=== PATIENT | female | born 1990 | race Two or more races ===

== ENCOUNTER 2016-12-05 11:29 | Emergency (ER) | payer SELFPAY ==
--- NOTE | 2016-12-05 11:50 | ER Document Report ---
ED Medical Screen (RME) - General Stated Complaint: VOMITTING,DIARRHEA Notes: started new medications and states her symptoms started immediately after she took them onset: monday c/o vomiting and diarrhea PCP: in [place] I have greeted and performed a rapid initial assessment of this patient. A comprehensive ED assessment and evaluation of the patient, analysis of test results and completion of the medical decision making process will be conducted by additional ED providers. TRAVEL OUTSIDE OF THE [place] IN LAST 30 DAYS: No - Related Data Allergies/Adverse Reactions: No Known Allergies Allergy (Verified 12/05/16 11:47) Past Medical History - Past Medical History Cardiac Medical History: Reports: Hx Hypertension - Hypertensive only with preeclampsia during her . Denies: Hx Congestive Heart Failure, Hx DVT, Hx Heart Attack, Hx Hypercholesterolemia, Hx Pulmonary Embolism Pulmonary Medical History: Denies: Hx Asthma, Hx COPD Neurological Medical History: Denies: Hx Seizures Endocrine Medical History: Reports: Hx Hypothyroidism. Denies: Hx Diabetes Mellitus Type 1, Hx Diabetes Mellitus Type 2, Hx Hyperthyroidism GI Medical History: Denies: Hx Cirrhosis, Hx Gastroesophageal Reflux Disease, Hx Hepatitis Musculoskeltal Medical History: Denies Hx Arthritis Psychiatric Medical History: Reports: Hx Depression Infectious Medical History: Reports: Hx HIV. Denies: Hx Hepatitis - Immunizations Immunizations up to date: Yes Hx Diphtheria, Pertussis, Tetanus Vaccination: Yes Physical Exam - Vital signs Vitals: Temp Pulse Resp BP Pulse Ox 98.0 F 121 H 20 101/68 98 12/05/16 11:46 12/05/16 11:46 12/05/16 11:46 12/05/16 11:46 12/05/16 11:46 Course - Vital Signs Vital signs: Temp Pulse Resp BP Pulse Ox 98.0 F 121 H 20 101/68 98 12/05/16 11:46 12/05/16 11:46 12/05/16 11:46 12/05/16 11:46 12/05/16 11:46
[2016-12-05] MEDS ORDERED: ONDANSETRON HCL 8 MG TABLET PO ONE (11:51)
[2016-12-05 12:14] LABS: ABSOLUTE LYMPHOCYTES (AUTO) 0.5 10^3/uL (0.5-4.7); ABSOLUTE MONOCYTES (AUTO) 0.3 10^3/uL (0.1-1.4); ABSOLUTE NEUT (AUTO) 3.2 10^3/uL (1.7-8.2); BASOPHILS % (AUTO) 0.5 % (0-2); EOSINOPHILS % (AUTO) 1.1 % (0-6); HEMATOCRIT 30.7 % (36.0-47.0); HGB HCT DIFFERENCE -0.7; LYMPHOCYTES % (AUTO) 11.4 % (13-45); MEAN CORPUSCULAR HGB CONC 32.4 g/dL (32.0-36.0); MEAN CORPUSCULAR VOLUME 74 fl (80-97); MONOCYTES % (AUTO) 8.4 % (3-13); RED BLOOD COUNT 4.15 10^6/uL (3.72-5.28); RED CELL DISTRIBUTION WIDTH 15.9 % (11.5-14.0); SEGMENTED NEUTROPHILS % (AUTO) 78.6 % (42-78)
[2016-12-05] MEDS ORDERED: NORMAL SALINE 1000 ML 1,000 ML IV ONE (12:27)
[2016-12-05 12:34] LABS: ALANINE AMINOTRANSFERASE 24 U/L (9-52); ALBUMIN 3.7 g/dL (3.5-5.0); ALKALINE PHOSPHATASE 63 U/L (38-126); ANION GAP 15 (5-19); ASPARTATE AMINO TRANSFERASE 28 U/L (14-36); BILIRUBIN,TOTAL 0.7 mg/dL (0.2-1.3); BLOOD UREA NITROGEN 26 mg/dL (7-20); CALCIUM 9.2 mg/dL (8.4-10.2); CARBON DIOXIDE 24 mmol/L (22-30); CHLORIDE 103 mmol/L (98-107); CREATININE RESULT 0.66 mg/dL (0.52-1.25); GLUCOSE 91 mg/dL (75-110); LIPASE 76.2 U/L (23-300); POTASSIUM 3.6 mmol/L (3.6-5.0); SODIUM 142.3 mmol/L (137-145); TOTAL PROTEIN 6.7 g/dL (6.3-8.2)
[2016-12-05] MEDS ORDERED: MORPHINE SULFATE 10 MG/ML INJ IV ONE (13:15)
--- NOTE | 2016-12-05 15:16 | ER Document Report ---
ED General - General Chief Complaint: Vomiting/Diarrhea Stated Complaint: VOMITTING,DIARRHEA Mode of Arrival: Ambulatory Information source: Patient Notes: 26-year-old female history of HIV who was just started on her antiviral medications began having profuse vomiting and diarrhea 6 hours after. Patient denies any fevers or chills, notes decreased oral intake TRAVEL OUTSIDE OF THE [place] IN LAST 30 DAYS: No - HPI Onset: Other - Three-day duration Onset/Duration: Persistent Quality of pain: No pain Severity: Mild Pain Level: Denies Associated symptoms: Diarrhea, Nausea, Vomiting Exacerbated by: Denies Relieved by: Denies Similar symptoms previously: No Recently seen / treated by doctor: No - Related Data Allergies/Adverse Reactions: No Known Allergies Allergy (Verified 12/05/16 11:47) Past Medical History - Social History Smoking Status: Current Every Day Smoker Cigarette use (# per day): No Chew tobacco use (# tins/day): No Smoking Education Provided: No Frequency of alcohol use: None Drug Abuse: None Family History: Reviewed & Not Pertinent Patient has suicidal ideation: No Patient has homicidal ideation: No - Past Medical History Cardiac Medical History: Reports: Hx Hypertension - Hypertensive only with preeclampsia during her . Denies: Hx Congestive Heart Failure, Hx DVT, Hx Heart Attack, Hx Hypercholesterolemia, Hx Pulmonary Embolism Pulmonary Medical History: Denies: Hx Asthma, Hx COPD Neurological Medical History: Denies: Hx Seizures Endocrine Medical History: Reports: Hx Hypothyroidism. Denies: Hx Diabetes Mellitus Type 1, Hx Diabetes Mellitus Type 2, Hx Hyperthyroidism Renal/ Medical History: Denies: Hx Peritoneal Dialysis GI Medical History: Denies: Hx Cirrhosis, Hx Gastroesophageal Reflux Disease, Hx Hepatitis Musculoskeltal Medical History: Denies Hx Arthritis Psychiatric Medical History: Reports: Hx Depression Infectious Medical History: Reports: Hx HIV. Denies: Hx Hepatitis - Immunizations Immunizations up to date: Yes Hx Diphtheria, Pertussis, Tetanus Vaccination: Yes Review of Systems - Review of Systems Notes: REVIEW OF SYSTEMS: CONSTITUTIONAL : Denies fever, chills, or sweats. Denies recent illness. EENT: Denies eye, ear, throat, or mouth pain or symptoms. Denies nasal or sinus congestion or discharge. Denies throat, tongue, or mouth swelling or difficulty swallowing. CARDIOVASCULAR: Denies chest pain. Denies palpitations or racing or irregular heart beat. Denies ankle edema. RESPIRATORY: Denies cough, cold, or chest congestion. Denies shortness of breath, difficulty breathing, or wheezing. GASTROINTESTINAL: admits to nausea vomiting diarrhea GENITOURINARY: Denies difficulty urinating, painful urination, burning, frequency, blood in urine, or discharge. FEMALE GENITOURINARY: Denies vaginal bleeding, heavy or abnormal periods, irregular periods. Denies vaginal discharge or odor. MUSCULOSKELETAL: Denies back or neck pain or stiffness. Denies joint pain or swelling. SKIN: Denies rash, lesions or sores. HEMATOLOGIC : Denies easy bruising or bleeding. LYMPHATIC: Denies swollen, enlarged glands. NEUROLOGICAL: Denies confusion or altered mental status. Denies passing out or loss of consciousness. Denies dizziness or lightheadedness. Denies headache. Denies weakness or paralysis or loss of use of either side. Denies problems with gait or speech. Denies sensory loss, numbness, or tingling. Denies seizures. PSYCHIATRIC: Denies anxiety or stress. Denies depression, suicidal ideation, or homicidal ideation. ALL OTHER SYSTEMS REVIEWED AND NEGATIVE. Dictation was performed using [employer] voice recognition software PHYSICAL EXAMINATION: GENERAL: thin Well-appearing, and in no acute distress. HEAD: Atraumatic, normocephalic. EYES: Pupils equal round and reactive to light, extraocular movements intact, conjunctiva are normal. ENT: Nares patent, oropharynx clear without exudates. Moist mucous membranes. NECK: Normal range of motion, supple without lymphadenopathy LUNGS: Breath sounds clear to auscultation bilaterally and equal. No wheezes rales or rhonchi. HEART: Regular rate and rhythm without murmurs ABDOMEN: Soft, nontender, nondistended abdomen. No guarding, no rebound. No masses appreciated. Female : deferred Musculoskeletal: Normal range of motion, no pitting or edema. No cyanosis. NEUROLOGICAL: Cranial nerves grossly intact. Normal speech, normal gait. Normal sensory, motor exams PSYCH: Normal mood, normal affect. SKIN: Warm, Dry, normal turgor, no rashes or lesions noted. Physical Exam - Vital signs Vitals: Temp Pulse Resp BP Pulse Ox 98.0 F 121 H 20 101/68 98 12/05/16 11:46 12/05/16 11:46 12/05/16 11:46 12/05/16 11:46 12/05/16 11:46 Course - Re-evaluation Re-evalutation: 12/05/16 15:29 pts presentation is consistent with medication side effects, pt cannot stop these medications , i will treat her wiuth antinausea meds. otherwise patient also requests treatment for her outbreak of herpes, patient is already on valacyclovir. I will give her lidocaine jelly After performing a Medical Screening Examination, I estimate there is LOW risk for ACUTE APPENDICITIS, BOWEL OBSTRUCTION, ACUTE CHOLECYSTITIS, PERFORATED DIVERTICULITIS, INCARCERATED HERNIA, PANCREATITIS, PELVIC INFLAMMATORY DISEASE, PERFORATED ULCER, ECTOPIC , or TUBO-OVARIAN ABSCESS, thus I consider the discharge disposition reasonable. Also, there is no evidence or peritonitis , sepsis, or toxicity. The patient and I have discussed the diagnosis and risks , and we agree with discharging home with close follow-up with the understanding that symptoms and presentations can change. We also discussed returning to the Emergency Department immediately if new or worsening symptoms occur. We have discussed the symptoms which are most concerning (e.g., bloody stool, fever, changing or worsening pain, vomiting) that necessitate immediate return. 12/05/16 15:40 - Vital Signs Vital signs: Temp Pulse Resp BP Pulse Ox 98.0 F 121 H 20 101/68 98 12/05/16 11:46 12/05/16 11:46 12/05/16 11:46 12/05/16 11:46 12/05/16 11:46 - Laboratory Result Diagrams: 12/05/16 12:01 12/05/16 12:01 Laboratory results interpreted by me: 12/05/16 12/05/16 12:01 12:01 Hgb 10.0 L Hct 30.7 L MCV 74 L MCH 24.0 L RDW 15.9 H Plt Count 145 L Seg Neutrophils % 78.6 H Lymphocytes % 11.4 L BUN 26 H Discharge - Discharge Clinical Impression: HIV (human immunodeficiency virus infection) Nausea & vomiting Qualifiers: Vomiting type: unspecified Vomiting Intractability: non-intractable Qualified Code(s): R11.2 - Nausea with vomiting, unspecified Condition: Stable Disposition: HOME, SELF-CARE Instructions: Antinausea Medication ([facility]) Additional Instructions: Follow up with your physician tomorrow for further care or return to the ED IMMEDIATELY if symptoms worsen or new concerns occur Prescriptions: Lidocaine HCl [Xylocaine 5% Ointment 35.44 gm] 1 applic TP DAILY #1 tube Metoclopramide HCl [Reglan] 10 mg PO Q6 #30 tablet Ondansetron HCl [Zofran 4 mg Tablet] 1 - 2 tab PO Q4H PRN #20 tablet PRN Reason: Promethazine HCl [Phenergan 25 mg Tablet] 25 - 50 mg PO ASDIR PRN #30 tablet PRN Reason:
[2016-12-05 15:38] VITALS: BP 101/63
== END 2016-12-05 15:38 | disposition home or self-care (01) ==
LOC: ER 11:29
DX: R11.2 Nausea with vomiting, unspecified (principal); R19.7 Diarrhea, unspecified; B00.9 Herpesviral infection, unspecified; Z21 Asymptomatic human immunodeficiency virus [HIV] infection status; F17.200 Nicotine dependence, unspecified, uncomplicated
CPT/HCPCS: 99284; 96361; 96374; 36415; 83690; 85025; 80053; J2270; S0119; J7030

== ENCOUNTER 2018-02-03 11:23 | Emergency (ER) | payer SELFPAY ==
[2018-02-03] MEDS ORDERED: ONDANSETRON HCL INJ/PF 4 MG/2 ML SDV IV ONE ×2 (11:57→13:57)
[2018-02-03] MEDS ORDERED: NORMAL SALINE 1000 ML 1,000 ML IV ONE ×2 (11:57→12:48)
--- NOTE | 2018-02-03 12:02 | ER Document Report ---
ED Medical Screen (RME) - General Chief Complaint: Nausea/Vomiting Stated Complaint: VOMITING Time Seen by Provider: 02/03/18 11:49 Mode of Arrival: Ambulatory Information source: Patient Notes: 27 y.o female who is HIV positive presents to the ED with concern for her white blood cell count because she has not been able to keep her medications down since January 30. She states that she has never had a nausea/vomiting episode like this before but has had her CD count lower than 200 once before. Pt states a cough and sour taste in her mouth. She states that she tried to eat on 02/01/18 but was unable to keep her food down. She denies any fever, genitourinary issues or CP. She notes some tightness in her abd but denies any other abd pain. Pt denies any changes in medications. I have greeted and performed a rapid initial assessment of the patient. A comprehensive ED assessment and evaluation of the patient, analysis of test results, and completion of the medical decision making process will be conducted by additional ED providers. TRAVEL OUTSIDE OF THE [place] IN LAST 30 DAYS: No - Related Data Allergies/Adverse Reactions: No Known Allergies Allergy (Verified 12/05/16 11:47) Past Medical History - General Information source: Patient - Social History Chew tobacco use (# tins/day): No Frequency of alcohol use: Occasional Drug Abuse: None - Past Medical History Cardiac Medical History: Reports: Hx Hypertension - Hypertensive only with preeclampsia during her . Endocrine Medical History: Reports: Hx Hypothyroidism Renal/ Medical History: Denies: Hx Peritoneal Dialysis Psychiatric Medical History: Reports: Hx Depression Infectious Medical History: Reports: Hx HIV - Immunizations Immunizations up to date: Yes Hx Diphtheria, Pertussis, Tetanus Vaccination: Yes Review of Systems - Review of Systems Constitutional: See HPI. denies: Fever EENT: No symptoms reported Cardiovascular: See HPI. denies: Chest pain Respiratory: See HPI, Cough Gastrointestinal: See HPI, Nausea, Vomiting, Other - Sour taste in mouth Genitourinary: See HPI Female Genitourinary: See HPI Musculoskeletal: No symptoms reported Skin: No symptoms reported Hematologic/Lymphatic: See HPI Neurological/Psychological: No symptoms reported -: Yes All other systems reviewed and negative Physical Exam - Vital signs Vitals: Temp Pulse Resp BP Pulse Ox 97.7 F 145 H 20 124/73 95 02/03/18 11:28 02/03/18 11:28 02/03/18 11:28 02/03/18 11:28 02/03/18 11:28 - Notes Notes: Physical Exam: General: Alert, appears well. HEENT: Normocephalic. Atraumatic. PERRLA. Extraocular movements intact. Oropharynx clear. Dry mucus membrane. Neck: Supple. Respiratory: No respiratory distress. Abdominal: Normal Inspection. No distension. Extremities: Moves all four extremities. Neurological: Normal cognition. AAOx4. Normal speech. Psychological: Normal affect. Normal Mood. Skin: Warm. Dry. Normal color. Course - Vital Signs Vital signs: Temp Pulse Resp BP Pulse Ox 97.7 F 145 H 20 124/73 95 02/03/18 11:28 02/03/18 11:28 02/03/18 11:28 02/03/18 11:28 02/03/18 11:28 Doctor's Discharge - Discharge Referrals: KANG MARMOLEJO FNP [Primary Care Provider] - Follow up as needed Scribe Documentation - Scribe Written by Teree:: Amna Mejía, 02/03/18 [id number] acting as scribe for :: Haile
[2018-02-03 12:55] LABS: HEMATOCRIT 42.3 % (36.0-47.0); HEMOGLOBIN 13.9 g/dL (12.0-15.5); MEAN CORPUSCULAR HEMOGLOBIN 26.1 pg (27.0-33.4); MEAN CORPUSCULAR HGB CONC 32.9 g/dL (32.0-36.0); MEAN CORPUSCULAR VOLUME 79 fl (80-97); PLATELET COUNT 125 10^3/uL (150-450); RED BLOOD COUNT 5.33 10^6/uL (3.72-5.28); RED CELL DISTRIBUTION WIDTH 14.4 % (11.5-14.0); WHITE BLOOD COUNT 3.4 10^3/uL (4.0-10.5)
[2018-02-03 12:58] LABS: APPEARANCE,URINE CLOUDY; BILIRUBIN,URINE NEGATIVE (NEGATIVE); CALCIUM OXALATE CRYSTALS,URINE RARE /HPF; COLOR,URINE AMBER; GLUCOSE, URINE NEGATIVE (NEGATIVE); KETONES,URINE NEGATIVE (NEGATIVE); LEUKOCYTE ESTERASE,URINE NEGATIVE (NEGATIVE); NITRITE,URINE NEGATIVE (NEGATIVE); PROTEIN,URINE 100 mg/dL (NEGATIVE); TRIPLE PHOSPHATE CRYSTAL,URINE MODERATE /HPF; URINE SPECIFIC GRAVITY 1.029
--- NOTE | 2018-02-03 13:11 | ER Document Report ---
ED GI/ - General Chief Complaint: Nausea/Vomiting Stated Complaint: VOMITING Time Seen by Provider: 02/03/18 11:49 Mode of Arrival: Ambulatory Information source: Patient Notes: 27-year-old HIV-positive female that smokes cigarettes is complaining of intermittent nausea and vomiting since Monday. She felt better Monday but has reoccurred Monday night and through today. Her normal thin weight is 106 and she is down to 85 pounds. No fever or chills. No thrush. No dysuria. Upper abdominal pain she attributes to vomiting. No diarrhea. No cough. No history of surgeries. Patient states that she has been having palpitations this week. Had low CD4 count and high viral load when she had pneumonia 2016 but now she has been on her HIV medications since then. TRAVEL OUTSIDE OF THE [place] IN LAST 30 DAYS: No - Related Data Allergies/Adverse Reactions: No Known Allergies Allergy (Verified 12/05/16 11:47) Past Medical History - General Information source: Patient - Social History Smoking Status: Current Every Day Smoker Chew tobacco use (# tins/day): No Frequency of alcohol use: Occasional - Last Drug Abuse: None Family History: Reviewed & Not Pertinent Patient has suicidal ideation: No Patient has homicidal ideation: No - Past Medical History Cardiac Medical History: Reports: Hx Hypertension - Hypertensive only with preeclampsia during her . Endocrine Medical History: Reports: Hx Hypothyroidism Renal/ Medical History: Denies: Hx Peritoneal Dialysis Psychiatric Medical History: Reports: Hx Depression Infectious Medical History: Reports: Hx HIV Surgical Hx: Negative - Immunizations Immunizations up to date: Yes Hx Diphtheria, Pertussis, Tetanus Vaccination: Yes Review of Systems - Review of Systems Constitutional: No symptoms reported EENT: No symptoms reported Cardiovascular: See HPI Respiratory: No symptoms reported Gastrointestinal: See HPI Genitourinary: No symptoms reported Female Genitourinary: No symptoms reported Musculoskeletal: No symptoms reported Skin: No symptoms reported Hematologic/Lymphatic: No symptoms reported Neurological/Psychological: No symptoms reported Physical Exam - Vital signs Vitals: Temp Pulse Resp BP Pulse Ox 97.7 F 145 H 20 124/73 95 02/03/18 11:28 02/03/18 11:28 02/03/18 11:28 02/03/18 11:28 02/03/18 11:28 Interpretation: Tachycardic - General General appearance: Appears well, Alert - HEENT Head: Normocephalic, Atraumatic Eyes: Normal Pupils: PERRL - Respiratory Respiratory status: No respiratory distress Chest status: Nontender Breath sounds: Normal Chest palpation: Normal - Cardiovascular Rhythm: Regular, Tachycardia Heart sounds: Normal auscultation Murmur: No - Abdominal Inspection: Normal Distension: No distension Bowel sounds: Normal Tenderness: Tender - Epigastric and right upper quadrant. No: Brar's sign Organomegaly: No organomegaly - Back Back: Normal, Nontender. No: CVA tenderness - Extremities General upper extremity: Normal inspection, Nontender, Normal color, Normal ROM , Normal temperature General lower extremity: Normal inspection, Nontender, Normal color, Normal ROM , Normal temperature, Normal weight bearing. No: Shakira's sign - Neurological Neuro grossly intact: Yes Cognition: Normal Orientation: AAOx4 Anderson Coma Scale Eye Opening: Spontaneous Fadumo Coma Scale Verbal: Oriented Anderson Coma Scale Motor: Obeys Commands Fadumo Coma Scale Total: 15 Speech: Normal Motor strength normal: LUE, RUE, LLE, RLE Sensory: Normal - Psychological Associated symptoms: Normal affect, Normal mood - Skin Skin Temperature: Warm Skin Moisture: Dry Skin Color: Normal Skin irregularity: negative: Rash Course - Re-evaluation Re-evalutation: 02/03/18 14:18 Liver enzymes are mildly elevated I will have the patient stop drinking alcohol and stop Tylenol and have those repeated in 2 weeks. Her pulse is now 100 and 1 :10 and 1/2 L of fluid. She is no longer nauseated. No vomiting. White blood cell count is 3.4. Hemoglobin 13.9. Lipase is 185. She is not . Specific gravity of the urine is 1.029 without infection. 02/03/18 14:32 Patient is eating crackers and drinking kelly priscilla. I discussed with Dr. hernandez and he states that since her lymphocytes are 1700 and that that would correlate with a good CD4 count. 02/03/18 14:35 EKG is sinus tachycardia with no ectopy. TSH added. 02/03/18 14:36 02/03/18 14:59 Patient is up going to the bathroom she feels a lot better her heart rate was 103 when I was in the room. She feels like she go home. No abd. pain She is drank fluids and ate multiple crackers without vomiting she does not have any nausea. Copies of all lab work of been given to the patient. She will call me back for the TSH. 02/03/18 15:00 - Vital Signs Vital signs: Temp Pulse Resp BP Pulse Ox 97.7 F 145 H 21 H 114/79 100 02/03/18 11:28 02/03/18 11:28 02/03/18 14:07 02/03/18 14:07 02/03/18 14:07 - Laboratory Result Diagrams: 02/03/18 12:20 02/03/18 12:20 Laboratory results interpreted by me: 02/03/18 02/03/18 02/03/18 12:02 12:20 12:20 WBC 3.4 L RBC 5.33 H MCV 79 L MCH 26.1 L RDW 14.4 H Plt Count 125 L Seg Neuts % (Manual) 39 L Band Neutrophils % 1 L Lymphocytes % (Manual) 49 H Abs Neuts (Manual) 1.4 L Sodium 145.5 H BUN 32 H Calcium 10.9 H Direct Bilirubin 0.6 H AST 46 H ALT 115 H Total Protein 8.4 H Urine Protein 100 H Urine Urobilinogen 4.0 H Discharge - Discharge Clinical Impression: Dehydration, Weight loss, Liver enzyme elevation Nausea and vomiting Qualifiers: Vomiting type: unspecified Vomiting Intractability: non-intractable Qualified Code(s): R11.2 - Nausea with vomiting, unspecified Condition: Good Disposition: HOME, SELF-CARE Instructions: Antinausea Medication ([facility]), Dehydration ([facility]), Intravenous (IV) Fluids ([facility]), Vomiting ([facility]) Additional Instructions: plenty of fluids advance diet as tolerated to er if worse No alcohol or Tylenol Repeat liver enzymes in 2 weeks Call your infectious disease doctor and find out with your most recent CD4 and viral load is call me in 2 hours for the TSH result continue to hydrate and eat food Prescriptions: Ondansetron HCl [Zofran 4 mg Tablet] 1 - 2 tab PO Q4H PRN #30 tablet PRN Reason: Forms: Return to Work Referrals: JALEEL,JOSE KAPADIA [Primary Care Provider] - Follow up as needed
[2018-02-03 13:13] LABS: ALANINE AMINOTRANSFERASE 115 U/L (9-52); ALBUMIN 4.8 g/dL (3.5-5.0); ALKALINE PHOSPHATASE 56 U/L (38-126); ANION GAP 16 (5-19); ASPARTATE AMINO TRANSFERASE 46 U/L (14-36); BILIRUBIN,DIRECT 0.6 mg/dL (0.0-0.4); BLOOD UREA NITROGEN 32 mg/dL (7-20); CALCIUM 10.9 mg/dL (8.4-10.2); CARBON DIOXIDE 24 mmol/L (22-30); CHLORIDE 106 mmol/L (98-107); GLUCOSE 94 mg/dL (75-110); POTASSIUM 4.3 mmol/L (3.6-5.0); SODIUM 145.5 mmol/L (137-145); TOTAL PROTEIN 8.4 g/dL (6.3-8.2)
[2018-02-03 13:17] LABS: ABSOLUTE LYMPHOCYTES# (MANUAL) 1.7 10^3/uL (0.5-4.7); ABSOLUTE MONOCYTES # (MANUAL) 0.3 10^3/uL (0.1-1.4); ABSOLUTE NEUTROPHILS# (MANUAL) 1.4 10^3/uL (1.7-8.2); BAND NEUTROPHILS % (MANUAL) 1 % (3-5); BASOPHILS % (MANUAL) 0 % (0-2); EOSINOPHILS % (MANUAL) 0 % (0-6); LYMPHOCYTES % (MANUAL) 49 % (13-45); MONOCYTES % (MANUAL) 9 % (3-13); SEGMENTED NEUTROPHILS % (MAN) 39 % (42-78); TOTAL CELLS COUNTED 100
[2018-02-03 13:18] LABS: HYPOCHROMASIA 1+; OVALOCYTES SLIGHT; PLATELET COMMENT ADEQUATE; POIKILOCYTOSIS SLIGHT
--- NOTE | 2018-02-03 13:54 | RADIOLOGY REPORT (SQ) ---
EXAM DESCRIPTION: U/S ABDOMEN LIMITED W/O DOP COMPLETED DATE/TIME: 02/03/2018 1:37 pm REASON FOR STUDY: epigastric ruq tender COMPARISON: None. TECHNIQUE: Dynamic and static grayscale images acquired of the abdomen and recorded on PACS. Additio bon selected color Doppler and spectral images recorded. LIMITATIONS: None. FINDINGS: PANCREAS: No masses. Visualized pancreatic duct normal caliber. LIVER: No masses. Echotexture normal. LIVER VASCULATURE: Normal directional flow of the main portal vein and hepatic veins. GALLBLADDER: No stones. Normal wall thickness. No pericholecystic fluid. ULTRASOUND-DETECTED SANCHEZ'S SIGN: Negative. INTRAHEPATIC DUCTS AND COMMON DUCT: CBD and intrahepatic ducts normal caliber. No filling defects. INFERIOR VENA CAVA: Normal flow. AORTA: No aneurysm. RIGHT KIDNEY: Normal size. Normal echogenicity. No solid or suspicious masses. No hydronephrosis. No calcifications. PERITONEAL AND RIGHT PLEURAL SPACE: No ascites or effusions. OTHER: No other significant findings. IMPRESSION: NORMAL RIGHT UPPER QUADRANT ULTRASOUND. TECHNICAL DOCUMENTATION: JOB ID: [id number] [employer]- All Rights Reserved Reading location - IP/workstation name: [email or web address]
[2018-02-03 15:35] VITALS: BP 112/76
--- NOTE | 2018-02-03 16:23 | EKG REPORT ---
SEVERITY:- OTHERWISE NORMAL ECG - SINUS TACHYCARDIA : Confirmed by: Brendan Aranda MD 03-Feb-2018 16:22:25
== END 2018-02-03 15:34 | disposition home or self-care (01) ==
LOC: ER 11:23
DX: E86.0 Dehydration (principal); R63.4 Abnormal weight loss; R94.5 Abnormal results of liver function studies; R74.8 Abnormal levels of other serum enzymes; R11.2 Nausea with vomiting, unspecified; F17.210 Nicotine dependence, cigarettes, uncomplicated; I10 Essential (primary) hypertension; E03.9 Hypothyroidism, unspecified; Z21 Asymptomatic human immunodeficiency virus [HIV] infection status
CPT/HCPCS: 93005; 96376; 99284; 96361; 96374; 36415; 84439; 83690; 83735; 84443; 84703; 85025; 80053; 81001; 76705; 93010; J2405; J7030

== ENCOUNTER 2018-02-09 15:42 | Emergency (ER) | payer SELFPAY ==
[2018-02-09] MEDS ORDERED: METOCLOPRAMIDE HCL INJ/PF 10 MG/2 ML SDV IV ONE (16:28)
--- NOTE | 2018-02-09 16:29 | ER Document Report ---
ED Medical Screen (RME) - General Chief Complaint: General Weakness Stated Complaint: WEAKNESS Time Seen by Provider: 02/09/18 16:22 Mode of Arrival: Ambulatory Information source: Patient Notes: 27-year-old female presents with complaints of nausea vomiting and weight loss over the past month patient noted to be tachycardic upon arrival patient has history of HIV I have greeted and performed a rapid initial assessment of this patient. A comprehensive ED assessment and evaluation of the patient, analysis of test results and completion of the medical decision making process will be conducted by additional ED providers. PHYSICAL EXAMINATION: GENERAL: Cachectic appearing HEAD: Atraumatic, normocephalic. EYES: Pupils equal round extraocular movements intact, conjunctiva are normal. ENT: Nares patent NECK: Normal range of motion LUNGS: No respiratory distress Heart: tachycardia Musculoskeletal: Normal range of motion NEUROLOGICAL: Normal speech, normal gait. PSYCH: Normal mood, normal affect. SKIN: Warm, Dry, normal turgor, no rashes or lesions noted. TRAVEL OUTSIDE OF THE [place] IN LAST 30 DAYS: No - Related Data Allergies/Adverse Reactions: No Known Allergies Allergy (Verified 12/05/16 11:47) Past Medical History - Past Medical History Cardiac Medical History: Reports: Hx Hypertension - Hypertensive only with preeclampsia during her . Denies: Hx Congestive Heart Failure, Hx DVT, Hx Heart Attack, Hx Hypercholesterolemia, Hx Pulmonary Embolism Pulmonary Medical History: Denies: Hx Asthma, Hx COPD Neurological Medical History: Denies: Hx Seizures Endocrine Medical History: Reports: Hx Hypothyroidism. Denies: Hx Diabetes Mellitus Type 1, Hx Diabetes Mellitus Type 2, Hx Hyperthyroidism Renal/ Medical History: Denies: Hx Peritoneal Dialysis GI Medical History: Denies: Hx Cirrhosis, Hx Gastroesophageal Reflux Disease, Hx Hepatitis Musculoskeltal Medical History: Denies Hx Arthritis Psychiatric Medical History: Reports: Hx Depression Infectious Medical History: Reports: Hx HIV. Denies: Hx Hepatitis - Immunizations Immunizations up to date: Yes Hx Diphtheria, Pertussis, Tetanus Vaccination: Yes Physical Exam - Vital signs Vitals: Temp Pulse Resp BP Pulse Ox 97.9 F 162 H 18 108/67 97 02/09/18 15:46 02/09/18 15:46 02/09/18 15:46 02/09/18 15:46 02/09/18 15:46 Course - Vital Signs Vital signs: Temp Pulse Resp BP Pulse Ox 97.9 F 162 H 18 108/67 97 02/09/18 15:46 02/09/18 15:46 02/09/18 15:46 02/09/18 15:46 02/09/18 15:46
--- NOTE | 2018-02-09 17:09 | ER Document Report ---
ED Extremity Problem, Lower - General Chief Complaint: General Weakness Stated Complaint: WEAKNESS Time Seen by Provider: 02/09/18 16:22 Mode of Arrival: Ambulatory Information source: Patient Notes: 27 yo female returned to ER, lost weight, nausea no better, can't keep HIV meds down, when she tries to eat she vomits it back up. Last worked on Monday and was sent home. Will have episodes of feeling better, but then recurs. Lost 5 lbs since last monday. Feels some pressure on her stomach- from the outside. Used to thyroid medication years ago. No fever. TRAVEL OUTSIDE OF THE [place] IN LAST 30 DAYS: No - Related Data Allergies/Adverse Reactions: No Known Allergies Allergy (Verified 12/05/16 11:47) Past Medical History - General Information source: Patient - Social History Smoking Status: Current Every Day Smoker Family History: Reviewed & Not Pertinent Patient has suicidal ideation: No Patient has homicidal ideation: No - Past Medical History Cardiac Medical History: Reports: Hx Hypertension - Hypertensive only with preeclampsia during her . Denies: Hx Congestive Heart Failure, Hx DVT, Hx Heart Attack, Hx Hypercholesterolemia, Hx Pulmonary Embolism Pulmonary Medical History: Denies: Hx Asthma, Hx COPD Neurological Medical History: Denies: Hx Seizures Endocrine Medical History: Reports: Hx Hypothyroidism. Denies: Hx Diabetes Mellitus Type 1, Hx Diabetes Mellitus Type 2, Hx Hyperthyroidism Renal/ Medical History: Denies: Hx Peritoneal Dialysis GI Medical History: Denies: Hx Cirrhosis, Hx Gastroesophageal Reflux Disease, Hx Hepatitis Musculoskeltal Medical History: Denies Hx Arthritis Psychiatric Medical History: Reports: Hx Depression Infectious Medical History: Reports: Hx HIV. Denies: Hx Hepatitis - Immunizations Immunizations up to date: Yes Hx Diphtheria, Pertussis, Tetanus Vaccination: Yes Physical Exam - Vital signs Vitals: Temp Pulse Resp BP Pulse Ox 97.9 F 162 H 18 108/67 97 02/09/18 15:46 02/09/18 15:46 02/09/18 15:46 02/09/18 15:46 02/09/18 15:46 Course - Vital Signs Vital signs: Temp Pulse Resp BP Pulse Ox 97.9 F 162 H 18 108/67 97 02/09/18 15:46 02/09/18 15:46 02/09/18 15:46 02/09/18 15:46 02/09/18 15:46 Discharge - Discharge Referrals: KANG MARMOLEJO FNP [Primary Care Provider] - Follow up as needed
--- NOTE | 2018-02-09 17:39 | RADIOLOGY REPORT (SQ) ---
EXAM DESCRIPTION: CHEST PA/LAT COMPLETED DATE/TIME: 02/09/2018 5:30 pm REASON FOR STUDY: vomiting, tachycardia, HIV pt COMPARISON: 10/12/2016 EXAM PARAMETERS: NUMBER OF VIEWS: two views TECHNIQUE: Digital Frontal and Lateral radiographic views of the chest acquired. RADIATION DOSE: NA LIMITATIONS: none FINDINGS: LUNGS AND PLEURA: No opacities, masses or pneumothorax. No pleural effusion. MEDIASTINUM AND HILAR STRUCTURES: No masses or contour abnormalities. HEART AND VASCULAR STRUCTURES: Heart normal size. No evidence for failure. BONES: No acute findings. HARDWARE: None in the chest. OTHER: No other significant finding. IMPRESSION: NO SIGNIFICANT RADIOGRAPHIC FINDING IN THE CHEST. TECHNICAL DOCUMENTATION: JOB ID: [id number] [employer]- All Rights Reserved Reading location - IP/workstation name: [email or web address]
--- NOTE | 2018-02-09 17:54 | ER Document Report ---
ED Dizziness/Weakness - General Chief Complaint: General Weakness Stated Complaint: WEAKNESS Time Seen by Provider: 02/09/18 16:22 Mode of Arrival: Ambulatory Notes: 27 yo female returned to ER, lost weight, nausea no better, can't keep HIV meds down, when she tries to eat she vomits it back up. Last worked on Monday and was sent home. Will have episodes of feeling better, but then recurs. Lost 5 lbs since last monday. Feels some pressure on her stomach- from the outside. Used to take thyroid medication years ago. No fever. Her sister made her come today. Seen 02-03 for similar symptoms with elevated liver enzymes, TSH 0.01 and free T4 6.4 which is elevated. Gets dizzy when stands for long times. ABD US negative on 02-03. No black or blood in stools. TRAVEL OUTSIDE OF THE [place] IN LAST 30 DAYS: No - Related Data Allergies/Adverse Reactions: No Known Allergies Allergy (Verified 12/05/16 11:47) Past Medical History - General Information source: Patient - Social History Smoking Status: Current Every Day Smoker Frequency of alcohol use: None Drug Abuse: None Occupation: [employer] Lives with: Family - sister Family History: Reviewed & Not Pertinent Patient has suicidal ideation: No Patient has homicidal ideation: No - Past Medical History Cardiac Medical History: Reports: Hx Hypertension - Hypertensive only with preeclampsia during her . Neurological Medical History: Denies: Hx Seizures Endocrine Medical History: Reports: Hx Hypothyroidism Renal/ Medical History: Denies: Hx Peritoneal Dialysis Psychiatric Medical History: Reports: Hx Depression Infectious Medical History: Reports: Hx HIV. Denies: Hx Hepatitis Surgical Hx: Negative - Immunizations Immunizations up to date: Yes Hx Diphtheria, Pertussis, Tetanus Vaccination: Yes Review of Systems - Review of Systems Constitutional: See HPI EENT: No symptoms reported Cardiovascular: See HPI Respiratory: No symptoms reported Gastrointestinal: See HPI Genitourinary: No symptoms reported Female Genitourinary: No symptoms reported Musculoskeletal: No symptoms reported Skin: No symptoms reported Hematologic/Lymphatic: No symptoms reported Neurological/Psychological: No symptoms reported Physical Exam - Vital signs Vitals: Temp Pulse Resp BP Pulse Ox 97.9 F 162 H 18 108/67 97 02/09/18 15:46 02/09/18 15:46 02/09/18 15:46 02/09/18 15:46 02/09/18 15:46 Interpretation: Tachycardic - General General appearance: Appears well, Alert - HEENT Head: Normocephalic, Atraumatic Eyes: Normal Pupils: PERRL - Respiratory Respiratory status: No respiratory distress Chest status: Nontender Breath sounds: Normal Chest palpation: Normal - Cardiovascular Rhythm: Regular Heart sounds: Normal auscultation Murmur: No - Abdominal Inspection: Normal Distension: No distension Bowel sounds: Normal Tenderness: Tender - epigastric to umbilicus Organomegaly: No organomegaly - Back Back: Normal, Nontender. No: CVA tenderness - Extremities General upper extremity: Normal inspection, Nontender, Normal color, Normal ROM , Normal temperature General lower extremity: Normal inspection, Nontender, Normal color, Normal ROM , Normal temperature, Normal weight bearing. No: Shakira's sign - Neurological Neuro grossly intact: Yes Cognition: Normal Orientation: AAOx4 Peterman Coma Scale Eye Opening: Spontaneous Fadumo Coma Scale Verbal: Oriented Peterman Coma Scale Motor: Obeys Commands Peterman Coma Scale Total: 15 Speech: Normal Motor strength normal: LUE, RUE, LLE, RLE Sensory: Normal - Psychological Associated symptoms: Normal affect, Normal mood - Skin Skin Temperature: Warm Skin Moisture: Dry Skin Color: Normal Skin irregularity: negative: Rash Course - Re-evaluation Re-evalutation: 02/09/18 19:09 dr. Thomas called for hospitalist admission at [facility], she does not want accept the pt as we do not have GI , endocrinology or HIV infectious disease back up doctors. Called [facility] for hospitalist admission. They will call me back. liver enzymes 728 ast, alt 870. free t4 and free t3 elevate. asked nurse do to cath urine. 02/09/18 20:13 [facility] called while doing a procedure in another room. they are being repaiged. - Vital Signs Vital signs: Temp Pulse Resp BP Pulse Ox 97.9 F 162 H 29 H 127/92 H 99 02/09/18 15:46 02/09/18 15:46 02/09/18 19:01 02/09/18 19:00 02/09/18 19:01 - Laboratory Result Diagrams: 02/09/18 17:36 02/09/18 17:36 Laboratory results interpreted by me: 02/09/18 02/09/18 02/09/18 17:36 17:36 17:36 RBC 5.44 H MCH 26.1 L RDW 14.1 H Plt Count 128 L Seg Neuts % (Manual) 40 L Monocytes % (Manual) 22 H Abs Neuts (Manual) 1.6 L BUN 27 H Calcium 11.0 H Direct Bilirubin 0.5 H AST 728 H ALT 870 H Free T4 6.93 H Free T3 pg/mL > 22.80 H Urine Protein Urine Ketones Urine Bilirubin Urine Urobilinogen 02/09/18 19:31 RBC MCH RDW Plt Count Seg Neuts % (Manual) Monocytes % (Manual) Abs Neuts (Manual) BUN Calcium Direct Bilirubin AST ALT Free T4 Free T3 pg/mL Urine Protein 100 H Urine Ketones TRACE H Urine Bilirubin SMALL H Urine Urobilinogen 4.0 H Discharge - Discharge Clinical Impression: Liver enzyme elevation, Dehydration, HIV (human immunodeficiency virus infection), Tachycardia, Abdominal pain Nausea and vomiting Qualifiers: Vomiting type: unspecified Vomiting Intractability: non-intractable Qualified Code(s): R11.2 - Nausea with vomiting, unspecified Condition: Fair Disposition: [facility] Referrals: MARMOLEJO,JOSE KAPADIA [Primary Care Provider] - Follow up as needed
[2018-02-09 18:10] LABS: HEMATOCRIT 43.2 % (36.0-47.0); HEMOGLOBIN 14.2 g/dL (12.0-15.5); MEAN CORPUSCULAR HEMOGLOBIN 26.1 pg (27.0-33.4); MEAN CORPUSCULAR HGB CONC 32.9 g/dL (32.0-36.0); MEAN CORPUSCULAR VOLUME 80 fl (80-97); PLATELET COUNT 128 10^3/uL (150-450); RED BLOOD COUNT 5.44 10^6/uL (3.72-5.28); RED CELL DISTRIBUTION WIDTH 14.1 % (11.5-14.0); WHITE BLOOD COUNT 4.1 10^3/uL (4.0-10.5)
[2018-02-09] MEDS: NORMAL SALINE 1000 ML 1,000 ML IV PRN ×2 (18:13→19:39)
[2018-02-09 18:21] LABS: ALANINE AMINOTRANSFERASE 870 U/L (9-52); ALBUMIN 4.5 g/dL (3.5-5.0); ALKALINE PHOSPHATASE 59 U/L (38-126); ANION GAP 12 (5-19); ASPARTATE AMINO TRANSFERASE 728 U/L (14-36); BILIRUBIN,DIRECT 0.5 mg/dL (0.0-0.4); BILIRUBIN,TOTAL 1.2 mg/dL (0.2-1.3); BLOOD UREA NITROGEN 27 mg/dL (7-20); CARBON DIOXIDE 29 mmol/L (22-30); CHLORIDE 100 mmol/L (98-107); GLUCOSE 95 mg/dL (75-110); POTASSIUM 4.2 mmol/L (3.6-5.0); SODIUM 141.4 mmol/L (137-145); TOTAL PROTEIN 7.7 g/dL (6.3-8.2)
[2018-02-09 18:23] LABS: ABSOLUTE LYMPHOCYTES# (MANUAL) 1.5 10^3/uL (0.5-4.7); ABSOLUTE MONOCYTES # (MANUAL) 0.9 10^3/uL (0.1-1.4); ABSOLUTE NEUTROPHILS# (MANUAL) 1.6 10^3/uL (1.7-8.2); BASOPHILS % (MANUAL) 0 % (0-2); EOSINOPHILS % (MANUAL) 1 % (0-6); LYMPHOCYTES % (MANUAL) 33 % (13-45); MONOCYTES % (MANUAL) 22 % (3-13); SEGMENTED NEUTROPHILS % (MAN) 40 % (42-78); TOTAL CELLS COUNTED 100
[2018-02-09 18:24] LABS: ANISOCYTOSIS SLIGHT; HYPOCHROMASIA SLIGHT; PLATELET COMMENT DECREASED; TOXIC GRANULATION SLIGHT
[2018-02-09 18:35] LABS: FREE T4 (FREE THYROXINE) 6.93 ng/dL (0.78-2.19)
[2018-02-09 18:41] LABS: FREE T3 > 22.80 pg/mL (2.77-5.27)
[2018-02-09 19:53] LABS: APPEARANCE,URINE SLIGHTLY-CLOUDY; BILIRUBIN,URINE SMALL (NEGATIVE); COLOR,URINE AMBER; GLUCOSE, URINE NEGATIVE (NEGATIVE); KETONES,URINE TRACE mg/dL (NEGATIVE); LEUKOCYTE ESTERASE,URINE NEGATIVE (NEGATIVE); NITRITE,URINE NEGATIVE (NEGATIVE); PROTEIN,URINE 100 mg/dL (NEGATIVE)
[2018-02-09] MEDS ORDERED: NORMAL SALINE 1000 ML 1,000 ML IV ONE (20:13)
--- NOTE | 2018-02-09 22:14 | EKG REPORT ---
SEVERITY:- OTHERWISE NORMAL ECG - SINUS TACHYCARDIA : Confirmed by: Rachele Robertson 09-Feb-2018 22:13:17
[2018-02-10] MEDS ORDERED: ONDANSETRON HCL INJ/PF 4 MG/2 ML SDV IV ONE (05:45)
[2018-02-10] MEDS ORDERED: ONDANSETRON HCL 8 MG TABLET PO PRN (05:48)
[2018-02-10] MEDS ORDERED: NON-FORMULARY UNIT-DOSE MEDICATION PO SCH ×2 (10:00)
[2018-02-10 11:54] VITALS: BP 137/104
[2018-02-11 07:38] LABS: HEPATITIS A AB IGM Negative (Negative); HEPATITIS B CORE AB IGM Negative (Negative); HEPATITS B SURFACE ANTIGEN Negative (Negative)
[2018-02-11 08:49] LABS: HEPATITIS C VIRUS ANTIBODY <0.1 s/co ratio (0.0-0.9)
== END 2018-02-10 12:20 | disposition short-term general hospital (02) ==
LOC: ER 15:42
DX: R53.1 Weakness (principal); R11.0 Nausea; R74.8 Abnormal levels of other serum enzymes; R00.0 Tachycardia, unspecified; E86.0 Dehydration; R11.2 Nausea with vomiting, unspecified; R10.84 Generalized abdominal pain; F17.200 Nicotine dependence, unspecified, uncomplicated; Z21 Asymptomatic human immunodeficiency virus [HIV] infection status
CPT/HCPCS: 93005; 99285; 96361; 96374; 96375; 36415; 87086; 84439; 83690; 85025; 87088; 80053; 81001; 84481; 80074; 71046; 93010; J3490; J2765; J2405; J7030

== ENCOUNTER 2018-07-12 16:54 | Emergency (ER) | payer SELFPAY ==
[2018-07-12] MEDS ORDERED: NORMAL SALINE 1000 ML 1,000 ML IV ONE (18:27)
--- NOTE | 2018-07-12 18:51 | ER Document Report ---
ED Medical Screen (RME) - General Chief Complaint: Chest Pain Stated Complaint: DIFFICULTY BREATHING Time Seen by Provider: 07/12/18 18:22 TRAVEL OUTSIDE OF THE [place] IN LAST 30 DAYS: No - HPI Notes: 07/12/18 18:50 Patient is HIV positive unknown viral load or CD4 count infectious diseases and Railroad coming in for nausea vomiting diarrhea difficulty in swallowing difficulty breathing chest pain. Patient states recently diagnosed Graves' disease patient states no recent travel patient states tachycardia due to her Graves' disease. - Related Data Allergies/Adverse Reactions: No Known Allergies Allergy (Verified 07/12/18 16:57) Past Medical History - Social History Chew tobacco use (# tins/day): No Frequency of alcohol use: Rare Drug Abuse: None - Past Medical History Cardiac Medical History: Reports: Hx Hypertension - Hypertensive only with preeclampsia during her . Denies: Hx Congestive Heart Failure, Hx DVT, Hx Heart Attack, Hx Hypercholesterolemia, Hx Pulmonary Embolism Pulmonary Medical History: Denies: Hx Asthma, Hx COPD Neurological Medical History: Denies: Hx Seizures Endocrine Medical History: Reports: Hx Hypothyroidism. Denies: Hx Diabetes Mellitus Type 1, Hx Diabetes Mellitus Type 2, Hx Hyperthyroidism Renal/ Medical History: Denies: Hx Peritoneal Dialysis GI Medical History: Denies: Hx Cirrhosis, Hx Gastroesophageal Reflux Disease, Hx Hepatitis Musculoskeltal Medical History: Denies Hx Arthritis Psychiatric Medical History: Reports: Hx Depression Infectious Medical History: Reports: Hx HIV. Denies: Hx Hepatitis - Immunizations Immunizations up to date: Yes Hx Diphtheria, Pertussis, Tetanus Vaccination: Yes Review of Systems - Review of Systems Constitutional: See HPI Physical Exam - Vital signs Vitals: Temp Pulse Resp BP Pulse Ox 98.8 F 119 H 24 H 146/87 H 100 07/12/18 17:20 07/12/18 17:20 07/12/18 17:20 07/12/18 17:20 07/12/18 17:20 - General General appearance: Appears well In distress: None - HEENT Head: Normocephalic Eyes: Normal Conjunctiva: Normal Course - Vital Signs Vital signs: Temp Pulse Resp BP Pulse Ox 98.8 F 119 H 24 H 146/87 H 100 07/12/18 17:20 07/12/18 17:20 07/12/18 17:20 07/12/18 17:20 07/12/18 17:20 Doctor's Discharge - Discharge Referrals: KANG MARMOLEJO FNP [Primary Care Provider] - Follow up as needed
[2018-07-12 19:10] LABS: ABSOLUTE LYMPHOCYTES (AUTO) 1.1 10^3/uL (0.5-4.7); ABSOLUTE MONOCYTES (AUTO) 0.4 10^3/uL (0.1-1.4); ABSOLUTE NEUT (AUTO) 1.5 10^3/uL (1.7-8.2); BASOPHILS % (AUTO) 0.1 % (0-2); EOSINOPHILS % (AUTO) 0.6 % (0-6); HEMATOCRIT 37.7 % (36.0-47.0); HEMOGLOBIN 12.6 g/dL (12.0-15.5); LYMPHOCYTES % (AUTO) 35.5 % (13-45); MEAN CORPUSCULAR HEMOGLOBIN 23.7 pg (27.0-33.4); MEAN CORPUSCULAR HGB CONC 33.5 g/dL (32.0-36.0); MEAN CORPUSCULAR VOLUME 71 fl (80-97); MONOCYTES % (AUTO) 13.4 % (3-13); PLATELET COUNT 127 10^3/uL (150-450); RED BLOOD COUNT 5.33 10^6/uL (3.72-5.28); RED CELL DISTRIBUTION WIDTH 13.7 % (11.5-14.0); SEGMENTED NEUTROPHILS % (AUTO) 50.4 % (42-78); TOTAL CELLS COUNTED % (AUTO) 100 %
--- NOTE | 2018-07-12 19:17 | RADIOLOGY REPORT (SQ) ---
EXAM DESCRIPTION: CHEST 2 VIEWS COMPLETED DATE/TIME: 07/12/2018 7:04 pm REASON FOR STUDY: sob COMPARISON: 02/09/2018 EXAM PARAMETERS: NUMBER OF VIEWS: two views TECHNIQUE: Digital Frontal and Lateral radiographic views of the chest acquired. RADIATION DOSE: NA LIMITATIONS: none FINDINGS: LUNGS AND PLEURA: No opacities, masses or pneumothorax. No pleural effusion. MEDIASTINUM AND HILAR STRUCTURES: No masses or contour abnormalities. HEART AND VASCULAR STRUCTURES: Heart normal size. No evidence for failure. BONES: No acute findings. HARDWARE: None in the chest. OTHER: No other significant finding. IMPRESSION: NO ACUTE RADIOGRAPHIC FINDING IN THE CHEST. TECHNICAL DOCUMENTATION: JOB ID: [id number] [employer]- All Rights Reserved Reading location - IP/workstation name: [email or web address]
[2018-07-12 19:35] LABS: ALANINE AMINOTRANSFERASE 57 U/L (9-52); ALBUMIN 3.8 g/dL (3.5-5.0); ALKALINE PHOSPHATASE 129 U/L (38-126); ANION GAP 12 (5-19); ASPARTATE AMINO TRANSFERASE 56 U/L (14-36); BILIRUBIN,DIRECT 0.3 mg/dL (0.0-0.4); BILIRUBIN,TOTAL 0.6 mg/dL (0.2-1.3); BLOOD UREA NITROGEN 14 mg/dL (7-20); CALCIUM 9.7 mg/dL (8.4-10.2); CARBON DIOXIDE 26 mmol/L (22-30); CHLORIDE 105 mmol/L (98-107); GLUCOSE 121 mg/dL (75-110); POTASSIUM 3.7 mmol/L (3.6-5.0); SODIUM 142.8 mmol/L (137-145)
[2018-07-12 19:48] LABS: NT PRO BNP 1530 pg/mL (<125)
[2018-07-12 19:49] LABS: TROPONIN I < 0.012 ng/mL
--- NOTE | 2018-07-12 19:53 | ER Document Report ---
ED General - General Chief Complaint: Chest Pain Stated Complaint: DIFFICULTY BREATHING Time Seen by Provider: 07/12/18 18:22 Notes: Patient is a 27 year old female with a past medical history of HIV and hypothyroidism who presents with 1 week of pleuritic chest discomfort, shortness of breath, fatigue and general weakness. The patient reports that the symptoms started gradually approximately 1 week ago and have been ongoing since that time. She notes that any form of exertion seems to substantially worsen her symptoms of shortness of breath and fatigue. Rest minimally improves her symptoms. She denies any history of similar symptoms in the past. She denies any history of DVT or pulmonary embolus. She has not seen her general doctor regarding today's concerns. She denies any fever, cough, sputum production, syncope, vomiting, or altered mental status. TRAVEL OUTSIDE OF THE [place] IN LAST 30 DAYS: No - Related Data Allergies/Adverse Reactions: No Known Allergies Allergy (Verified 07/12/18 16:57) Past Medical History - General Information source: Patient - Social History Smoking Status: Current Every Day Smoker Chew tobacco use (# tins/day): No Frequency of alcohol use: Rare Drug Abuse: None Lives with: Friend Family History: Reviewed & Not Pertinent Patient has suicidal ideation: No Patient has homicidal ideation: No - Past Medical History Cardiac Medical History: Reports: Hx Hypertension - Hypertensive only with preeclampsia during her . Denies: Hx Congestive Heart Failure, Hx DVT, Hx Heart Attack, Hx Hypercholesterolemia, Hx Pulmonary Embolism Pulmonary Medical History: Denies: Hx Asthma, Hx COPD Neurological Medical History: Denies: Hx Seizures Endocrine Medical History: Reports: Hx Hypothyroidism. Denies: Hx Diabetes Mellitus Type 1, Hx Diabetes Mellitus Type 2, Hx Hyperthyroidism Renal/ Medical History: Denies: Hx Peritoneal Dialysis GI Medical History: Denies: Hx Cirrhosis, Hx Gastroesophageal Reflux Disease, Hx Hepatitis Musculoskeletal Medical History: Denies Hx Arthritis Psychiatric Medical History: Reports: Hx Depression Infectious Medical History: Reports: Hx HIV. Denies: Hx Hepatitis - Immunizations Immunizations up to date: Yes Hx Diphtheria, Pertussis, Tetanus Vaccination: Yes Review of Systems - Review of Systems Notes: Constitutional: Negative for fever. HENT: Negative for sore throat. Eyes: Negative for visual changes. Cardiovascular: Positive for chest pain. Respiratory: Positive for shortness of breath. Gastrointestinal: Negative for abdominal pain, vomiting or diarrhea. Genitourinary: Negative for dysuria. Musculoskeletal: Negative for back pain. Skin: Negative for rash. Neurological: Negative for headaches, weakness or numbness. 10 point ROS negative except as marked above and in HPI. Physical Exam - Vital signs Vitals: Temp Pulse Resp BP Pulse Ox 98.8 F 119 H 24 H 146/87 H 100 07/12/18 17:20 07/12/18 17:20 07/12/18 17:20 07/12/18 17:20 07/12/18 17:20 Interpretation: Tachycardic Notes: PHYSICAL EXAMINATION: GENERAL: Somewhat emaciated but in no acute distress HEAD: Atraumatic, normocephalic. EYES: Pupils equal round and reactive to light, extraocular movements intact, sclera anicteric, conjunctiva are normal. ENT: nares patent, oropharynx clear without exudates. Moderately dry mucous membranes. NECK: Normal range of motion, supple without lymphadenopathy LUNGS: Breath sounds clear to auscultation bilaterally and equal. No wheezes rales or rhonchi. HEART: Regular tachycardia without murmurs ABDOMEN: Soft, nontender, normoactive bowel sounds. No guarding, no rebound. No masses appreciated. EXTREMITIES: Normal range of motion, no pitting or edema. No cyanosis. NEUROLOGICAL: No focal neurological deficits. Moves all extremities spontaneously and on command. PSYCH: Normal mood, normal affect. SKIN: Warm, Dry, normal turgor, no rashes or lesions noted. Course - Re-evaluation Re-evalutation: 07/12/18 19:52 Presentation is most concerning for a possible acute pulmonary embolus given patient's description of pleuritic discomfort, shortness of breath, fatigue, tachycardia, and an underlying risk factor of HIV. Chest x-ray clear without evidence of a pneumothorax or an acute infiltrate. An alternative diagnostic consideration would be that the patient could have undertreated hypothyroidism which could be prompting her tachycardia and sensation of fatigue and shortness of breath although I do not believe that this would typically cause her to have chest discomfort. Her Wells score is 4.5. Will start with a d-dimer to further evaluate, provide IV fluids and reassess the patient. 07/12/18 21:39 CT of the chest was obtained as d-dimer was elevated. CTA is clear without any evidence of an acute pulmonary embolus or any evidence of pulmonary edema or infiltrates. At this point her BNP is noted to be elevated and I am concerned about the possibility of high-output failure in the setting of ongoing tachycardia from hyperthyroidism. I have sent free T4, free T3, TSH, plan to discuss with the patient's manufacturing plant technician. 07/12/18 23:23 Free T3 is still markedly high above our upper limit of normal and TSH is undetectable. I have contacted [facility] and requested a consult with endocrinology. 07/13/18 00:04 I have spoken to the manufacturing plant technician mechatronics technician. I reviewed the patient's vitals, history, exam, and laboratories. He has recommended dose of 30 mg of methimazole here in the emergency department, patient is to be seen in the office in the morning. The patient states that she has consistent difficulty getting transport to [place] but does have methimazole home but again does not know her dose. 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 I do not however believe the patient requires emergent hospitalization at this point as she is currently asymptomatic, heart rate has improved significantly after receiving propranolol. She is not hypertensive. No hypoxemia, tachypnea. No evidence of congestive failure. At this time will discharge with return precautions and follow-up recommendations. Verbal discharge instructions given a the bedside and opportunity for questions given. Medication warnings reviewed. Patient is in agreement with this plan and has verbalized understanding of return precautions and the need for primary care follow-up in the next 24-72 hours. 07/13/18 03:36 Unfortunately we do not have either methimazole or propylthiouracil here in the emergency department or in the entire hospital to administer this patient prior to discharge. I have therefore prescribed her a total of 30 mg and asked her to fill this at a local pharmacy and take it soon as she can. - Vital Signs Vital signs: Temp Pulse Resp BP Pulse Ox 98.9 F 107 H 16 144/95 H 100 07/13/18 00:55 07/13/18 00:55 07/13/18 00:55 07/13/18 00:55 07/13/18 00:55 - Laboratory Result Diagrams: 07/12/18 18:50 07/12/18 18:50 Laboratory results interpreted by me: 08/23/18 08/23/18 08/23/18 18:50 18:50 18:50 WBC 3.0 L RBC 5.33 H MCV 71 L MCH 23.7 L Plt Count 127 L Monocytes % 13.4 H Absolute Neutrophils 1.5 L D-Dimer Creatinine 0.36 L Glucose 121 H AST 56 H ALT 57 H Alkaline Phosphatase 129 H NT-Pro-B Natriuret Pep 1530 H TSH Free T4 Free T3 pg/mL 07/12/18 07/12/18 18:50 18:50 WBC RBC MCV MCH Plt Count Monocytes % Absolute Neutrophils D-Dimer 0.59 H Creatinine Glucose AST ALT Alkaline Phosphatase NT-Pro-B Natriuret Pep TSH < 0.01 L Free T4 5.88 H Free T3 pg/mL > 22.80 H - Diagnostic Test Radiology reviewed: Image reviewed, Reports reviewed Radiology results interpreted by me: 07/12/18 21:41 Chest x-ray: No acute infiltrate or pneumothorax Discharge - Discharge Clinical Impression: Hyperthyroidism, Tachycardia Condition: Stable Disposition: HOME, SELF-CARE Additional Instructions: Your thyroid studies are still very abnormal today. They have been included in your paperwork so that you can show them to your manufacturing plant technician. As we discussed today I did discussed your case with the manufacturing plant technician on-call at [facility], who states that you need to be seen in the office tomorrow. Your being started on a medicine called propranolol to lower your heart rate and help with your hypothyroidism. You need to continue taking the methimazole that she currently have at home exactly as prescribed. It is urgent that you get to the appointment tomorrow as your labs and symptoms to suggest that you may be developing some degree of cardiac failure. Please return to the emergency department immediately if you have worsening of your current symptoms, vomiting, fever greater than 100.4F, pass out, or have any other symptoms that are worrisome to you. Prescriptions: Methimazole [Northyx] 15 mg PO ONCE PRN #2 tablet PRN Reason: Propranolol HCl 20 mg PO BID #30 tablet Forms: Return to Work Referrals: KANG MARMOLEJO FNP [NO LOCAL MD] - Follow up as needed
--- NOTE | 2018-07-12 20:53 | RADIOLOGY REPORT (SQ) ---
EXAM DESCRIPTION: CTA CHEST COMPLETED DATE/TIME: 07/12/2018 8:41 pm REASON FOR STUDY: eval pe/ cp / sob COMPARISON: CT 10/11/2016 chest x-ray 07/12/2018 TECHNIQUE: CT scan of the chest performed using helical scanning technique with dynamic intravenous contrast injection. Images reviewed with lung, soft tissue and bone windows. Reconstructed coronal and sagittal MPR images reviewed. Additional 3 dimensional post-processing performed to develop Maximal Intensity Projection images (IN P). All images stored on PACS. All CT scanners at this facility use dose modulation, iterative reconstruction, and/or weight based d osing when appropriate to reduce radiation dose to as low as reasonably achievable (ALARA). [facility]: Dose Right [facility]: CareDose [facility]: Dose Right [facility]: Teradose 4D [facility]: Agorique CONTRAST TYPE AND DOSE: 50 mL Omnipaque 350- low osmolar. Contrast bolus adequate for pulmonary arteries and aorta. RENAL FUNCTION: BUN 14 creatinine 0.36 RADIATION DOSE: . LIMITATIONS: None. FINDINGS: LUNGS AND PLEURA: No masses, infiltrates, or pneumothorax. No pleural effusions or pleura l calcifications. AORTA AND GREAT VESSELS: No aneurysm. No dissection. HEART: No pericardial effusion. No significant coronary artery calcifications. PULMONARY ARTERIES: No emboli visualized in the main pulmonary arteries or the segmental branches. HILAR AND MEDIASTINAL STRUCTURES: No identified masses or abnormal nodes. HARDWARE: None in the chest. UPPER ABDOMEN: No significant findings. Limited exam. THYROID AND OTHER SOFT TISSUES: No masses. No adenopathy. BONES: No acute or significant finding. 3D MIPS: Confirm above findings. OTHER: No other significant finding. IMPRESSION: NORMAL CTA OF THE CHEST. NO PULMONARY EMBOLI. COMMENT: Quality ID # [id number]: Final reports with documentation of one or more dose reduction techniques (e.g., Automated exposure control, adjustment of the mA and/or kV according to patient size, use of iterative reconstruction technique) TECHNICAL DOCUMENTATION: JOB ID: [id number] [employer]- All Rights Reserved Reading location - IP/workstation name: [email or web address]
[2018-07-12] MEDS ORDERED: PROPRANOLOL HCL 20 MG TABLET PO ONE (22:34)
[2018-07-12 22:48] LABS: FREE T4 (FREE THYROXINE) 5.88 ng/dL (0.78-2.19)
[2018-07-12 22:57] LABS: FREE T3 > 22.80 pg/mL (2.77-5.27)
[2018-07-12 23:03] LABS: THYROID STIMULATING HORMONE < 0.01 uIU/mL (0.47-4.68)
[2018-07-12] MEDS ORDERED: METHIMAZOLE 5 MG TABLET PO ONE (23:38)
[2018-07-13] MEDS ORDERED: PROPYLTHIOURACIL 50 MG TABLET PO ONE (00:40)
[2018-07-13 00:56] VITALS: BP 144/95
--- NOTE | 2018-07-13 09:03 | EKG REPORT ---
SEVERITY:- OTHERWISE NORMAL ECG - SINUS TACHYCARDIA : Confirmed by: Rachele Robertson 13-Jul-2018 09:02:28
== END 2018-07-13 00:47 | disposition home or self-care (01) ==
LOC: ER 16:54
DX: E05.90 Thyrotoxicosis, unspecified without thyrotoxic crisis or storm (principal); R00.0 Tachycardia, unspecified; R79.1 Abnormal coagulation profile; R07.81 Pleurodynia; R06.02 Shortness of breath; R53.83 Other fatigue; R53.1 Weakness; F17.200 Nicotine dependence, unspecified, uncomplicated; Z21 Asymptomatic human immunodeficiency virus [HIV] infection status
CPT/HCPCS: 93005; 99285; 96360; 36415; 84439; 83690; 84443; 85025; 80053; 84484; 84481; 85379; 83880; 71046; 71275; 93010; J3490; J7030

== ENCOUNTER 2019-02-18 16:10 | Emergency (ER) | payer SELFPAY ==
[2019-02-18 16:38] VITALS: BP 145/87
[2019-02-18] MEDS ORDERED: HYDROCODONE/ACETAMINOPHEN 5-325 MG TABLET PO ONE (17:09)
[2019-02-18] MEDS ORDERED: LIDOCAINE 2% VISCOUS SOLN 20 ML UDCUP PO ONE (17:09)
--- NOTE | 2019-02-18 17:12 | ER Document Report ---
ED Oral Problem - General Chief Complaint: Toothache Stated Complaint: JAW PAIN Time Seen by Provider: 02/18/19 16:48 Primary Care Provider: RYLAND THAYER [Primary Care Provider] - Follow up as needed Mode of Arrival: Ambulatory Information source: Patient Notes: 28-year-old female presents to ED for complaint of left lower jaw pain with multiple cavities to the left lower jaw. She states the pain is been for about a week. She states she does not have insurance and has not been to a dentist in a while. She states she goes to the clinic in [place] for her HIV medications but they do not treat dental problems. She states she also has been diagnosed with Graves' disease and takes medications for that as well. Patient is alert oriented respirations regular and unlabored speaking in full sentences walks with a even steady gait. TRAVEL OUTSIDE OF THE [place] IN LAST 30 DAYS: No - HPI Patient complains to provider of: Swelling of jaw, Toothache. No: Swelling of face Onset: Last week Onset: Gradual Quality of pain: Sharp, Throbbing Severity: Moderate Pain Level: 4 Associated symptoms: Toothache Worsened by: Cold Relieved by: Nothing Similar symptoms previously: Yes Recently seen / treated by doctor/dentist: Yes - Related Data Allergies/Adverse Reactions: No Known Allergies Allergy (Verified 07/12/18 16:57) Past Medical History - General Information source: Patient - Social History Smoking Status: Current Every Day Smoker Cigarette use (# per day): Yes - Half pack a day Chew tobacco use (# tins/day): No - 4 minutes Smoking Education Provided: Yes Frequency of alcohol use: None Drug Abuse: None Lives with: Family Family History: Reviewed & Not Pertinent Patient has suicidal ideation: No Patient has homicidal ideation: No - Past Medical History Cardiac Medical History: Reports: Hx Hypertension - Hypertensive only with preeclampsia during her . Pulmonary Medical History: Reports: None EENT Medical History: Reports: None Neurological Medical History: Reports: None Endocrine Medical History: Reports: Hx Hypothyroidism Renal/ Medical History: Reports: Other - Eclampsia Malignancy Medical History: Reports: None GI Medical History: Reports: None Musculoskeletal Medical History: Reports None Skin Medical History: Reports None Psychiatric Medical History: Reports: Hx Depression Traumatic Medical History: Reports: None Infectious Medical History: Reports: Hx HIV Surgical Hx: Negative Past Surgical History: Reports: None - Immunizations Immunizations up to date: Yes Hx Diphtheria, Pertussis, Tetanus Vaccination: Yes Review of Systems - Review of Systems Constitutional: No symptoms reported EENT: Mouth pain, Dental problem Cardiovascular: No symptoms reported Respiratory: No symptoms reported Gastrointestinal: No symptoms reported Genitourinary: No symptoms reported Female Genitourinary: No symptoms reported Musculoskeletal: No symptoms reported Skin: No symptoms reported Hematologic/Lymphatic: No symptoms reported Neurological/Psychological: No symptoms reported -: Yes All other systems reviewed and negative Physical Exam - Vital signs Vitals: Temp Pulse Resp BP Pulse Ox 98.9 F 117 H 18 145/87 H 97 02/18/19 16:36 02/18/19 16:36 02/18/19 16:36 02/18/19 16:36 02/18/19 16:36 Interpretation: Normal - General General appearance: Appears well, Alert - HEENT Head: Normocephalic, Atraumatic Eyes: Normal Pupils: PERRL Ears: Normal External canal: Normal Tympanic membrane: Normal Sinus: Normal Nasal: Normal Mouth/Lips: Caries Teeth diagram: 1 - Mild redness and swelling to the gums multiple cavities no actual swelling noted to the face no redness to the face Pharynx: Normal Neck: Normal - Respiratory Respiratory status: No respiratory distress Chest status: Nontender Breath sounds: Normal Chest palpation: Normal - Cardiovascular Rhythm: Regular Heart sounds: Normal auscultation Murmur: No - Abdominal Inspection: Normal Distension: No distension Bowel sounds: Normal Tenderness: Nontender Organomegaly: No organomegaly - Back Back: Normal, Nontender - Extremities General upper extremity: Normal inspection, Nontender, Normal color, Normal ROM, Normal temperature General lower extremity: Normal inspection, Nontender, Normal color, Normal ROM, Normal temperature, Normal weight bearing. No: Shakira's sign - Neurological Neuro grossly intact: Yes Cognition: Normal Orientation: AAOx4 Tenmile Coma Scale Eye Opening: Spontaneous Tenmile Coma Scale Verbal: Oriented Tenmile Coma Scale Motor: Obeys Commands Tenmile Coma Scale Total: 15 Speech: Normal Motor strength normal: LUE, RUE, LLE, RLE Sensory: Normal - Psychological Associated symptoms: Normal affect, Normal mood - Skin Skin Temperature: Warm Skin Moisture: Dry Skin Color: Normal Course - Re-evaluation Re-evalutation: 02/18/19 17:15 Presentation is most consistent with likely an infected tooth. Airway is patent. Vitals within normal limits. Patient is able swallow without any difficulty. There is no significant facial swelling. No evidence of Ronn angina, apical abscess, or airway obstruction. Patient will be started on antibiotics. I've instructed to follow-up with dentistry as earliest ability for definitive management. At this time will discharge with return precautions and follow-up recommendations. Verbal discharge instructions given a the bedside and opportunity for questions given. Medication warnings reviewed. Patient is in agreement with this plan and has verbalized understanding of return precautions and the need for primary care follow-up in the next 24-72 hours. - Vital Signs Vital signs: Temp Pulse Resp BP Pulse Ox 98.9 F 117 H 18 145/87 H 97 02/18/19 16:36 02/18/19 16:36 02/18/19 16:36 02/18/19 16:36 02/18/19 16:36 Discharge - Discharge Clinical Impression: Pain due to dental caries Condition: Stable Disposition: HOME, SELF-CARE Additional Instructions: TOOTHACHE: Your pain is due to dental decay. The tooth must be repaired in order for you to feel better. You will, therefore, be referred to a dentist. We do not have dentists on the staff at [facility]. Severe swelling or drainage around a tooth usually means a dental abscess. This also requires evaluation and treatment by the dentist, but antibiotics may be prescribed while awaiting dental treatment. You should be rechecked immediately if you develop major swelling of the face, increasing pain, a lump in the jaw or gums, headache, difficulty swallowing, or fever. ORAL NARCOTIC MEDICATION: You have been given a [place] for pain control. This medication is a narcotic. It's best taken with food, as nausea can result if taken on an empty stomach. Don't operate machinery or drive within six hours of taking this medication. Do not combine this medicine with alcohol, or with any medication which can cause sedation (such as cold tablets or sleeping pills) unless you get permission from the physician. Narcotics tend to cause constipation. If possible, drink plenty of fluids and eat a diet high in fiber and fruits. Please be aware that prescription narcotics also have the potential for abuse. People become addicted to these medications because of the general sense of wellbeing that they induce. This feeling along with a significant reduction in tension, anxiety, and aggression provides a stimulating seductive quality to these drugs. Once your pain is under control, we encourage you to discard your unused narcotics. CLINDAMYCIN: You have been given a prescription for the antibiotic clindamycin. It is often prescribed for infections in the mouth, such as dental infections or abscesses, and for skin infections due to MRSA. It's important that you take all the medication, unless instructed otherwise by your physician. Failure to complete the entire course can result in relapse of your condition. Common side effects of antibiotics include nausea, intestinal cramping, or diarrhea. Women may develop vaginal yeast infections, and babies can get yeast (thrush) in the mouth following the use of antibiotics. Contact your physician if you develop significant side effects from this medication. Allergy to this antibiotic can result in hives, wheezing, faintness, or itching. If symptoms of allergy occur, stop the medication and call the doctor. FOLLOW-UP CARE: You have been referred for follow-up care to the dentists listed below. Call the dentists office for an appointment as you were instructed or within the next two days. If you experience worsening or a significant change in your symptoms, notify the physician immediately or return to the Emergency Department at any time for re-evaluation. [facility] [address] [place], [place] [facility] [address] [place] [address] [facility] [address] [facility] [address] [facility] Emergency Department [employer] [facility] [address] [facility]. [email or web address] [address] [place] [address] Monday- 8:00am to 5:00 pm Will see patients from other [facility]. Charges based on income and family size and accepts Medicare, Medicaid, and Insurances Will pull molars [facility], [facility]. [id number] Hours of Operation 8:00 am - 4:30 pm weekdays The following dental offices accept Medicaid: [facility] Dr. Abbott Dr. Gamble Dr. Chong Dr. Jones Mayco [place], [place], and Amarjit oral surgery Dr. Cardoza ([place]) Dr. Douglas ([place]) [facility] Drs. Tyson and Rashard ([place]) Dr. Cantu ([place]) [facility] Dr. Brown ([place]) Drs. Garcia and ([place]) Medicaid Care Line Prescriptions: Clindamycin HCl 300 mg PO Q6 #28 capsule Forms: Elevated Blood Pressure, Smoking Cessation Education Referrals: LOCALMD,NO [Primary Care Provider] - Follow up as needed
== END 2019-02-18 17:31 | disposition home or self-care (01) ==
LOC: ER 16:10
DX: K02.9 Dental caries, unspecified (principal); R68.84 Jaw pain; B20 Human immunodeficiency virus [HIV] disease; F17.210 Nicotine dependence, cigarettes, uncomplicated
CPT/HCPCS: 99406; 99282; J3490

== ENCOUNTER 2019-07-13 22:20 | Emergency (ER) | payer MEDICAID, OTHER ==
[2019-07-14] MEDS ORDERED: NORMAL SALINE 1000 ML 1,000 ML IV ONE (01:01)
--- NOTE | 2019-07-14 01:03 | ER Document Report ---
ED General - General Chief Complaint: Epigastric Pain Stated Complaint: ABDOMINAL PAIN Time Seen by Provider: 07/14/19 00:49 Notes: Patient is a 28-year-old female that comes emergency department for chief complaint of sharp pains from the top of her abdomen up towards her throat. She states that she feels like she cannot eat because of it. She reports nausea but she denies vomiting. She reports generalized abdominal pain. She denies dy suria, vaginal bleeding or discharge. She has some cough, she states she has felt like she has had fevers but none are recorded. 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 She states she has not had her CD4 counts checked in a while. She also went for. Without taking her HIV medications. She states she has not had anything to eat for the past 2 days because she felt like she could not. She smokes, she denies alcohol, she denies any recreational drugs. She denies medical history otherwise except for Graves' disease. TRAVEL OUTSIDE OF THE [place] IN LAST 30 DAYS: No - Related Data Allergies/Adverse Reactions: No Known Allergies Allergy (Verified 07/12/18 16:57) Past Medical History - General Information source: Patient - Social History Smoking Status: Never Smoker Drug Abuse: None Lives with: Alone Family History: Reviewed & Not Pertinent - Past Medical History Cardiac Medical History: Reports: Hx Hypertension - Hypertensive only with preeclampsia during her . Denies: Hx Congestive Heart Failure, Hx DVT, Hx Heart Attack, Hx Hypercholesterolemia, Hx Pulmonary Embolism Pulmonary Medical History: Denies: Hx Asthma, Hx COPD Neurological Medical History: Denies: Hx Seizures Endocrine Medical History: Reports: Hx Hypothyroidism. Denies: Hx Diabetes Mellitus Type 1, Hx Diabetes Mellitus Type 2, Hx Hyperthyroidism Renal/ Medical History: Denies: Hx Peritoneal Dialysis GI Medical History: Denies: Hx Cirrhosis, Hx Gastroesophageal Reflux Disease, Hx Hepatitis Musculoskeletal Medical History: Denies Hx Arthritis Psychiatric Medical History: Reports: Hx Depression Infectious Medical History: Reports: Hx HIV. Denies: Hx Hepatitis - Immunizations Immunizations up to date: Yes Hx Diphtheria, Pertussis, Tetanus Vaccination: Yes Review of Systems - Review of Systems Constitutional: No symptoms reported EENT: See HPI Cardiovascular: See HPI Respiratory: See HPI Gastrointestinal: See HPI Genitourinary: No symptoms reported Female Genitourinary: No symptoms reported Musculoskeletal: No symptoms reported Skin: No symptoms reported Hematologic/Lymphatic: No symptoms reported Neurological/Psychological: No symptoms reported Physical Exam - Vital signs Vitals: Temp Pulse Resp BP Pulse Ox 98.2 F 132 H 18 146/103 H 100 07/13/19 22:33 07/13/19 22:33 07/13/19 22:33 07/13/19 22:33 07/13/19 22:33 - Notes Notes: GENERAL: Frail but alert and otherwise well-appearing HEAD: Normocephalic, atraumatic. EYES: Pupils equal, round, and reactive to light. Extraocular movements intact. ENT: Oral mucosa dry, tongue midline. Oropharynx unremarkable. Airway patent. LUNGS: Clear to auscultation bilaterally, no wheezes, rales, or rhonchi. No resp iratory distress. HEART: Tachycardia, normal rhythm, no murmur ABDOMEN: Soft, non-tender. Non-distended. GENITOURINARY: Deferred EXTREMITIES: Moves all 4 extremities spontaneously. No edema, normal radial and dorsalis pedis pulses bilaterally. No cyanosis. BACK: no cervical, thoracic, lumbar midline tenderness. No saddle anesthesia, normal distal neurovascular exam. Moves all extremities in full range of motion. NEUROLOGICAL: Alert and oriented x3. Normal speech. Cranial nerves II through XII grossly intact. PSYCH: Normal affect, normal mood. SKIN: Warm, dry, normal turgor. No rashes or lesions noted. Course - Re-evaluation Re-evalutation: Patient is frail but she is not ill-appearing on my evaluation. Her abdomen is actually quite benign. She is telling me that when she swallows sometimes it feels like it will get stuck in it also feels uncomfortable. I am concerned because of odynophagia in a patient with HIV who has not been taking her medications as prescribed. There is mild leukopenia, nonspecific. Imaging unremarkable, lipase unremarkable, chest x-ray unremarkable. Urinalysis unremarkable. Patient was given a GI cocktail, this did not help her symptoms significantly. Symptoms did not resolve. Discussed with patient. Discussed patient with Dr. Sanchez. Patient will be treated for suspected esophagitis in the setting of HIV with missed treatments, she will be given initial loading dose of Diflucan and will be placed on this at home with close follow-up with her primary care. Patient instructed not to miss her follow-up and to make sure she takes her HIV medications. She is also instructed to return if she worsens in any way. Patient states understanding and agreement. Patient's heart rate is improved but she is still tachycardic at discharge, heart rate 116 at bedside. However patient states this is baseline, I did look back and patient is always tachycardic for the most part. Patient states she feels fine, no current complaints, requesting discharge. Stable at time of discharge. - Vital Signs Vital signs: Temp Pulse Resp BP Pulse Ox 99.9 F 132 H 23 H 160/108 H 96 07/14/19 06:01 07/13/19 22:33 07/14/19 05:01 07/14/19 05:00 07/14/19 05:01 - Laboratory Result Diagrams: 07/14/19 01:11 07/14/19 01:11 Laboratory results interpreted by me: 07/14/19 07/14/19 07/14/19 01:11 01:11 01:54 WBC 2.9 L Hgb 11.4 L Hct 34.1 L MCV 72 L MCH 24.1 L RDW 14.1 H Plt Count 79 L [place] % (Auto) 17.5 H Chloride 108 H Creatinine 0.42 L AST 43 H Alkaline Phosphatase 162 H Urine Protein 100 H Urine Blood SMALL H Urine Urobilinogen 2.0 H Discharge - Discharge Clinical Impression: Odynophagia, Upper abdominal pain HIV (human immunodeficiency virus infection) Qualifiers: HIV symptom status: unspecified Qualified Code(s): B20 - Human immunodeficiency virus [HIV] disease Condition: Stable Disposition: HOME, SELF-CARE Additional Instructions: Your work-up does not show any concerning findings at this time. Your symptoms are concerning for Sarai of the esophagus causing inflammation (esophagitis from Sarai) Take the fluconazole as prescribed, take the Phenergan if needed for nausea, follow-up closely with your primary care for additional evaluation including probable endoscopy referral. Return if you worsen including severe pain, inability to swallow, vomiting, fever, difficulty breathing, or any other concerning symptoms. Prescriptions: Fluconazole [Diflucan] 200 mg PO DAILY 7 Days #7 tablet Promethazine HCl [Phenergan 25 mg Tablet] 0.5 - 1 tab PO Q6H PRN #12 tablet PRN Reason:
[2019-07-14] MEDS ORDERED: ONDANSETRON HCL INJ/PF 4 MG/2 ML SDV IV ONE (01:04)
[2019-07-14] MEDS ORDERED: MORPHINE SULFATE 10 MG/ML INJ IV ONE (01:04)
[2019-07-14 01:41] LABS: ABSOLUTE LYMPHOCYTES (AUTO) 0.6 10^3/uL (0.5-4.7); ABSOLUTE MONOCYTES (AUTO) 0.5 10^3/uL (0.1-1.4); ABSOLUTE NEUT (AUTO) 1.8 10^3/uL (1.7-8.2); BASOPHILS % (AUTO) 0.5 % (0-2); EOSINOPHILS % (AUTO) 1.2 % (0-6); HEMATOCRIT 34.1 % (36.0-47.0); HEMOGLOBIN 11.4 g/dL (12.0-15.5); LYMPHOCYTES % (AUTO) 19.4 % (13-45); MEAN CORPUSCULAR HEMOGLOBIN 24.1 pg (27.0-33.4); MEAN CORPUSCULAR HGB CONC 33.5 g/dL (32.0-36.0); MEAN CORPUSCULAR VOLUME 72 fl (80-97); MONOCYTES % (AUTO) 17.5 % (3-13); RED BLOOD COUNT 4.74 10^6/uL (3.72-5.28); RED CELL DISTRIBUTION WIDTH 14.1 % (11.5-14.0); SEGMENTED NEUTROPHILS % (AUTO) 61.4 % (42-78); TOTAL CELLS COUNTED % (AUTO) 100 %; WHITE BLOOD COUNT 2.9 10^3/uL (4.0-10.5)
[2019-07-14 01:56] LABS: ALBUMIN 3.8 g/dL (3.5-5.0); ALKALINE PHOSPHATASE 162 U/L (38-126); ANION GAP 9 (5-19); ASPARTATE AMINO TRANSFERASE 43 U/L (14-36); BLOOD UREA NITROGEN 20 mg/dL (7-20); CALCIUM 9.4 mg/dL (8.4-10.2); CARBON DIOXIDE 24 mmol/L (22-30); CHLORIDE 108 mmol/L (98-107); GLUCOSE 83 mg/dL (75-110); POTASSIUM 3.6 mmol/L (3.6-5.0)
[2019-07-14 01:57] LABS: BILIRUBIN,DIRECT 0.4 mg/dL (0.0-0.4); BILIRUBIN,TOTAL 0.7 mg/dL (0.2-1.3); TOTAL PROTEIN 7.4 g/dL (6.3-8.2)
[2019-07-14 02:00] LABS: PLATELET COUNT 79 10^3/uL (150-450)
--- NOTE | 2019-07-14 02:02 | RADIOLOGY REPORT (SQ) ---
CLINICAL HISTORY: chest pain, cough, HIV COMPARISON: October 12, 2016. TECHNIQUE: XR CHEST 2 VIEWS 07/14/2019 12:59 AM CDT FINDINGS: Cardiac silhouette is normal in size. Lungs are clear without consolidation, atelectasis, mass or edema. There is no pleural effusion. There is no pneumothorax. There are no acute osseous findings. IMPRESSION: Clear lungs.
[2019-07-14] MEDS ORDERED: MAG HYDROX/AL HYDROX/SIMETH SUSP 30 ML UDCUP PO ONE (02:34)
[2019-07-14] MEDS ORDERED: METOCLOPRAMIDE HCL ORAL SOLN 10 MG/10 ML UDCUP PO ONE (02:34)
[2019-07-14] MEDS ORDERED: LIDOCAINE 2% VISCOUS SOLN 20 ML UDCUP PO ONE (02:34)
[2019-07-14] MEDS ORDERED: FLUCONAZOLE 100 MG TABLET PO ONE (03:27)
[2019-07-14] MEDS ORDERED: NORMAL SALINE 500 ML IV ONE (03:39)
[2019-07-14 04:44] LABS: APPEARANCE,URINE SLIGHTLY-CLOUDY; BILIRUBIN,URINE NEGATIVE (NEGATIVE); COLOR,URINE AMBER; GLUCOSE, URINE NEGATIVE (NEGATIVE); KETONES,URINE NEGATIVE (NEGATIVE); LEUKOCYTE ESTERASE,URINE NEGATIVE (NEGATIVE); NITRITE,URINE NEGATIVE (NEGATIVE); PROTEIN,URINE 100 mg/dL (NEGATIVE); URINE SPECIFIC GRAVITY 1.024
[2019-07-14] MEDS ORDERED: HYDROCODONE/ACETAMINOPHEN 5-325 MG (6 TAB/ER DISP) PO PRN (05:28)
[2019-07-14] MEDS ORDERED: ONDANSETRON ODT 4 MG TAB (6 TAB/ER DISP) PO PRN (05:28)
[2019-07-14 05:52] VITALS: BP 160/108
--- NOTE | 2019-07-14 09:32 | EKG REPORT ---
SEVERITY:- ABNORMAL ECG - SINUS TACHYCARDIA LEFT ATRIAL ABNORMALITY PROBABLE LEFT VENTRICULAR HYPERTROPHY : Confirmed by: Sherita Luther MD 14-Jul-2019 09:31:39
== END 2019-07-14 06:02 | disposition home or self-care (01) ==
LOC: ER 22:20
DX: R13.10 Dysphagia, unspecified (principal); R10.13 Epigastric pain; R11.0 Nausea; B20 Human immunodeficiency virus [HIV] disease
CPT/HCPCS: 93005; 36415; 83690; 84703; 85025; 80053; 81001; 71046; 93010; J3490; J2270; J2405; J7030; J7040; 96361; 96374; 96375; 99284

== ENCOUNTER 2019-07-18 18:25 | Emergency (ER) | payer MEDICAID ==
[2019-07-18] MEDS ORDERED: ONDANSETRON HCL INJ/PF 4 MG/2 ML SDV IV ONE (18:57)
[2019-07-18] MEDS ORDERED: NORMAL SALINE 1000 ML 1,000 ML IV ONE (18:57)
--- NOTE | 2019-07-18 18:59 | ER Document Report ---
ED Medical Screen (RME) - General Chief Complaint: Weakness Stated Complaint: WEAKNESS Time Seen by Provider: 07/18/19 18:51 Mode of Arrival: Ambulatory Information source: Patient Notes: Patient presents complaining of inability to eat. Patient states that she has not attempted to eat for the past week due to anticipated nausea and vomiting with eating. Patient states that she has not vomited any but feels like she would vomit if she ate. Patient states she was here last week for the same complaint. Patient complains of feeling weak. Patient states she has had the symptoms for the past 2 weeks. hx: HIV I have greeted and performed a rapid initial assessment of this patient. A comprehensive ED assessment and evaluation of the patient, analysis of test results and completion of the medical decision making process will be conducted by additional ED providers. TRAVEL OUTSIDE OF THE [place] IN LAST 30 DAYS: No - Related Data Allergies/Adverse Reactions: No Known Allergies Allergy (Verified 07/18/19 18:25) Past Medical History - Past Medical History Cardiac Medical History: Reports: Hx Hypertension - Hypertensive only with preeclampsia during her . Denies: Hx Congestive Heart Failure, Hx DVT, Hx Heart Attack, Hx Hypercholesterolemia, Hx Pulmonary Embolism Pulmonary Medical History: Denies: Hx Asthma, Hx COPD Neurological Medical History: Denies: Hx Seizures Endocrine Medical History: Reports: Hx Hypothyroidism. Denies: Hx Diabetes Mellitus Type 1, Hx Diabetes Mellitus Type 2, Hx Hyperthyroidism Renal/ Medical History: Denies: Hx Peritoneal Dialysis GI Medical History: Denies: Hx Cirrhosis, Hx Gastroesophageal Reflux Disease, Hx Hepatitis Musculoskeltal Medical History: Denies Hx Arthritis Psychiatric Medical History: Reports: Hx Depression Infectious Medical History: Reports: Hx HIV. Denies: Hx Hepatitis - Immunizations Immunizations up to date: Yes Hx Diphtheria, Pertussis, Tetanus Vaccination: Yes Physical Exam - Vital signs Vitals: Temp Pulse Resp BP Pulse Ox 99.1 F 131 H 18 136/98 H 97 07/18/19 18:30 07/18/19 18:30 07/18/19 18:30 07/18/19 18:30 07/18/19 18:30 - Cardiovascular Rhythm: Tachycardia Heart sounds: S1 appreciated, S2 appreciated - Abdominal Tenderness: Tender - Epigastric tenderness Course - Vital Signs Vital signs: Temp Pulse Resp BP Pulse Ox 99.1 F 131 H 18 136/98 H 97 07/18/19 18:30 07/18/19 18:30 07/18/19 18:30 07/18/19 18:30 07/18/19 18:30
--- NOTE | 2019-07-18 19:42 | ER Document Report ---
ED General - General Chief Complaint: Weakness Stated Complaint: WEAKNESS Time Seen by Provider: 07/18/19 18:51 Mode of Arrival: Ambulatory Notes: Patient is a 28-year-old female with history of HIV on antiretroviral therapy that presents to the emergency department for chief complaint of epigastric and esophageal pain. Patient states that for a few weeks she has been having constant pain, particularly with swallowing, to the point that she is afraid to eat or drink, due to the pain. She was seen in in the emergency department about a week ago, and was prescribed Diflucan, for concern of possible candidal esophagitis, per the notes, the patient states she has not been taking this medication, nor has she been able to take her antiretroviral treatments. She does smoke, denies alcohol use. Denies history of ulcer disease. She is not had any vomiting, denies having any nausea, she also denies having any dysuria, hematuria, fevers, chills, night sweats. She currently rates her pain as a 6 out of 10 describes as burning sensation, in the throat and esophagus. Past Medical History: HIV Past Surgical History: EGD Social History: Admits to smoking, denies alcohol or illicit drug use. Family History: Reviewed and noncontributory for presenting illness Allergies: Reviewed, see documented allergy list. REVIEW OF SYSTEMS: Other than noted above, the 12 point review of systems was reviewed with the angie taylor and were negative, all pertinent findings are included in the HPI. PHYSICAL EXAMINATION: Vital signs reviewed, nursing noted reviewed. GENERAL: Frail-appearing female, no acute distress, but does appear uncomfortable. HEAD: Atraumatic, normocephalic. EYES: Eyes appear normal, extraocular movements intact, sclera anicteric, conjunctiva are normal. ENT: nares patent, oropharynx clear without exudates. Moist mucous membranes. On the patient's tongue, she does have white plaque, consistent with oral thrush. NECK: Normal range of motion, supple without lymphadenopathy LUNGS: Breath sounds clear to auscultation bilaterally and equal. No wheezes rales or rhonchi. HEART: Heart rate tachycardic, regular rhythm, no audible murmur. ABDOMEN: Soft, mild epigastric tenderness to palpation, normoactive bowel sounds. No rebound, guarding, or rigidity. No masses appreciated. EXTREMITIES: Nontender, good range of motion, no pitting or edema. NEUROLOGICAL: No focal neurological deficits. Moves all extremities spontaneously Motor and sensory grossly intact on exam. PSYCH: Normal mood, normal affect. SKIN: Warm, Dry, normal turgor, no rashes or lesions noted on exposed skin TRAVEL OUTSIDE OF THE [place] IN LAST 30 DAYS: No - Related Data Allergies/Adverse Reactions: No Known Allergies Allergy (Verified 07/18/19 18:25) Past Medical History - General Information source: Patient - Social History Smoking Status: Current Every Day Smoker Family History: Reviewed & Not Pertinent Patient has suicidal ideation: No Patient has homicidal ideation: No - Past Medical History Cardiac Medical History: Reports: Hx Hypertension - Hypertensive only with preeclampsia during her . Denies: Hx Congestive Heart Failure, Hx DVT, Hx Heart Attack, Hx Hypercholesterolemia, Hx Pulmonary Embolism Pulmonary Medical History: Denies: Hx Asthma, Hx COPD Neurological Medical History: Denies: Hx Seizures Endocrine Medical History: Reports: Hx Hypothyroidism. Denies: Hx Diabetes Mellitus Type 1, Hx Diabetes Mellitus Type 2, Hx Hyperthyroidism Renal/ Medical History: Denies: Hx Peritoneal Dialysis GI Medical History: Denies: Hx Cirrhosis, Hx Gastroesophageal Reflux Disease, Hx Hepatitis Musculoskeletal Medical History: Denies Hx Arthritis Psychiatric Medical History: Reports: Hx Depression Infectious Medical History: Reports: Hx HIV. Denies: Hx Hepatitis - Immunizations Immunizations up to date: Yes Hx Diphtheria, Pertussis, Tetanus Vaccination: Yes Physical Exam - Vital signs Vitals: Temp Pulse Resp BP Pulse Ox 99.1 F 131 H 18 136/98 H 97 07/18/19 18:30 07/18/19 18:30 07/18/19 18:30 07/18/19 18:30 07/18/19 18:30 Course - Re-evaluation Re-evalutation: Patient seen and examined vital signs reviewed. Laboratory data and/or imaging were ordered as appropriate for the patient's presenting symptoms and complaint, with consideration of any critical or life threatening conditions that may be associated with their obtained history and exam as noted above. Patient was treated with GI cocktail, IV Diflucan, and 2 L of IV fluids, she is also given a dose of tramadol. Results were reviewed when available and demonstrated improved blood work from her previous visit, her thrombocytopenia is improved, she is not leukopenic. Normal renal function The patient was re-evaluated and was improved, heart rate, still having some discomfort, I discussed with her at length, that she needs to take antifungal therapy, and needs to follow-up with the primary care, as well as gastroenterology, she needs at least 2 weeks worth of treatment with oral Diflucan. Evaluation was most consistent with thrush, Sarai esophagitis, patient given prescriptions additionally for tramadol, Carafate, and omeprazole. Results were discussed with the patient at this point, after careful consideration I feel that that patient can be discharged from the emergency department, the patient was educated treatments and reasons to return to the emergency department based on their presumed diagnosis as noted above, they were advised to followup with a primary care physician in 2-3 days. Patient was agreeable to plan of care. *Note is created using voice recognition software and may contain spelling, syntax or grammatical errors. Laboratory 07/18/19 07/18/19 07/18/19 19:59 19:59 19:59 WBC 4.0 RBC 5.05 Hgb 12.4 Hct 36.5 MCV 72 L MCH 24.6 L MCHC 34.0 RDW 14.2 H Plt Count 86 L Lymph % (Auto) 19.3 [place] % (Auto) 11.9 Eos % (Auto) 0.5 Baso % (Auto) 0.6 Absolute Neuts (auto) 2.7 Absolute Lymphs (auto) 0.8 Absolute Monos (auto) 0.5 Absolute Eos (auto) 0.0 Absolute Basos (auto) 0.0 Seg Neutrophils % 67.7 Sodium 141.3 Potassium 4.3 Chloride 106 Carbon Dioxide 24 Anion Gap 11 BUN 21 H Creatinine 0.35 L Est GFR ( Amer) > 60 Est GFR (MDRD) Non-Af > 60 Glucose 80 Calcium 9.6 Magnesium 1.7 Total Bilirubin 0.8 Direct Bilirubin 0.5 H Neonat Total Bilirubin Not Reportable Neonat Direct Bilirubin Not Reportable Neonat Indirect Bili Not Reportable AST 76 H ALT 58 Alkaline Phosphatase 220 H Total Protein 7.9 Albumin 4.0 Lipase 138.9 Serum HCG, Qual NEGATIVE Urine Color Urine Appearance Urine pH Ur Specific [place] Urine Protein Urine Glucose (UA) Urine Ketones Urine Blood Urine Nitrite Urine Bilirubin Urine Urobilinogen Ur Leukocyte Esterase Urine WBC (Auto) Urine RBC (Auto) U Hyaline Cast (Auto) Urine Bacteria (Auto) Squamous Epi Cells Auto Urine Mucus (Auto) Urine Ascorbic Acid 07/18/19 22:47 WBC RBC Hgb Hct MCV MCH MCHC RDW Plt Count Lymph % (Auto) [place] % (Auto) Eos % (Auto) Baso % (Auto) Absolute Neuts (auto) Absolute Lymphs (auto) Absolute Monos (auto) Absolute Eos (auto) Absolute Basos (auto) Seg Neutrophils % Sodium Potassium Chloride Carbon Dioxide Anion Gap BUN Creatinine Est GFR ( Amer) Est GFR (MDRD) Non-Af Glucose Calcium Magnesium Total Bilirubin Direct Bilirubin Neonat Total Bilirubin Neonat Direct Bilirubin Neonat Indirect Bili AST ALT Alkaline Phosphatase Total Protein Albumin Lipase Serum HCG, Qual Urine Color YELLOW Urine Appearance SLIGHTLY-CLOUDY Urine pH 6.0 Ur Specific [place] 1.019 Urine Protein 100 H Urine Glucose (UA) NEGATIVE Urine Ketones TRACE H Urine Blood MODERATE H Urine Nitrite NEGATIVE Urine Bilirubin NEGATIVE Urine Urobilinogen 2.0 H Ur Leukocyte Esterase NEGATIVE Urine WBC (Auto) 5 Urine RBC (Auto) 14 U Hyaline Cast (Auto) 3 Urine Bacteria (Auto) TRACE Squamous Epi Cells Auto 7 Urine Mucus (Auto) MANY Urine Ascorbic Acid NEGATIVE - Vital Signs Vital signs: Temp Pulse Resp BP Pulse Ox 99.1 F 131 H 18 136/98 H 97 07/18/19 18:30 07/18/19 18:30 07/18/19 18:30 07/18/19 18:30 07/18/19 18:30 - Laboratory Result Diagrams: 07/18/19 19:59 07/18/19 19:59 Laboratory results interpreted by me: 07/18/19 07/18/19 07/18/19 19:59 19:59 22:47 MCV 72 L MCH 24.6 L RDW 14.2 H Plt Count 86 L BUN 21 H Creatinine 0.35 L Direct Bilirubin 0.5 H AST 76 H Alkaline Phosphatase 220 H Urine Protein 100 H Urine Ketones TRACE H Urine Blood MODERATE H Urine Urobilinogen 2.0 H - EKG Interpretation by Me Additional EKG results interpreted by me: EKG demonstrates sinus tachycardia with a ventricular rate of 117 bpm, normal axis, QTC 491 ms, no evidence of acute ischemia in this EKG, compared with prior EKG from 07/14/2019, without significant change. Discharge - Discharge Clinical Impression: Esophageal candidiasis, Upper abdominal pain HIV (human immunodeficiency virus infection) Qualifiers: HIV symptom status: unspecified Qualified Code(s): B20 - Human immunodeficiency virus [HIV] disease Condition: Stable Disposition: HOME, SELF-CARE Instructions: Oral Thrush ([facility]), Esophagitis ([facility]) Additional Instructions: Please take all medications as prescribed, continue to take the Diflucan, 200 mg daily, for at least 2 weeks, you have given an additional prescription, to have a total of 2 weeks worth of therapy, please take all other medications as prescribed, to help with your symptoms. Please attempt to keep yourself hydrated home, drink plenty of fluids, I rec ommend you take the Carafate, 30 minutes prior to eating or drinking anything, and be sure to resume your antiretroviral therapy, for your HIV, as this is very important to, help treat the swelling and pain in your throat as well, as treating the HIV, is imperative, to preventing recurrence of this infection in your esophagus. Prescriptions: Sucralfate [Carafate 1 gm Tablet] 1 gm PO ACHS #120 tablet Fluconazole [Diflucan] 200 mg PO DAILY #7 tablet Omeprazole 40 mg PO DAILY #30 capsule. Tramadol HCl [Ultram] 50 mg PO Q8H PRN #15 tablet PRN Reason: throat pain Referrals: AIYANA REAGAN MD [ACTIVE STAFF] - Follow up in 3-5 days (gastroenterology )
[2019-07-18] MEDS ORDERED: FLUCONAZOLE 200 MG/NS RTU 200 MG/100 ML RTUPB IV ONE (20:04)
[2019-07-18 20:17] LABS: ABSOLUTE LYMPHOCYTES (AUTO) 0.8 10^3/uL (0.5-4.7); ABSOLUTE MONOCYTES (AUTO) 0.5 10^3/uL (0.1-1.4); ABSOLUTE NEUT (AUTO) 2.7 10^3/uL (1.7-8.2); BASOPHILS % (AUTO) 0.6 % (0-2); EOSINOPHILS % (AUTO) 0.5 % (0-6); HEMATOCRIT 36.5 % (36.0-47.0); HEMOGLOBIN 12.4 g/dL (12.0-15.5); LYMPHOCYTES % (AUTO) 19.3 % (13-45); MEAN CORPUSCULAR HEMOGLOBIN 24.6 pg (27.0-33.4); MEAN CORPUSCULAR VOLUME 72 fl (80-97); MONOCYTES % (AUTO) 11.9 % (3-13); RED BLOOD COUNT 5.05 10^6/uL (3.72-5.28); RED CELL DISTRIBUTION WIDTH 14.2 % (11.5-14.0); SEGMENTED NEUTROPHILS % (AUTO) 67.7 % (42-78); TOTAL CELLS COUNTED % (AUTO) 100 %
[2019-07-18] MEDS ORDERED: PANTOPRAZOLE SODIUM 40 MG VIAL IV ONE (20:17)
[2019-07-18 20:27] LABS: ALKALINE PHOSPHATASE 220 U/L (38-126); ANION GAP 11 (5-19); ASPARTATE AMINO TRANSFERASE 76 U/L (14-36); BILIRUBIN,DIRECT 0.5 mg/dL (0.0-0.4); BILIRUBIN,TOTAL 0.8 mg/dL (0.2-1.3); BLOOD UREA NITROGEN 21 mg/dL (7-20); CALCIUM 9.6 mg/dL (8.4-10.2); CARBON DIOXIDE 24 mmol/L (22-30); CHLORIDE 106 mmol/L (98-107); GLUCOSE 80 mg/dL (75-110); POTASSIUM 4.3 mmol/L (3.6-5.0); TOTAL PROTEIN 7.9 g/dL (6.3-8.2)
[2019-07-18 20:43] LABS: PLATELET COUNT 86 10^3/uL (150-450)
[2019-07-18] MEDS ORDERED: RINGERS SOLUTION,LACTATED 1,000 ML IV ONE (21:16)
[2019-07-18] MEDS ORDERED: TRAMADOL HCL 50 MG TABLET PO ONE (22:12)
[2019-07-18] MEDS ORDERED: METOCLOPRAMIDE HCL ORAL SOLN 10 MG/10 ML UDCUP PO ONE (22:12)
[2019-07-18] MEDS ORDERED: MAG HYDROX/AL HYDROX/SIMETH SUSP 30 ML UDCUP PO ONE (22:12)
[2019-07-18] MEDS ORDERED: LIDOCAINE 2% VISCOUS SOLN 20 ML UDCUP PO ONE (22:12)
[2019-07-18 23:14] LABS: APPEARANCE,URINE SLIGHTLY-CLOUDY; BILIRUBIN,URINE NEGATIVE (NEGATIVE); COLOR,URINE YELLOW; GLUCOSE, URINE NEGATIVE (NEGATIVE); KETONES,URINE TRACE mg/dL (NEGATIVE); LEUKOCYTE ESTERASE,URINE NEGATIVE (NEGATIVE); NITRITE,URINE NEGATIVE (NEGATIVE); PROTEIN,URINE 100 mg/dL (NEGATIVE); URINE SPECIFIC GRAVITY 1.019
[2019-07-18 23:26] LABS: URINE AMPHETAMINES SCREEN NEGATIVE; URINE BARBITURATES SCREEN NEGATIVE; URINE BENZODIAZEPINES SCREEN NEGATIVE; URINE COCAINE SCREEN NEGATIVE; URINE MARIJUANA (THC) SCREEN NEGATIVE; URINE METHADONE SCREEN NEGATIVE; URINE PHENCYCLIDINE SCREEN NEGATIVE
--- NOTE | 2019-07-18 23:40 | EKG REPORT ---
SEVERITY:- ABNORMAL ECG - SINUS TACHYCARDIA RIGHT ATRIAL ABNORMALITY CONSIDER LEFT VENTRICULAR HYPERTROPHY BORDERLINE PROLONGED QT INTERVAL : Confirmed by: Brendan Aranda MD 18-Jul-2019 23:40:05
[2019-07-19 01:42] VITALS: BP 187/122
[2019-07-22 11:37] LABS: % CD 4 POS LYMPH 22.7 % (30.8-58.5); % CD 8 POS LYMPH 62.2 % (12.0-35.5); ABSOLUTE CD 4 HELPER 227 /uL (359-1519); ABSOLUTE CD 8 SUPPRESSOR 622 /uL (109-897); CD BASOPHILS 0 % (Not Estab.); CD EOSINOPHILS 0 % (Not Estab.); CD MONOCYTES 14 % (Not Estab.); CD NEUTROPHILS 53 % (Not Estab.); CD4/CD8 RATIO 0.36 (0.92-3.72); HEMOGLOBIN 10.1 g/dL (11.1-15.9); IMMATURE GRANULOCYTES 0 % (Not Estab.); MCHC 32.6 g/dL (31.5-35.7); MCV 74 fL (79-97); RDW 14.2 % (12.3-15.4)
[2019-07-22 12:25] LABS: PLATELETS 88 x10E3/uL (150-450); RBC 4.21 x10E6/uL (3.77-5.28)
== END 2019-07-19 01:42 | disposition home or self-care (01) ==
LOC: ER 18:25
DX: B20 Human immunodeficiency virus [HIV] disease (principal); B37.81 Candidal esophagitis; R53.1 Weakness; R10.13 Epigastric pain; F17.200 Nicotine dependence, unspecified, uncomplicated
CPT/HCPCS: 93005; 99284; 96361; 96375; 96365; 96366; 86360; 36415; 83690; 83735; 84703; 85025; 80053; 81001; 80307; 93010; J3490 ×3; S0164; J2405; J7030; J7120; J1450

== ENCOUNTER 2019-08-12 18:03 | Inpatient (IN) | payer MEDICARE, MEDICAID ==
--- NOTE | 2019-08-12 18:29 | ER Document Report ---
ED Medical Screen (RME) - General Chief Complaint: Epigastric Pain Stated Complaint: ABDOMINAL PAIN Time Seen by Provider: 08/12/19 18:15 Notes: 21-year-old female with HIV not currently on antiretroviral therapy, Graves' disease, and history of presumed candidal esophagitis presents to the emergency department with chief complaint of epigastric pain, poor appetite, anorexia. Patient has been unable to take any of her medications secondary to the pain and loss of appetite for the past 5 weeks. Patient continues to lose weight, is weak, complains of shortness of breath, denies chest pain. Patient is significantly tachycardic in the 160s. Exam: Frail and cachectic, tremulous, significant tachycardia, lungs are clear to auscultation in all bowling abdominal exam deferred in triage I have greeted and performed a rapid initial assessment of this patient. A comprehensive ED assessment and evaluation of the patient, analysis of test results and completion of medical decision making process will be conducted by an additional ED providers. TRAVEL OUTSIDE OF THE [place] IN LAST 30 DAYS: No - Related Data Allergies/Adverse Reactions: No Known Allergies Allergy (Verified 07/18/19 18:25) Past Medical History - Social History Frequency of alcohol use: None Drug Abuse: None - Past Medical History Cardiac Medical History: Reports: Hx Hypertension - Hypertensive only with preeclampsia during her . Denies: Hx Congestive Heart Failure, Hx DVT, Hx Heart Attack, Hx Hypercholesterolemia, Hx Pulmonary Embolism Pulmonary Medical History: Denies: Hx Asthma, Hx COPD Neurological Medical History: Denies: Hx Seizures Endocrine Medical History: Reports: Hx Hypothyroidism. Denies: Hx Diabetes Mellitus Type 1, Hx Diabetes Mellitus Type 2, Hx Hyperthyroidism Renal/ Medical History: Denies: Hx Peritoneal Dialysis GI Medical History: Denies: Hx Cirrhosis, Hx Gastroesophageal Reflux Disease, Hx Hepatitis Musculoskeltal Medical History: Denies Hx Arthritis Psychiatric Medical History: Reports: Hx Depression Infectious Medical History: Reports: Hx HIV. Denies: Hx Hepatitis - Immunizations Immunizations up to date: Yes Hx Diphtheria, Pertussis, Tetanus Vaccination: Yes Physical Exam - Vital signs Vitals: Temp Pulse Resp BP Pulse Ox 98.5 F 162 H 18 140/94 H 98 08/12/19 18:13 08/12/19 18:13 08/12/19 18:13 08/12/19 18:13 08/12/19 18:13 Course - Vital Signs Vital signs: Temp Pulse Resp BP Pulse Ox 98.5 F 162 H 18 140/94 H 98 08/12/19 18:13 08/12/19 18:13 08/12/19 18:13 08/12/19 18:13 08/12/19 18:13
[2019-08-12] MEDS ORDERED: NORMAL SALINE 1000 ML 1,000 ML IV ONE ×2 (19:19→21:33)
[2019-08-12] MEDS ORDERED: METOPROLOL TARTRATE PF/INJ 5 MG/5 ML SDV IV ONE (19:19)
[2019-08-12 19:31] LABS: ABSOLUTE LYMPHOCYTES (AUTO) 0.9 10^3/uL (0.5-4.7); ABSOLUTE MONOCYTES (AUTO) 0.5 10^3/uL (0.1-1.4); ABSOLUTE NEUT (AUTO) 2.7 10^3/uL (1.7-8.2); BASOPHILS % (AUTO) 0.2 % (0-2); EOSINOPHILS % (AUTO) 0.9 % (0-6); HEMATOCRIT 35.9 % (36.0-47.0); LYMPHOCYTES % (AUTO) 21.3 % (13-45); MEAN CORPUSCULAR HEMOGLOBIN 23.9 pg (27.0-33.4); MEAN CORPUSCULAR HGB CONC 33.5 g/dL (32.0-36.0); MEAN CORPUSCULAR VOLUME 71 fl (80-97); PLATELET COUNT 115 10^3/uL (150-450); RED BLOOD COUNT 5.03 10^6/uL (3.72-5.28); RED CELL DISTRIBUTION WIDTH 13.8 % (11.5-14.0); SEGMENTED NEUTROPHILS % (AUTO) 64.6 % (42-78); TOTAL CELLS COUNTED % (AUTO) 100 %; WHITE BLOOD COUNT 4.1 10^3/uL (4.0-10.5)
[2019-08-12 19:56] LABS: ALBUMIN 4.2 g/dL (3.5-5.0); ALKALINE PHOSPHATASE 163 U/L (38-126); ANION GAP 15 (5-19); ASPARTATE AMINO TRANSFERASE 59 U/L (14-36); BLOOD UREA NITROGEN 34 mg/dL (7-20); CALCIUM 9.6 mg/dL (8.4-10.2); CARBON DIOXIDE 25 mmol/L (22-30); CHLORIDE 101 mmol/L (98-107); GLUCOSE 88 mg/dL (75-110); POTASSIUM 3.8 mmol/L (3.6-5.0)
[2019-08-12 19:57] LABS: BILIRUBIN,DIRECT 0.5 mg/dL (0.0-0.4); BILIRUBIN,TOTAL 0.9 mg/dL (0.2-1.3); TOTAL PROTEIN 8.4 g/dL (6.3-8.2)
[2019-08-12] MEDS ORDERED: METHIMAZOLE 5 MG TABLET PO ONE (20:15)
[2019-08-12] MEDS ORDERED: ATENOLOL 50 MG TABLET PO ONE (21:33)
--- NOTE | 2019-08-12 21:42 | ER Document Report ---
ED General - General Chief Complaint: Epigastric Pain Stated Complaint: ABDOMINAL PAIN Time Seen by Provider: 08/12/19 18:15 Mode of Arrival: Ambulatory Information source: Patient TRAVEL OUTSIDE OF THE [place] IN LAST 30 DAYS: No - HPI Notes: This is a patient who was born with HIV. She also has a history of Graves' disease. She states she was recently diagnosed with yeast in her esophagus and started on antifungals and Carafate but with no relief. She states she still cannot eat or drink. She has not been able to take her medications. She also s tates that she lost her insurance 5 weeks ago and has not been able to follow-up with her doctors. She states she has extreme weakness and fatigue. She also has burning that is worse when she swallows. There is better she does not swallow. This burning is in the center of her chest and does not radiate. It is constant. It is moderate to severe. It does prevent her from eating and drinking. - Related Data Allergies/Adverse Reactions: No Known Allergies Allergy (Verified 07/18/19 18:25) Past Medical History - General Information source: Patient - Social History Smoking Status: Current Every Day Smoker Frequency of alcohol use: None Drug Abuse: None Family History: Reviewed & Not Pertinent Patient has suicidal ideation: No Patient has homicidal ideation: No - Past Medical History Cardiac Medical History: Reports: Hx Hypertension - Hypertensive only with preeclampsia during her . Denies: Hx Congestive Heart Failure, Hx DVT, Hx Heart Attack, Hx Hypercholesterolemia, Hx Pulmonary Embolism Pulmonary Medical History: Denies: Hx Asthma, Hx COPD Neurological Medical History: Denies: Hx Seizures Endocrine Medical History: Reports: Hx Hypothyroidism. Denies: Hx Diabetes Mellitus Type 1, Hx Diabetes Mellitus Type 2, Hx Hyperthyroidism Renal/ Medical History: Denies: Hx Peritoneal Dialysis GI Medical History: Denies: Hx Cirrhosis, Hx Gastroesophageal Reflux Disease, Hx Hepatitis Musculoskeletal Medical History: Denies Hx Arthritis Psychiatric Medical History: Reports: Hx Depression Infectious Medical History: Reports: Hx HIV. Denies: Hx Hepatitis - Immunizations Immunizations up to date: Yes Hx Diphtheria, Pertussis, Tetanus Vaccination: Yes Review of Systems - Review of Systems Constitutional: Malaise, Weakness Cardiovascular: Chest pain, Palpitations Respiratory: denies: Cough, Stridor Gastrointestinal: Nausea, Vomiting -: Yes All other systems reviewed and negative Physical Exam - Vital signs Vitals: Temp Pulse Resp BP Pulse Ox 98.5 F 162 H 18 140/94 H 98 08/12/19 18:13 08/12/19 18:13 08/12/19 18:13 08/12/19 18:13 08/12/19 18:13 Interpretation: Normal - General General appearance: Alert In distress: Mild Notes: Cachectic appearing - HEENT Head: Normocephalic, Atraumatic Eyes: Normal Pupils: PERRL Nasal: Normal Mouth/Lips: Normal Mucous membranes: Moist Pharynx: Normal Neck: Normal - Respiratory Respiratory status: No respiratory distress Chest status: Nontender Breath sounds: Normal Chest palpation: Normal - Cardiovascular Rhythm: Tachycardia Heart sounds: Normal auscultation Murmur: No - Abdominal Inspection: Normal Distension: No distension Bowel sounds: Normal Tenderness: Nontender Organomegaly: No organomegaly - Back Back: Normal, Nontender - Extremities General upper extremity: Normal inspection, Nontender, Normal color, Normal ROM, Normal temperature General lower extremity: Normal inspection, Nontender, Normal color, Normal ROM, Normal temperature, Normal weight bearing. No: Shakira's sign - Neurological Neuro grossly intact: Yes Cognition: Normal Orientation: AAOx4 [place] Coma Scale Eye Opening: Spontaneous [place] Coma Scale Verbal: Oriented [place] Coma Scale Motor: Obeys Commands [place] Coma Scale Total: 15 Speech: Normal Motor strength normal: LUE, RUE, LLE, RLE Sensory: Normal - Psychological Associated symptoms: Normal affect, Normal mood - Skin Skin Temperature: Warm Skin Moisture: Dry Skin Color: Normal Course - Re-evaluation Re-evalutation: 08/12/19 21:38 Patient reexamined just now. Heart rate and blood pressure are better after the IV metoprolol. Although heart rate is still 120. Blood pressure is still elevated. Patient states she does not feel any better. She is also received 1 L of fluid. We will try a GI cocktail and another liter of fluid. CBC and chemistry show dehydration with some lab still pending. 08/12/19 23:42 Patient reassessed just now. Patient is lying in the bed in no distress. She is still slightly tachycardic but much better than arrival. She is received several doses of beta-mirian as well as IV fluids. GI cocktail only provided relief for several minutes she states. I do believe that her centralized chest pain is due to GI issues and not to cardiac issues. Patient will be admitted for further evaluation and treatment. - Vital Signs Vital signs: Temp Pulse Resp BP Pulse Ox 98.1 F 122 H 27 H 145/107 H 99 08/12/19 23:00 08/12/19 21:53 08/12/19 23:01 08/12/19 23:00 08/12/19 23:01 - Laboratory Result Diagrams: 08/12/19 19:00 08/12/19 19:00 Laboratory results interpreted by me: 08/12/19 08/12/19 08/12/19 19:00 19:00 21:33 Hct 35.9 L MCV 71 L MCH 23.9 L Plt Count 115 L BUN 34 H Direct Bilirubin 0.5 H AST 59 H Alkaline Phosphatase 163 H Total Protein 8.4 H TSH < 0.01 L Free T4 5.19 H Free T3 pg/mL 17.50 H Urine Protein Urine Ketones Urine Blood Urine Urobilinogen 08/12/19 21:50 Hct MCV MCH Plt Count BUN Direct Bilirubin AST Alkaline Phosphatase Total Protein TSH Free T4 Free T3 pg/mL Urine Protein 100 H Urine Ketones TRACE H Urine Blood MODERATE H Urine Urobilinogen 4.0 H - EKG Interpretation by Me EKG shows normal: Sinus rhythm Rate: Tachycardia - sinus tach at 142 [place]/QRS: No: Right axis deviation, Left axis deviation Critical Care Note - Critical Care Note Total time excluding time spent on procedures (mins): 55 Comments: 55 minutes of critical care time were spent on this patient. This included mult iple reassessments. It included reviewing laboratory values. And included reviewing studies with the consultants. It also included speaking with patient and family. Discharge - Discharge Clinical Impression: Esophagitis Thyrotoxicosis Qualifiers: Thyrotoxicosis type: other Thyrotoxic crisis or storm presence: without thyrotoxic crisis or storm Qualified Code(s): E05.80 - Other thyrotoxicosis without thyrotoxic crisis or storm HIV (human immunodeficiency virus infection) Qualifiers: HIV symptom status: unspecified Qualified Code(s): B20 - Human immunodeficiency virus [HIV] disease Condition: Stable Disposition: ADMITTED INPATIENT Admitting Provider: Lara (Hospitalist) Unit Admitted: [facility]
[2019-08-12 22:28] LABS: APPEARANCE,URINE CLOUDY; BILIRUBIN,URINE NEGATIVE (NEGATIVE); COLOR,URINE AMBER; GLUCOSE, URINE NEGATIVE (NEGATIVE); KETONES,URINE TRACE mg/dL (NEGATIVE); LEUKOCYTE ESTERASE,URINE NEGATIVE (NEGATIVE); NITRITE,URINE NEGATIVE (NEGATIVE); PROTEIN,URINE 100 mg/dL (NEGATIVE); URINE SPECIFIC GRAVITY 1.019
--- NOTE | 2019-08-12 22:28 | EKG REPORT ---
SEVERITY:- ABNORMAL ECG - SINUS TACHYCARDIA ANTERIOR ST ELEVATION, PROBABLY DUE TO LVH : Confirmed by: Rachele Robertson 12-Aug-2019 22:28:03
[2019-08-12 22:41] LABS: FREE T4 (FREE THYROXINE) 5.19 ng/dL (0.78-2.19)
[2019-08-12 22:57] LABS: THYROID STIMULATING HORMONE < 0.01 uIU/mL (0.47-4.68)
[2019-08-12] MEDS ORDERED: LIDOCAINE 2% VISCOUS SOLN 20 ML UDCUP PO ONE (23:03)
[2019-08-12] MEDS ORDERED: METOCLOPRAMIDE HCL ORAL SOLN 10 MG/10 ML UDCUP PO ONE (23:03)
[2019-08-12] MEDS ORDERED: MAG HYDROX/AL HYDROX/SIMETH SUSP 30 ML UDCUP PO ONE (23:03)
[2019-08-12] MEDS ORDERED: MAG HYDROX/AL HYDROX/SIMETH SUSP 30 ML UDCUP PO PRN (23:49)
[2019-08-12] MEDS ORDERED: ONDANSETRON HCL INJ/PF 4 MG/2 ML SDV IV PRN (23:49)
[2019-08-12] MEDS ORDERED: MAGNESIUM HYDROXIDE SUSP 30 ML UDCUP PO PRN (23:49)
[2019-08-12] MEDS ORDERED: ACETAMINOPHEN 325 MG TABLET PO PRN (23:58)
[2019-08-12] MEDS ORDERED: MORPHINE SULFATE 10 MG/ML INJ IV PRN (23:58)
[2019-08-12] MEDS ORDERED: ACETAMINOPHEN 650 MG SUPP.RECT PR PRN (23:58)
[2019-08-13] MEDS ORDERED: MORPHINE SULFATE 10 MG/ML INJ IV PRN ×2 (00:17→00:18)
[2019-08-13] MEDS ORDERED: FLUCONAZOLE 200 MG/NS RTU 200 MG/100 ML RTUPB IV ONE (00:30)
[2019-08-13] MEDS: DEXTROSE 5%-LACTATED RINGERS 1,000 ML IV PRN (01:46)
[2019-08-13] MEDS: PROMETHAZINE HCL INJ 25 MG/1 ML VIAL IV PRN (01:47)
[2019-08-13] MEDS: HEPARIN SOD (PORCINE) 5,000 UNIT/ML 1 ML VIAL SUBCUT SCH ×3 (05:35→21:44)
[2019-08-13] MEDS: METOPROLOL TARTRATE 50 MG TABLET PO SCH ×3 (05:38→21:56)
[2019-08-13] MEDS: METHIMAZOLE 5 MG TABLET PO SCH ×3 (05:38→21:57)
[2019-08-13] MEDS ORDERED: METOPROLOL TARTRATE 50 MG TABLET PO SCH (06:00)
--- NOTE | 2019-08-13 06:03 | PDOC H&P ---
History of Present Illness Admission Date/PCP: 08/12/2019 23:22 No local PCP Patient complains of: Abdominal pain History of Present Illness: ADRIANA NICHOLE is a 29 year old female who presented to the emergency room with a 5-week history of progressively worsening abdominal pain. She indicates that she has not been able to take any of her usual medications for HIV/AIDS or Graves' hyperthyroidism due to pain with swallowing. She admits gradually worsening epigastric pain with associated heartburn and anorexia. The epigastric pain and heartburn are now severe. Her heartburn is continuous, dramatically increased with swallowing anything and is centered in her anterior chest without radiation. The epigastric pain constant, of a gripping and burning in nature, does not radiate and is worsened with ingestion. She has been to the emergency room several times for treatment of these problems with a non-confirmed diagnosis of Sarai esophagitis which was treated with Carafate, omeprazole and Diflucan without improvement. She reports additional associated symptoms of generalized weakness, weight loss, fatigue and dyspnea with exertion. She denies prior similar symptoms and has not identified any additional aggravating or ameliorating factors for her abdominal pain. In the emergency room she was found to have tachycardia and hypertension. Laboratory studies revealed a thyrotoxicosis and the patient was subsequently treated with methimazole and beta-blockers. Recommendation to the emergency room that the patient would be better served by transfer to a facility with infectious disease, endocrinology and gastroenterology subspecialties was made, however no beds were available at the facilities contacted by the emergency room physician. She was subsequently admitted to the hospital for further evaluation and treatment. Past Medical History Cardiac Medical History: Reports: Hypertension - preeclampsia during . 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 Denies: Cataracts Neurological Medical History: Denies: Multiple Sclerosis, Seizures Endocrine Medical History: Reports: Hyperthyroidism Denies: Diabetes Mellitus Type 1, Diabetes Mellitus Type 2, Hypothyroidism Renal/ Medical History: Denies: Chronic Kidney Disease, Nephrolithiasis Malignancy Medical History: Reports: None GI Medical History: Denies: Cirrhosis, Hepatitis, Other - HIV associated esophagitis Musculoskeltal Medical History: Denies: Arthritis, Gout Skin Medical History: Denies: Eczema, Psoriasis Psychiatric Medical History: Reports: Depression, General Anxiety Disorder, Tobacco Dependency Denies: Alcohol Dependency, Substance Abuse Traumatic Medical History: Reports: None Hematology: Denies: Anemia, Bleeding Tendencies Infectious Medical History: Reports: HIV Past Surgical History Past Surgical History: Reports: None Social History Information Source: Patient Lives with: Friend Smoking Status: Current Every Day Smoker Frequency of Alcohol Use: Social Hx Recreational Drug Use: No Drugs: None Hx Prescription Drug Abuse: No - Advance Directive Resuscitation Status: Full Code Surrogate healthcare decision maker:: Angie Swain Family History Family History: Other - HIV AIDS Family History: Patient was adopted but knows her mother of AIDS Parental Family History Reviewed: Yes Children Family History Reviewed: No Sibling(s) Family History Reviewed.: No Medication/Allergy Home Medications: Fluconazole [Diflucan] 200 mg PO DAILY #7 tablet 07/18/19 Omeprazole 40 mg PO DAILY #30 capsule. 07/18/19 Sucralfate [Carafate 1 gm Tablet] 1 gm PO ACHS #120 tablet 07/18/19 Tramadol HCl [Ultram] 50 mg PO Q8H PRN #15 tablet 07/18/19 Allergies/Adverse Reactions: No Known Allergies Allergy (Verified 07/18/19 18:25) Review of Systems Constitutional: PRESENT: as per HPI, anorexia, fatigue, weakness, weight loss. ABSENT: chills, fever(s) Eyes: ABSENT: visual disturbances, other - Eye pain Ears: ABSENT: hearing changes, other - Ear pain Nose, Mouth, and Throat: PRESENT: sore throat - hurts to swallow. ABSENT: mouth pain Cardiovascular: PRESENT: as per HPI, chest pain - "heartburn". ABSENT: palpitations Respiratory: PRESENT: dyspnea. ABSENT: cough Gastrointestinal: PRESENT: as per HPI, abdominal pain. ABSENT: constipation, diarrhea, nausea, vomiting Genitourinary: ABSENT: dysuria, hematuria Musculoskeletal: PRESENT: muscle weakness. ABSENT: back pain, joint swelling Integumentary: ABSENT: pruritus, rash Neurological: ABSENT: confusion, convulsions, focal weakness, memory loss, syncope Psychiatric: ABSENT: anxiety, depression Endocrine: ABSENT: cold intolerance, heat intolerance Hematologic/Lymphatic: ABSENT: easy bleeding, easy bruising Allergic/Immunologic: ABSENT: seasonal rhinorrhea Physical Exam Vital Signs: Temp Pulse Resp BP Pulse Ox 98.1 F 122 H 27 H 145/107 H 99 09/23/19 23:00 08/12/19 21:53 08/12/19 23:01 08/12/19 23:00 08/12/19 23:01 Intake & Output 08/11/19 08/12/19 08/13/19 23:59 23:59 23:59 Intake Total 1931 Balance 193 Weight 33.4 kg General appearance: PRESENT: cooperative, mild distress - Secondary to abdominal discomfort, thin Head exam: PRESENT: atraumatic, normocephalic Eye exam: PRESENT: conjunctiva pink. ABSENT: conjunctival injection, scleral icterus Ear exam: PRESENT: normal external ear exam. ABSENT: bleeding, drainage Mouth exam: PRESENT: dry mucosa, neck supple Neck exam: PRESENT: thyromegaly. ABSENT: tracheal deviation Respiratory exam: PRESENT: clear to auscultation ty, symmetrical, unlabored Cardiovascular exam: PRESENT: RRR, tachycardia. ABSENT: clicks, gallop, rubs Pulses: PRESENT: normal radial pulses, normal dorsalis pedis pul Vascular exam: PRESENT: normal capillary refill. ABSENT: pallor GI/Abdominal exam: PRESENT: normal bowel sounds, soft, tenderness - Moderate epigastric tenderness on palpation Rectal exam: PRESENT: deferred Extremities exam: ABSENT: joint swelling, pedal edema Musculoskeletal exam: ABSENT: deformity, dislocation Neurological exam: PRESENT: alert, oriented to person, oriented to place, oriented to time, oriented to situation, CN II-XII grossly intact. ABSENT: motor sensory deficit Psychiatric exam: PRESENT: appropriate affect, normal mood Skin exam: PRESENT: dry, intact, warm. ABSENT: jaundice, rash, urticaria Results Laboratory Results: 08/12/19 19:00 08/12/19 19:00 08/12/19 08/12/19 08/12/19 19:00 19:00 19:00 WBC 4.1 RBC 5.03 Hgb 12.0 Hct 35.9 L MCV 71 L MCH 23.9 L MCHC 33.5 RDW 13.8 Plt Count 115 L Seg Neutrophils % 64.6 Sodium 140.5 Potassium 3.8 Chloride 101 Carbon Dioxide 25 Anion Gap 15 BUN 34 H Creatinine 0.67 Est GFR ( Amer) > 60 Glucose 88 Calcium 9.6 Total Bilirubin 0.9 AST 59 H Alkaline Phosphatase 163 H Total Protein 8.4 H Albumin 4.2 TSH Cancelled Free T4 Cancelled Free T3 pg/mL Cancelled Urine Color Urine Appearance Urine pH Ur Specific [place] Urine Protein Urine Glucose (UA) Urine Ketones Urine Blood Urine Nitrite Ur Leukocyte Esterase Urine WBC (Auto) Urine RBC (Auto) 08/12/19 08/12/19 21:33 21:50 WBC RBC Hgb Hct MCV MCH MCHC RDW Plt Count Seg Neutrophils % Sodium Potassium Chloride Carbon Dioxide Anion Gap BUN Creatinine Est GFR ( Amer) Glucose Calcium Total Bilirubin AST Alkaline Phosphatase Total Protein Albumin TSH < 0.01 L Free T4 5.19 H Free T3 pg/mL 17.50 H Urine Color ADRIANNE Urine Appearance CLOUDY Urine pH 5.0 Ur Specific [place] 1.019 Urine Protein 100 H Urine Glucose (UA) NEGATIVE Urine Ketones TRACE H Urine Blood MODERATE H Urine Nitrite NEGATIVE Ur Leukocyte Esterase NEGATIVE Urine WBC (Auto) 10 Urine RBC (Auto) 5 08/12/19 19:00 Troponin I < 0.012 Assessment and Plan - Diagnosis (1) Thyrotoxicosis Qualifiers: Thyrotoxicosis type: unspecified thyrotoxicosis type Thyrotoxic crisis or storm presence: with thyrotoxic crisis or storm Qualified Code(s): E05.91 - Thyrotoxicosis, unspecified with thyrotoxic crisis or storm Is this a current diagnosis for this admission?: Yes Plan: Patient will be treated with beta-blockers and methimazole. She will be on IMCU in a telemetry monitored bed throughout her hospital stay. Her vital signs were monitored closely and further intervention will be undertaken as required. Daily CBCs, metabolic profiles and thyroid profiles will be obtained. (2) Epigastric abdominal pain Is this a current diagnosis for this admission?: Yes Plan: Patient's epigastric pain will be evaluated as soon as an EGD can be scheduled with a gastroenterology senior wind energy consultant. In the interim patient will be treated with sucralfate, Reglan, Protonix and Diflucan. She will also have supportive cares using Maalox or Mylanta to help ease the esophageal and epigastric burning discomfort. She will also use morphine sulfate 2 to 4 mg IV every 2 hours on a as needed basis for pain via a sliding scale (3) Esophagitis Is this a current diagnosis for this admission?: Yes Plan: Patient's esophagitis will be evaluated as soon as an EGD can be scheduled with a gastroenterology senior wind energy consultant. In the interim patient will be treated with sucralfate, Reglan, Protonix and Diflucan. She will also have supportive cares using Maalox or Mylanta to help ease the esophageal and epigastric burning discomfort. She will also use morphine sulfate 2 to 4 mg IV every 2 hours on a as needed basis for pain via a sliding scale. Consider surgical consultation for possible PEG tube placement to use for medication administration and enteral nutrition. 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 (5) HIV wasting syndrome Is this a current diagnosis for this admission?: Yes Plan: Efforts at controlling the patient's esophageal and abdominal pain will be made to affect improvement in her dietary intake. A nutritional consult will be obtained with the dietitian to aid in treating the patient's severe malnutrition. - Time Time Spent with patient: 25-34 minutes Smoking Cessation Education: 3 to 10 minutes Medications reviewed and adjusted accordingly: Yes Anticipated discharge: Home - Inpatient Certification Based on my medical assessment, after consideration of the patient's comorbidities, presenting symptoms, or acuity I expect that the services needed warrant INPATIENT care.: Yes I certify that my determination is in accordance with my understanding of Medicare's requirements for reasonable and necessary INPATIENT services [42 CFR 412.3e].: Yes Medical Necessity: Significant Comorbidiites Make Outpatient Treatment Too Risky, Need Close Monitoring Due to Risk of Patient Decompensation, Need For IV Fluids, Need For Continuous Telemetry Monitoring, Need for Pain Control, Need for IV Antibiotics, Need for Surgery, Risk of Complication if Not Cared For in Hospital, Risk of Diagnosis Which Will Require Inpatient Eval/Care/Monitoring
[2019-08-13] MEDS ORDERED: GLUCAGON,HUMAN RECOMB 1 MG INJ SUBCUT PRN ×2 (06:27→06:47)
[2019-08-13] MEDS ORDERED: DEXTROSE 40% GEL 15 GM TUBE PO PRN ×4 (06:27→06:47)
[2019-08-13] MEDS ORDERED: DEXTROSE 50%-WATER 25 GM/50 ML DISP.SYRIN IV PRN ×4 (06:27→06:47)
--- NOTE | 2019-08-13 06:59 | PDOC CONSULTATION ---
Consultation Consult Date: 08/13/19 Attending physician:: RICK ROCK Provider Consulted: EMELYN PITT Consult reason:: Esophagitis History of Present Illness Admission Date/PCP: 08/13/19 00:11 Patient complains of: Dysphasia History of Present Illness: ADRIANA NICHOLE is a 29 year old female [facility] to [facility] via [facility] complaining of failure to thrive, in addition, dysphasia epigastric pain. Patient has a history of AIDS, off antiviral therapy, history of hypertension now tachycardia. She is diagnosed with Graves' disease started on methimazole. Surgery was consulted for upper endoscopy, possible feeding tube. Of note patient has lost over 30 pounds in the last 18 months to 2 years although the exact timeframe is uncertain. Patient's last EGD by documentation was [address] Trujillo demonstrating Sarai esophagitis. Past Medical History Cardiac Medical History: Reports: Hypertension - preeclampsia during . 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 Denies: Cataracts Neurological Medical History: Denies: Multiple Sclerosis, Seizures Endocrine Medical History: Reports: Hyperthyroidism Denies: Diabetes Mellitus Type 1, Diabetes Mellitus Type 2, Hypothyroidism Renal/ Medical History: Denies: Chronic Kidney Disease, Nephrolithiasis Malignancy Medical History: Reports: None GI Medical History: Denies: Cirrhosis, Gastroesophageal Reflux Disease, Hepatitis, Other - HIV associated esophagitis Musculoskeltal Medical History: Denies: Arthritis, Gout Skin Medical History: Denies: Eczema, Psoriasis Psychiatric Medical History: Reports: Depression, General Anxiety Disorder, To bacco Dependency Denies: Alcohol Dependency, Substance Abuse Traumatic Medical History: Reports: None Hematology: Denies: Anemia, Bleeding Tendencies Infectious Medical History: Reports: HIV Past Surgical History Past Surgical History: Reports: None Social History Lives with: Friend Smoking Status: Current Every Day Smoker Cigarettes Packs Per Day: 1 Number of Years Smokin Last Time Smoked: 08/12/19 Frequency of Alcohol Use: Social Hx Recreational Drug Use: No Drugs: None Hx Prescription Drug Abuse: No - Advance Directive Resuscitation Status: Full Code Family History Family History: None, Other - HIV AIDS Parental Family History Reviewed: No Children Family History Reviewed: No Sibling(s) Family History Reviewed.: No Medication/Allergy Home Medications: Fluconazole [Diflucan] 200 mg PO DAILY #7 tablet 07/18/19 Omeprazole 40 mg PO DAILY #30 capsule. 07/18/19 Sucralfate [Carafate 1 gm Tablet] 1 gm PO ACHS #120 tablet 07/18/19 Tramadol HCl [Ultram] 50 mg PO Q8H PRN #15 tablet 07/18/19 Allergies/Adverse Reactions: No Known Allergies Allergy (Verified 07/18/19 18:25) Review of Systems ROS unobtainable: Due to mental status Constitutional: PRESENT: as per HPI Eyes: PRESENT: other - Wears glasses. ABSENT: visual disturbances Gastrointestinal: PRESENT: other - Patient having minimal stool output due to decreased p.o. intake Psychiatric: PRESENT: other - Emotionally labile Physical Exam Vital Signs: Temp Pulse Resp BP Pulse Ox 98.7 F 107 H 16 138/100 H 98 08/13/19 04:44 08/13/19 04:44 08/13/19 04:44 08/13/19 04:44 08/13/19 04:44 Intake & Output 08/11/19 08/12/19 08/13/19 06:59 06:59 06:59 Intake Total 2463 Balance 2463 Weight 30.2 kg General appearance: PRESENT: mild distress, thin, other - Cachectic [place] female Head exam: PRESENT: normocephalic Eye exam: PRESENT: other Mouth exam: PRESENT: dry mucosa - Glasses Neck exam: PRESENT: full ROM Respiratory exam: PRESENT: rhonchi Cardiovascular exam: PRESENT: tachycardia Pulses: PRESENT: normal carotid pulses, normal radial pulses, normal femoral pulses GI/Abdominal exam: PRESENT: other - Flat, hypoactive bowel sounds, no scars, no distention no tenderness Rectal exam: PRESENT: deferred Extremities exam: PRESENT: full ROM Musculoskeletal exam: PRESENT: full ROM Neurological exam: PRESENT: oriented to person, oriented to place, oriented to t pamela, oriented to situation Psychiatric exam: PRESENT: anxious Results Laboratory Results: 08/12/19 19:00 08/12/19 19:00 08/12/19 08/12/19 08/12/19 19:00 19:00 19:00 WBC 4.1 RBC 5.03 Hgb 12.0 Hct 35.9 L MCV 71 L MCH 23.9 L MCHC 33.5 RDW 13.8 Plt Count 115 L Seg Neutrophils % 64.6 Sodium 140.5 Potassium 3.8 Chloride 101 Carbon Dioxide 25 Anion Gap 15 BUN 34 H Creatinine 0.67 Est GFR ( Amer) > 60 Glucose 88 Calcium 9.6 Total Bilirubin 0.9 AST 59 H Alkaline Phosphatase 163 H Total Protein 8.4 H Albumin 4.2 TSH Cancelled Free T4 Cancelled Free T3 pg/mL Cancelled Urine Color Urine Appearance Urine pH Ur Specific [place] Urine Protein Urine Glucose (UA) Urine Ketones Urine Blood Urine Nitrite Ur Leukocyte Esterase Urine WBC (Auto) Urine RBC (Auto) 08/12/19 08/12/19 21:33 21:50 WBC RBC Hgb Hct MCV MCH MCHC RDW Plt Count Seg Neutrophils % Sodium Potassium Chloride Carbon Dioxide Anion Gap BUN Creatinine Est GFR ( Amer) Glucose Calcium Total Bilirubin AST Alkaline Phosphatase Total Protein Albumin TSH < 0.01 L Free T4 5.19 H Free T3 pg/mL 17.50 H Urine Color ADRIANNE Urine Appearance CLOUDY Urine pH 5.0 Ur Specific [place] 1.019 Urine Protein 100 H Urine Glucose (UA) NEGATIVE Urine Ketones TRACE H Urine Blood MODERATE H Urine Nitrite NEGATIVE Ur Leukocyte Esterase NEGATIVE Urine WBC (Auto) 10 Urine RBC (Auto) 5 08/12/19 19:00 Troponin I < 0.012 Assessment & Plan - Diagnosis (1) 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 Last EGD 3 years ago, clinically consistent with a candidiasis; appropriate candidate for endoscopic evaluation, feeding tube evaluation. Commendations: 1. We will keep patient n.p.o., IV fluids, and set her up for upper endoscopy, possible feeding tube week by surgicalist team today. (3) Thyrotoxicosis Qualifiers: Thyrotoxicosis type: unspecified thyrotoxicosis type Thyrotoxic crisis or storm presence: with thyrotoxic crisis or storm Qualified Code(s): E05.91 - Thyrotoxicosis, unspecified with thyrotoxic crisis or storm Is this a current diagnosis for this admission?: Yes (4) Dysphagia Qualifiers: Dysphagia type: other dysphagia Qualified Code(s): R13.19 - Other dysphagia (5) Dehydration Is this a current diagnosis for this admission?: Yes - Time Time Spent: 30 to 50 Minutes Smoking Cessation Education: over 10 minutes Medications reviewed and adjusted accordingly: Yes Anticipated discharge: Home - Inpatient Certification Based on my medical assessment, after consideration of the patient's comorbidities, presenting symptoms, or acuity I expect that the services needed warrant INPATIENT care.: Yes I certify that my determination is in accordance with my understanding of Medicare's requirements for reasonable and necessary INPATIENT services [42 CFR 412.3e].: Yes Medical Necessity: Need for Surgery
[2019-08-13 07:32] LABS: ANION GAP 7 (5-19); BLOOD UREA NITROGEN 24 mg/dL (7-20); CALCIUM 8.7 mg/dL (8.4-10.2); CARBON DIOXIDE 26 mmol/L (22-30); CHLORIDE 108 mmol/L (98-107); GLUCOSE 121 mg/dL (75-110); PHOSPHORUS 3.8 mg/dL (2.5-4.5); POTASSIUM 3.5 mmol/L (3.6-5.0)
[2019-08-13 07:44] LABS: FREE T4 (FREE THYROXINE) 5.62 ng/dL (0.78-2.19)
[2019-08-13 08:02] LABS: MEAN CORPUSCULAR HGB CONC 33.7 g/dL (32.0-36.0); MEAN CORPUSCULAR VOLUME 71 fl (80-97); RED BLOOD COUNT 3.94 10^6/uL (3.72-5.28); RED CELL DISTRIBUTION WIDTH 14.2 % (11.5-14.0); WHITE BLOOD COUNT 3.1 10^3/uL (4.0-10.5)
[2019-08-13 08:09] LABS: THYROID STIMULATING HORMONE < 0.01 uIU/mL (0.47-4.68)
[2019-08-13 08:11] LABS: HEMOGLOBIN 9.4 g/dL (12.0-15.5)
[2019-08-13 08:12] LABS: PLATELET COUNT 85 10^3/uL (150-450)
[2019-08-13] MEDS ORDERED: ONDANSETRON HCL INJ/PF 4 MG/2 ML SDV ONE (09:27)
[2019-08-13] MEDS ORDERED: DIPHENHYDRAMINE HCL 50 MG/ML VIAL ONE (09:27)
[2019-08-13] MEDS ORDERED: NALOXONE HCL INJ/PF 0.4 MG/1 ML SDV ONE (09:28)
[2019-08-13] MEDS ORDERED: GLUCAGON,HUMAN RECOMB 1 MG INJ ONE (09:28)
[2019-08-13] MEDS ORDERED: EPINEPHRINE INJ 1 MG/10 ML DISP.SYRIN ONE (09:28)
[2019-08-13] MEDS ORDERED: FLUMAZENIL INJ 0.5 MG/5 ML VIAL ONE (09:28)
[2019-08-13] MEDS: FENTANYL CITRATE INJ/PF 100 MCG/2 ML AMPUL ONE ×5 (09:57→10:15)
[2019-08-13] MEDS: MIDAZOLAM 2 MG/2 ML INJ ONE ×6 (09:57→10:17)
--- NOTE | 2019-08-13 10:32 | Operative Report ---
Nonrecallable Operative Report DATE OF SURGERY: 08/13/19 PREOPERATIVE DIAGNOSIS: dysphagia POSTOPERATIVE DIAGNOSIS: dysphagia OPERATION: esophagogastroduodenoscopy and peg tube placement SURGEON: MORENO MAXWELL ANESTHESIA: Moderate Sedation TISSUE REMOVED OR ALTERED: esophageal bx COMPLICATIONS: none ESTIMATED BLOOD LOSS: 0 INTRAOPERATIVE FINDINGS: candidia esophagitis PROCEDURE: Patient was brought to the endoscopy suit awake alert in stable condition placed on the endoscopy gurney. After appropriate timeout and site verification she was given IV sedation. The Olympus gastroscope was passed into the posterior pharynx and through the upper esophageal sphincters to the esophagus esophagus had multiple plaque areas of whitish appearing material consistent with candidiasis. The scope was passed into the proximal most stomach that appeared to be normal there is some mild distal gastritis and the scope was then passed through the pylorus into the duodenum which showed moderate duodenitis. Scope was slowly then withdrawn there was no evidence of any ulcers. As we came back through the GE junction there was a biopsy obtained of the distal esophagus that was sent to pathology. Scope was then removed. The left upper quadrant was then prepped and draped and 1% lidocaine plain was used to anesthetized the skin just below the left costal margin. Using 11 blade a small transverse incision was made approximately 1.5 cm long. The scope was then passed back into the mouth past the upper esophageal sphincters into the proximal stomach. Stomach was insufflated and confirmation with the light on the anterior abdominal wall was obtained. Through the incision we passed a 16-gauge needle and the wire was then passed into the stomach snared with the endoscope and pulled back out through the mouth. The wire was then attached to the upper cutaneous gastrostomy tube and it was pulled back down through the esophagus and out the anterior abdominal wall incision. The PEG buttress was noted up against the anterior abdominal wall. The scope was then passed back into the mouth to confirm good placement of the buttress up against the gastric wall. The buttress attachments was then passed down the PEG tube to sit up against the anterior abdominal wall from the outside. The incision was cleansed again and antibiotic ointment was applied. This completed the procedure estimated blood loss was negligible patient was then transferred back to recovery in stable condition
[2019-08-13] MEDS: PANTOPRAZOLE SODIUM 40 MG VIAL IV SCH ×2 (11:21→21:56)
[2019-08-13] MEDS: SUCRALFATE 1 GM TABLET PO SCH ×4 (12:02→21:56)
[2019-08-13] MEDS: METOCLOPRAMIDE HCL ORAL SOLN 10 MG/10 ML UDCUP PO SCH ×4 (12:03→21:56)
[2019-08-13] MEDS: DOCUSATE SODIUM 100 MG/10 ML UDC PO SCH ×2 (12:12→17:26)
[2019-08-13] MEDS ORDERED: LISINOPRIL 10 MG TABLET PO ONE (17:30)
[2019-08-13] MEDS ORDERED: METOPROLOL TARTRATE 25 MG TABLET PO ONE (17:30)
--- NOTE | 2019-08-13 18:27 | PDOC PROGRESS REPORT ---
Subjective Progress Note for:: 08/13/19 Subjective:: No adverse events overnight. She had an EGD that showed extensive esophageal candidiasis, along with gastritis and duodenitis. She had a fever today. I looked back in her old labs and it looks like about a month ago she had a CD4 count that was at 227 and I know she has not taken her medication since then. Reason For Visit: UNCONTROLLED HYPERTHYROIDISM,HIV AIDS,HIV Physical Exam Vital Signs: Temp Pulse Resp BP Pulse Ox 100.6 F H 115 H 20 148/100 H 98 08/13/19 14:40 08/13/19 14:40 08/13/19 10:50 08/13/19 14:40 08/13/19 14:40 Intake & Output 08/12/19 08/13/19 08/14/19 06:59 06:59 06:59 Intake Total 2463 300 Balance 2463 300 Weight 30.2 kg General appearance: PRESENT: no acute distress, cooperative, disheveled, thin Throat exam: PRESENT: tonsillar exudate Respiratory exam: PRESENT: clear to auscultation ty, symmetrical, unlabored, other - A very weak dry cough. ABSENT: accessory muscle use, chest wall tenderness, crackles, prolonged expiratory phas, retraction, tachypnea, wheezes Cardiovascular exam: PRESENT: tachycardia Pulses: PRESENT: normal carotid pulses Vascular exam: PRESENT: normal capillary refill GI/Abdominal exam: PRESENT: hypoactive bowel sounds, soft, other - New PEG tube in place, site is unremarkable. ABSENT: distended, guarding, rebound, tenderness Extremities exam: ABSENT: clubbing, pedal edema Musculoskeletal exam: PRESENT: other - Diffuse muscle wasting. ABSENT: deformity Neurological exam: PRESENT: awake - Drowsy but arousable, oriented to person, oriented to place, oriented to situation Skin exam: PRESENT: dry, warm Results Laboratory Results: 08/13/19 06:28 08/13/19 06:28 08/12/19 08/12/19 08/12/19 19:00 19:00 19:00 WBC 4.1 RBC 5.03 Hgb 12.0 Hct 35.9 L MCV 71 L MCH 23.9 L MCHC 33.5 RDW 13.8 Plt Count 115 L Seg Neutrophils % 64.6 Sodium 140.5 Potassium 3.8 Chloride 101 Carbon Dioxide 25 Anion Gap 15 BUN 34 H Creatinine 0.67 Est GFR ( Amer) > 60 Glucose 88 Calcium 9.6 Phosphorus Magnesium Total Bilirubin 0.9 AST 59 H Alkaline Phosphatase 163 H Total Protein 8.4 H Albumin 4.2 TSH Cancelled Free T4 Cancelled Free T3 pg/mL Cancelled Urine Color Urine Appearance Urine pH Ur Specific [place] Urine Protein Urine Glucose (UA) Urine Ketones Urine Blood Urine Nitrite Ur Leukocyte Esterase Urine WBC (Auto) Urine RBC (Auto) 08/12/19 08/12/19 08/13/19 21:33 21:50 06:28 WBC 3.1 L RBC 3.94 Hgb 9.4 L D Hct 28.0 L MCV 71 L MCH 24.0 L MCHC 33.7 RDW 14.2 H Plt Count 85 L Seg Neutrophils % Sodium Potassium Chloride Carbon Dioxide Anion Gap BUN Creatinine Est GFR ( Amer) Glucose Calcium Phosphorus Magnesium Total Bilirubin AST Alkaline Phosphatase Total Protein Albumin TSH < 0.01 L Free T4 5.19 H Free T3 pg/mL 17.50 H Urine Color ADRIANNE Urine Appearance CLOUDY Urine pH 5.0 Ur Specific [place] 1.019 Urine Protein 100 H Urine Glucose (UA) NEGATIVE Urine Ketones TRACE H Urine Blood MODERATE H Urine Nitrite NEGATIVE Ur Leukocyte Esterase NEGATIVE Urine WBC (Auto) 10 Urine RBC (Auto) 5 08/13/19 08/13/19 06:28 06:28 WBC RBC Hgb Hct MCV MCH MCHC RDW Plt Count Seg Neutrophils % Sodium 140.7 Potassium 3.5 L Chloride 108 H Carbon Dioxide 26 Anion Gap 7 BUN 24 H Creatinine 0.46 L Est GFR ( Amer) > 60 Glucose 121 H Calcium 8.7 Phosphorus 3.8 Magnesium 1.6 Total Bilirubin AST Alkaline Phosphatase Total Protein Albumin TSH < 0.01 L Free T4 5.62 H Free T3 pg/mL 16.90 H Urine Color Urine Appearance Urine pH Ur Specific [place] Urine Protein Urine Glucose (UA) Urine Ketones Urine Blood Urine Nitrite Ur Leukocyte Esterase Urine WBC (Auto) Urine RBC (Auto) 08/12/19 19:00 Troponin I < 0.012 Assessment and Plan - Diagnosis (1) 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 She is on Diflucan for esophageal candidiasis, but because of her recurrent fevers I am also going to cover her empirically for pneumocystis pneumonia. I started Bactrim DS 1 tab 3 times a day. I have also ordered an infectious disease consultation. Some labs were drawn earlier in the hosp italization and are send out labs and still pending. (2) Dehydration Is this a current diagnosis for this admission?: Yes Plan: Resolved with IV fluids (3) HIV wasting syndrome Is this a current diagnosis for this admission?: Yes Plan: PEG tube was placed today because it hurts too much to swallow food. She can swallow some liquids and some pills but was consulted dietary for tube feeding. (4) Thyrotoxicosis Qualifiers: Thyrotoxicosis type: unspecified thyrotoxicosis type Thyrotoxic crisis or storm presence: with thyrotoxic crisis or storm Qualified Code(s): E05.91 - Thyrotoxicosis, unspecified with thyrotoxic crisis or storm Is this a current diagnosis for this admission?: Yes Plan: Currently on Tapazole. Will also have her on a beta-mirian 3 times a day. I gave her an extra dose today along with some lisinopril for tachycardia and hypertension. (5) Esophageal candidiasis Is this a current diagnosis for this admission?: Yes Plan: On IV Diflucan - Time Time Spent with patient: 25-34 minutes
[2019-08-13] MEDS: SULFAMETHOXAZOLE/TRIMETHOPRIM 800-160 MG TABLET PO SCH ×2 (19:45→21:57)
[2019-08-13 20:16] LABS: ARTERIAL BLOOD BASE EXCESS 1.9 mmol/L; ARTERIAL BLOOD H2CO3 1.23 mmol/L (1.05-1.35); ARTERIAL BLOOD HCO3 26.4 mmol/L (20-24); ARTERIAL BLOOD O2 SATURATION 97.7 % (94-98); ARTERIAL BLOOD PCO2 40.9 mmHg (35-45); ARTERIAL BLOOD PH 7.43 (7.35-7.45); ARTERIAL BLOOD PO2 100.3 mmHg (80-100); ARTERIAL BLOOD TOTAL CO2 27.7 mmol/L (21-25)
[2019-08-13 20:21] LABS: ARTERIAL BLOOD FIO2 21%
[2019-08-13] MEDS: FLUCONAZOLE 200 MG/NS RTU 200 MG/100 ML RTUPB IV SCH (21:56)
[2019-08-14] MEDS: HYDRALAZINE HCL INJ/PF 20 MG/1 ML SDV IV PRN (03:08)
[2019-08-14] MEDS: HEPARIN SOD (PORCINE) 5,000 UNIT/ML 1 ML VIAL SUBCUT SCH ×3 (05:07→22:40)
[2019-08-14] MEDS: METOPROLOL TARTRATE 50 MG TABLET PO SCH ×3 (05:27→22:39)
[2019-08-14] MEDS: SULFAMETHOXAZOLE/TRIMETHOPRIM 800-160 MG TABLET PO SCH ×3 (05:27→22:39)
[2019-08-14] MEDS: METHIMAZOLE 5 MG TABLET PO SCH ×3 (05:27→22:39)
[2019-08-14] MEDS: DEXTROSE 5%-LACTATED RINGERS 1,000 ML IV PRN (06:11)
[2019-08-14] MEDS: METOCLOPRAMIDE HCL ORAL SOLN 10 MG/10 ML UDCUP PO SCH ×4 (08:03→22:38)
[2019-08-14] MEDS: SUCRALFATE 1 GM TABLET PO SCH ×5 (08:04→22:38)
--- NOTE | 2019-08-14 08:05 | PDOC PROGRESS REPORT ---
Subjective Progress Note for:: 08/14/19 Reason For Visit: UNCONTROLLED HYPERTHYROIDISM,HIV AIDS,HIV Physical Exam Vital Signs: Temp Pulse Resp BP Pulse Ox 98.3 F 105 H 19 130/87 H 96 08/14/19 05:00 08/14/19 05:00 08/14/19 05:00 08/14/19 05:00 08/14/19 05:00 Intake & Output 08/13/19 08/14/19 08/15/19 06:59 06:59 06:59 Intake Total 2463 1189 Balance 2463 1189 Weight 30.2 kg 30.3 kg General appearance: PRESENT: no acute distress Head exam: PRESENT: normocephalic Eye exam: PRESENT: EOMI Ear exam: PRESENT: TM's normal bilaterally Mouth exam: PRESENT: moist Neck exam: PRESENT: full ROM Respiratory exam: PRESENT: clear to auscultation ty Cardiovascular exam: PRESENT: RRR Pulses: PRESENT: normal radial pulses, normal femoral pulses Vascular exam: PRESENT: normal capillary refill GI/Abdominal exam: PRESENT: soft - gtube site clean, dry Rectal exam: PRESENT: deferred Extremities exam: PRESENT: full ROM Musculoskeletal exam: PRESENT: full ROM Neurological exam: PRESENT: alert, awake, oriented to person, oriented to place Psychiatric exam: PRESENT: appropriate affect Skin exam: PRESENT: dry Results Laboratory Results: 08/13/19 06:28 08/13/19 06:28 08/13/19 08/13/19 08/13/19 06:28 06:28 20:04 WBC 3.1 L RBC 3.94 Hgb 9.4 L D Hct 28.0 L MCV 71 L MCH 24.0 L MCHC 33.7 RDW 14.2 H Plt Count 85 L Carbonic Acid 1.23 HCO3/H2CO3 Ratio 21:1 ABG pH 7.43 ABG pCO2 40.9 ABG pO2 100.3 H ABG HCO3 26.4 H ABG O2 Saturation 97.7 ABG Base Excess 1.9 FiO2 21% TSH < 0.01 L Free T4 5.62 H Free T3 pg/mL 16.90 H 08/12/19 19:00 Troponin I < 0.012 Assessment & Plan - Plan Summary Plan Summary: s/p peg placement and esoph bx yesterday g-tube functioning well esoph bx pending now on rx for esoph candidiasis ok to advance g-tube feeds per dietary surgery will sign off now please reconsult as necessary.
[2019-08-14 08:55] LABS: ANION GAP 6 (5-19); BLOOD UREA NITROGEN 13 mg/dL (7-20); CALCIUM 8.3 mg/dL (8.4-10.2); CARBON DIOXIDE 26 mmol/L (22-30); CHLORIDE 107 mmol/L (98-107); GLUCOSE 116 mg/dL (75-110); PHOSPHORUS 3.3 mg/dL (2.5-4.5)
[2019-08-14 09:00] LABS: HEMATOCRIT 25.1 % (36.0-47.0); HEMOGLOBIN 8.5 g/dL (12.0-15.5); MEAN CORPUSCULAR HEMOGLOBIN 24.2 pg (27.0-33.4); MEAN CORPUSCULAR VOLUME 71 fl (80-97); POTASSIUM 2.7 mmol/L (3.6-5.0); RED BLOOD COUNT 3.52 10^6/uL (3.72-5.28); RED CELL DISTRIBUTION WIDTH 13.7 % (11.5-14.0); WHITE BLOOD COUNT 3.3 10^3/uL (4.0-10.5)
[2019-08-14 09:37] LABS: THYROID STIMULATING HORMONE < 0.01 uIU/mL (0.47-4.68)
[2019-08-14 09:43] LABS: PLATELET COUNT 76 10^3/uL (150-450)
[2019-08-14] MEDS: DOCUSATE SODIUM 100 MG/10 ML UDC PO SCH ×2 (10:13→18:08)
[2019-08-14] MEDS: PANTOPRAZOLE SODIUM 40 MG VIAL IV SCH ×2 (10:14→22:39)
[2019-08-14] MEDS: MORPHINE SULFATE 10 MG/ML INJ IV PRN ×2 (10:27→17:26)
[2019-08-14] MEDS: MAGNESIUM SULFATE/D5W 1 GM/100 ML RTUPB IV SCH ×2 (11:22→12:27)
[2019-08-14] MEDS: POTASSI CL 20 MEQ/50 ML RIDER 20 MEQ/50 ML RTUPB IV SCH ×3 (14:32→22:10)
--- NOTE | 2019-08-14 16:56 | Progress Note ---
Provider Note Provider Note: ID Consult Note Asked to review chart. Pt not seen or examined. Ms. Gurrola is a 29-year-old underweight woman with HIV/AIDS and hyperthyroidism due to Graves disease. She was admitted to [facility] yesterday 08/13/19 after presenting with complaint of epigastric pain, heartburn, anorexia, weight loss over 2 years, and several weeks of noncompliance with her medications due to difficulty swallowing. She has previously been given Diflucan, omeprazole, and carafate with improvement for a nonconfirmed diagnosis of Sarai esophagitis. During this visit, she was found to have tachycardia, hypertension. She also had a tempreature of 100.6 and 100.7 F once yesterday and again today. She has 100% oxygen saturation on room air. On exam, lungs were CTAB, moderate epigastric tenderness was appreciated on palpation, dry oral mucosa was present, supple neck, no focal deficits or skin lesions noted. She was found to have thyrotoxicosis. Labs also included some cytopenias (WBC 3k, microcytic anemia, plt count in the 80s), mildly increased alkaline phosphatase and AST. Most recent prior CD4 count was 227 on Jul 18 2019 and CD4 percentage of 23%. Outpatient HIV medications are Prezista and Genvoya. During this admission, Surgery was consulted for dysphagia; she underwent EGD on 08/13/19 with multiple areas of whitish plaques seen that were appreciated as consistent with candidiasis; also present was mild distal gastritis and moderate duodenitis without ulcers. A PEG tube was placed. She has Bactrim 1 tab PO TID ordered as well as IV fluconazole 200 mg daily. EKG this admission QTc 467. Impression/Recommendations possible Sarai esophagitis - with HIV/AIDS patients most cases occur when CD4 count <200; hers was 227 last month. Often occurs together with thrush, which was not explicitly described on exam, but absence of thrush does not preclude the diagnosis of Sarai esophag itis. Had white mucosal plaque like lesions seen; no confirmatory presence of yeasts and pseudohyphae on biopsy, not sure what area was biopsied in relation to the lesions seen - Would switch fluconazole to PO or per tube. - usually if Sarai esophagitis, improvement is noted within about 4 days; if so continue to complete 14 days. HIV/AIDS - hx of AIDS with CD4 count <50 or 6% in 2016; improvement since then, although recently the patient has been reported as unable to take PO medications. - Suggest arranging for close follow up as an outpatient by her HIV care provider to restart antiretroviral medication or contacting his or her office to seek recommenations regarding the current regimen. Home medications are listed as 1 tab Prezista and 1 tab Genvoya with food daily. Would not give Prezista without Genvoya or vice versa. Prezista 1 tab PO 800 mg can be crushed and given per tube. Spliting/crushing Genvoya is not recommended by the prepress specialist, but other fixed dose tablets with similar components can be done without much impact on pharmacokinetics. Pt's outpatient HIV care provider would be in the best position to help determine Whether doing this represents the best option for the patient (vs switching to another regimen). Opportunistic infection prophylaxis - If the patient has thrush or sarai esophagitis, this is a biological marker that she is at increased risk for pneumocystis pneumonia and would benefit from prophylaxis. For this Bactrim suspension (40 mg/200 mg per 5 mL) could be given as 10 mL daily or 1 single-strength tablet daily. Ajay Mercado MD [facility] Infectious Diseases pager [phone]
[2019-08-14] MEDS ORDERED: NORMAL SALINE 1000 ML 1,000 ML IV PRN (17:28)
--- NOTE | 2019-08-14 18:09 | PDOC PROGRESS REPORT ---
Subjective Progress Note for:: 08/14/19 Subjective:: No adverse events overnight. Patient still very lethargic. She is not hypoxic. Still has a fever intermittently. Reason For Visit: UNCONTROLLED HYPERTHYROIDISM,HIV AIDS,HIV Physical Exam Vital Signs: Temp Pulse Resp BP Pulse Ox 100.7 F H 101 H 14 129/89 H 99 08/14/19 15:08 08/14/19 15:08 08/14/19 15:08 08/14/19 15:08 08/14/19 15:08 Intake & Output 08/13/19 08/14/19 08/15/19 06:59 06:59 06:59 Intake Total 2463 1189 500 Balance 2463 1189 500 Weight 30.2 kg 30.3 kg General appearance: PRESENT: no acute distress, cooperative, disheveled, thin Throat exam: PRESENT: tonsillar exudate Respiratory exam: PRESENT: clear to auscultation ty, symmetrical, unlabored, other - A very weak dry cough. ABSENT: accessory muscle use, chest wall tenderness, crackles, prolonged expiratory phas, retraction, tachypnea, wheezes Cardiovascular exam: PRESENT: tachycardia Pulses: PRESENT: normal carotid pulses Vascular exam: PRESENT: normal capillary refill GI/Abdominal exam: PRESENT: hypoactive bowel sounds, soft, other - New PEG tube in place, site is unremarkable. ABSENT: distended, guarding, rebound, tenderness Extremities exam: ABSENT: clubbing, pedal edema Musculoskeletal exam: PRESENT: other - Diffuse muscle wasting. ABSENT: deformity Neurological exam: PRESENT: awake - Drowsy but arousable, oriented to person, oriented to place, oriented to situation Skin exam: PRESENT: dry, warm Results Laboratory Results: 08/14/19 07:57 08/14/19 07:57 08/13/19 08/14/19 08/14/19 20:04 07:57 07:57 WBC 3.3 L RBC 3.52 L Hgb 8.5 L Hct 25.1 L MCV 71 L MCH 24.2 L MCHC 34.0 RDW 13.7 Plt Count 76 L Carbonic Acid 1.23 HCO3/H2CO3 Ratio 21:1 ABG pH 7.43 ABG pCO2 40.9 ABG pO2 100.3 H ABG HCO3 26.4 H ABG O2 Saturation 97.7 ABG Base Excess 1.9 FiO2 21% Sodium 139.4 Potassium 2.7 L* Chloride 107 Carbon Dioxide 26 Anion Gap 6 BUN 13 Creatinine 0.45 L Est GFR ( Amer) > 60 Glucose 116 H Calcium 8.3 L Phosphorus 3.3 Magnesium 1.3 L TSH Free T4 Free T3 pg/mL 08/14/19 07:57 WBC RBC Hgb Hct MCV MCH MCHC RDW Plt Count Carbonic Acid HCO3/H2CO3 Ratio ABG pH ABG pCO2 ABG pO2 ABG HCO3 ABG O2 Saturation ABG Base Excess FiO2 Sodium Potassium Chloride Carbon Dioxide Anion Gap BUN Creatinine Est GFR ( Amer) Glucose Calcium Phosphorus Magnesium TSH < 0.01 L Free T4 5.70 H Free T3 pg/mL 12.70 H 08/12/19 19:00 Troponin I < 0.012 Assessment and Plan - Diagnosis (1) 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 Mercado was consulted, appreciate her input and recommendations. We will get a CD4 profile to assess her current immune status. Waiting for some send out labs to come back to help me determine which quantitative and qualitative test to order. We will need to make sure that she is got close follow-up with infectious disease, be it her previous provider or with someone new. (2) Dehydration Is this a current diagnosis for this admission?: Yes Plan: Resolved with IV fluids (3) HIV wasting syndrome Is this a current diagnosis for this admission?: Yes Plan: PEG tube was placed because it hurts too much to swallow food. She can swallow some liquids and some pills but was consulted dietary for tube feeding. Recommendations are noted and tube feeding has been restarted. She is at risk for refeeding syndrome, and we are checking labs on her to avoid that scenario. (4) Thyrotoxicosis Qualifiers: Thyrotoxicosis type: unspecified thyrotoxicosis type Thyrotoxic crisis or storm presence: with thyrotoxic crisis or storm Qualified Code(s): E05.91 - Thyrotoxicosis, unspecified with thyrotoxic crisis or storm Is this a current diagnosis for this admission?: Yes Plan: Free T3 seems to be coming down now on Tapazole. Blood pressure and heart rate have improved some. We also continue her beta-mirian. (5) Esophageal candidiasis Is this a current diagnosis for this admission?: Yes Plan: We will continue with Diflucan and await the esophageal biopsy. - Time Time Spent with patient: 25-34 minutes
[2019-08-14] MEDS ORDERED: POTASSIUM CHLORIDE 20 MEQ/50 ML RTU IV ONE (21:30)
[2019-08-14] MEDS: FLUCONAZOLE 200 MG/NS RTU 200 MG/100 ML RTUPB IV SCH (22:38)
[2019-08-15 04:48] LABS: HEMATOCRIT 24.2 % (36.0-47.0); HEMOGLOBIN 8.3 g/dL (12.0-15.5); MEAN CORPUSCULAR HEMOGLOBIN 24.3 pg (27.0-33.4); MEAN CORPUSCULAR HGB CONC 34.2 g/dL (32.0-36.0); MEAN CORPUSCULAR VOLUME 71 fl (80-97); RED BLOOD COUNT 3.41 10^6/uL (3.72-5.28); RED CELL DISTRIBUTION WIDTH 13.7 % (11.5-14.0); WHITE BLOOD COUNT 3.9 10^3/uL (4.0-10.5)
[2019-08-15 05:01] LABS: ANION GAP 5 (5-19); BLOOD UREA NITROGEN 11 mg/dL (7-20); CALCIUM 8.1 mg/dL (8.4-10.2); CARBON DIOXIDE 23 mmol/L (22-30); CHLORIDE 110 mmol/L (98-107); GLUCOSE 91 mg/dL (75-110); PHOSPHORUS 3.2 mg/dL (2.5-4.5)
[2019-08-15 05:13] LABS: PLATELET COUNT 68 10^3/uL (150-450)
[2019-08-15 05:17] LABS: FREE T4 (FREE THYROXINE) 4.77 ng/dL (0.78-2.19)
[2019-08-15 05:20] LABS: POTASSIUM 3.8 mmol/L (3.6-5.0)
[2019-08-15 05:32] LABS: THYROID STIMULATING HORMONE < 0.01 uIU/mL (0.47-4.68)
[2019-08-15] MEDS: HEPARIN SOD (PORCINE) 5,000 UNIT/ML 1 ML VIAL SUBCUT SCH ×3 (05:37→23:35)
[2019-08-15] MEDS: SULFAMETHOXAZOLE/TRIMETHOPRIM 800-160 MG TABLET PO SCH (05:44)
[2019-08-15] MEDS: METHIMAZOLE 5 MG TABLET PO SCH ×3 (05:44→23:53)
[2019-08-15] MEDS: METOPROLOL TARTRATE 50 MG TABLET PO SCH ×3 (05:45→23:54)
[2019-08-15] MEDS ORDERED: ACETAMINOPHEN SOLN 325 MG/10.15 ML UDCUP PO PRN (07:19)
[2019-08-15] MEDS: SUCRALFATE 1 GM TABLET PO SCH ×4 (09:45→23:54)
[2019-08-15] MEDS: METOCLOPRAMIDE HCL ORAL SOLN 10 MG/10 ML UDCUP PO SCH ×4 (09:54→23:53)
[2019-08-15] MEDS: PANTOPRAZOLE SODIUM 40 MG VIAL IV SCH ×2 (09:55→23:55)
[2019-08-15] MEDS: DOCUSATE SODIUM 100 MG/10 ML UDC PO SCH ×3 (09:55→17:28)
[2019-08-15] MEDS: MORPHINE SULFATE 10 MG/ML INJ IV PRN (10:20)
[2019-08-15] MEDS: SULFAMETHOXAZOLE/TRIMETHOPRIM 800-160 MG/20 ML UDCUP PO SCH ×2 (13:49→23:55)
[2019-08-15] MEDS: NICOTINE 7 MG/24 HR PATCH.TD24 TD SCH (13:50)
[2019-08-15] MEDS ORDERED: PREZISTA 800 MG PO SCH (15:30)
[2019-08-15] MEDS ORDERED: GENVOYA PO SCH (15:30)
[2019-08-15] MEDS: PROMETHAZINE HCL INJ 25 MG/1 ML VIAL IV PRN (16:01)
--- NOTE | 2019-08-15 17:46 | PDOC PROGRESS REPORT ---
Subjective Progress Note for:: 08/15/19 Subjective:: No adverse events overnight. No new complaints. Heart rate and blood pressure slowly improving. She is more alert today. She is got out of bed a couple of times today. Tolerating her tube feeds thus far. Reason For Visit: UNCONTROLLED HYPERTHYROIDISM,HIV AIDS,HIV Physical Exam Vital Signs: Temp Pulse Resp BP Pulse Ox 98.9 F 105 H 14 122/93 H 97 08/15/19 15:26 08/15/19 15:26 08/15/19 15:26 08/15/19 15:26 08/15/19 15:26 Intake & Output 08/14/19 08/15/19 08/16/19 06:59 06:59 06:59 Intake Total 1189 1886 500 Balance 1189 1886 500 Weight 30.3 kg 31.1 kg General appearance: PRESENT: no acute distress, cooperative, disheveled, thin Throat exam: PRESENT: tonsillar exudate Respiratory exam: PRESENT: clear to auscultation ty, symmetrical, unlabored, other - A very weak dry cough. ABSENT: accessory muscle use, chest wall tenderness, crackles, prolonged expiratory phas, retraction, tachypnea, wheezes Cardiovascular exam: PRESENT: tachycardia Pulses: PRESENT: normal carotid pulses Vascular exam: PRESENT: normal capillary refill GI/Abdominal exam: PRESENT: hypoactive bowel sounds, soft, other - New PEG tube in place, site is unremarkable. ABSENT: distended, guarding, rebound, tenderness Extremities exam: ABSENT: clubbing, pedal edema Musculoskeletal exam: PRESENT: other - Diffuse muscle wasting. ABSENT: deformity Neurological exam: PRESENT: awake, oriented to person, oriented to place, oriented to situation Skin exam: PRESENT: dry, warm Results Laboratory Results: 08/15/19 04:29 08/15/19 04:29 08/15/19 08/15/19 08/15/19 04:29 04:29 04:29 WBC 3.9 L RBC 3.41 L Hgb 8.3 L Hct 24.2 L MCV 71 L MCH 24.3 L MCHC 34.2 RDW 13.7 Plt Count 68 L Sodium 138.4 Potassium 3.8 D Chloride 110 H Carbon Dioxide 23 Anion Gap 5 BUN 11 Creatinine 0.43 L Est GFR ( Amer) > 60 Glucose 91 Calcium 8.1 L Phosphorus 3.2 Magnesium 1.8 TSH < 0.01 L Free T4 4.77 H Free T3 pg/mL 10.20 H 08/12/19 19:00 Troponin I < 0.012 Assessment and Plan - Diagnosis (1) 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 Mercado was consulted, appreciate her input and recommendations. We will get a CD4 profile to assess her current immune status. Waiting for some send out labs to come back to help me determine which quantitative and qualitative test to order. We will need to make sure that she is got close follow-up with infectious disease, be it her previous provider or with someone new. Her sister brought in her antiretrovirals, but they were over a year old, so rather than start medications that may not be effective, we decided to hold off until she can follow-up outpatient with infectious disease. Also, because of her fever and her cough and some coarse breath sounds a few days ago, I decided to treat her empirically for PCP pneumonia with a 21-day course of Bactrim, and af terwards she will revert to a prophylaxis dose. (2) Dehydration Is this a current diagnosis for this admission?: Yes Plan: Resolved with IV fluids (3) HIV wasting syndrome Is this a current diagnosis for this admission?: Yes Plan: PEG tube was placed because it hurts too much to swallow food. She can swallow some liquids and some pills but was consulted dietary for tube feeding. Recommendations are noted and tube feeding has been restarted. She is at risk for refeeding syndrome, and we are checking labs on her to avoid that scenario. (4) Thyrotoxicosis Qualifiers: Thyrotoxicosis type: unspecified thyrotoxicosis type Thyrotoxic crisis or storm presence: with thyrotoxic crisis or storm Qualified Code(s): E05.91 - Thyrotoxicosis, unspecified with thyrotoxic crisis or storm Is this a current diagnosis for this admission?: Yes Plan: Free T3 seems to be coming down now on Tapazole. Blood pressure and heart rate have improved some. We also continue her beta-mirian. (5) Esophageal candidiasis Is this a current diagnosis for this admission?: Yes Plan: We will continue with Diflucan and await the esophageal biopsy. - Time Time Spent with patient: 25-34 minutes
[2019-08-15] MEDS: NYSTATIN/DEXAMETH/DIPHEN SUSP 120 ML PO SCH ×2 (18:04→23:54)
[2019-08-15] MEDS: FLUCONAZOLE 100 MG TABLET PO SCH (23:53)
[2019-08-16] MEDS: HYDRALAZINE HCL INJ/PF 20 MG/1 ML SDV IV PRN (00:08)
[2019-08-16 05:07] LABS: PHOSPHORUS 3.2 mg/dL (2.5-4.5); POTASSIUM 3.9 mmol/L (3.6-5.0)
[2019-08-16] MEDS: HEPARIN SOD (PORCINE) 5,000 UNIT/ML 1 ML VIAL SUBCUT SCH ×3 (06:20→22:00)
[2019-08-16] MEDS: METHIMAZOLE 5 MG TABLET PO SCH ×3 (06:31→22:17)
[2019-08-16] MEDS: SULFAMETHOXAZOLE/TRIMETHOPRIM 800-160 MG/20 ML UDCUP PO SCH ×3 (06:31→22:19)
[2019-08-16] MEDS: METOPROLOL TARTRATE 50 MG TABLET PO SCH ×3 (06:32→22:17)
[2019-08-16] MEDS: DOCUSATE SODIUM 100 MG/10 ML UDC PO SCH ×2 (09:55→18:59)
[2019-08-16] MEDS: NICOTINE 7 MG/24 HR PATCH.TD24 TD SCH (09:55)
[2019-08-16] MEDS: METOCLOPRAMIDE HCL ORAL SOLN 10 MG/10 ML UDCUP PO SCH ×4 (09:55→22:19)
[2019-08-16] MEDS: NYSTATIN/DEXAMETH/DIPHEN SUSP 120 ML PO SCH ×4 (09:56→22:19)
[2019-08-16] MEDS: PANTOPRAZOLE SODIUM 40 MG VIAL IV SCH ×2 (09:56→22:20)
[2019-08-16] MEDS: SUCRALFATE 1 GM TABLET PO SCH ×4 (09:57→22:19)
[2019-08-16] MEDS ORDERED: (PENDING PHARMACY ID) (Darunavir Ethanolate [Prezista] 800 MG) PO SCH (12:05)
[2019-08-16] MEDS ORDERED: [UNRECOGNIZED DRUG - OTHER] PO SCH (12:05)
--- NOTE | 2019-08-16 17:08 | PDOC PROGRESS REPORT ---
Subjective Progress Note for:: 08/16/19 Subjective:: No adverse events overnight. No new complaints. Still little hypertensive at times but the tachycardia is getting better. Her energy level is getting better and she is tolerating the increased rate of her tube feeds. No fevers. Reason For Visit: UNCONTROLLED HYPERTHYROIDISM,HIV AIDS,HIV Physical Exam Vital Signs: Temp Pulse Resp BP Pulse Ox 98.7 F 104 H 18 141/102 H 98 08/16/19 15:50 08/16/19 15:50 08/16/19 15:50 08/16/19 15:50 08/16/19 15:50 Intake & Output 08/15/19 08/16/19 08/17/19 06:59 06:59 06:59 Intake Total 1886 618 Output Total 550 1000 Balance 1886 68 -1000 Weight 31.1 kg 30.2 kg General appearance: PRESENT: no acute distress, cooperative, disheveled, thin Throat exam: PRESENT: tonsillar exudate Respiratory exam: PRESENT: clear to auscultation ty, symmetrical, unlabored, other - A very weak dry cough. ABSENT: accessory muscle use, chest wall tenderness, crackles, prolonged expiratory phas, retraction, tachypnea, wheezes Cardiovascular exam: PRESENT: tachycardia Pulses: PRESENT: normal carotid pulses Vascular exam: PRESENT: normal capillary refill GI/Abdominal exam: PRESENT: hypoactive bowel sounds, soft, other - New PEG tube in place, site is unremarkable. ABSENT: distended, guarding, rebound, tenderness Extremities exam: ABSENT: clubbing, pedal edema Musculoskeletal exam: PRESENT: other - Diffuse muscle wasting. 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 Mercado was consulted, appreciate her input and recommendations. CD4 count is 22. She is on Diflucan for her nasty esophageal candidiasis. We will need to make sure that she is got close follow-up with infectious disease, be it her previous provider or with someone new. Her sister brought in her antiretrovirals, but they were over a year old, so rather than start medications that may not be effective, we decided to hold off until she can follow-up outpatient with infectious disease. Also, because of her fever and her cough and some coarse breath sounds a few days ago, I decided to treat her empirically for PCP pneumonia with a 21-day course of Bactrim, and afterwards she will revert to a prophylaxis dose. (2) Dehydration Is this a current diagnosis for this admission?: Yes Plan: Resolved with IV fluids (3) HIV wasting syndrome Is this a current diagnosis for this admission?: Yes Plan: PEG tube was placed because it hurts too much to swallow food. She can swallow some liquids and some pills but was consulted dietary for tube feeding. Recommendations are noted and tube feeding has been restarted. She is at risk for refeeding syndrome, and we are checking labs on her to avoid that scenario. (4) Thyrotoxicosis Qualifiers: Thyrotoxicosis type: unspecified thyrotoxicosis type Thyrotoxic crisis or storm presence: with thyrotoxic crisis or storm Qualified Code(s): E05.91 - Thyrotoxicosis, unspecified with thyrotoxic crisis or storm Is this a current diagnosis for this admission?: Yes Plan: Free T3 seems to be coming down now on Tapazole. Blood pressure and heart rate have improved some. We also continue her beta-mirian. (5) Esophageal candidiasis Is this a current diagnosis for this admission?: Yes Plan: We will continue with Diflucan and await the esophageal biopsy. (6) Moderate protein-calorie malnutrition Is this a current diagnosis for this admission?: Yes - Time Time Spent with patient: 15-24 minutes
[2019-08-16] MEDS: FLUCONAZOLE 100 MG TABLET PO SCH (22:19)
[2019-08-17 04:12] LABS: C DIFFICILE GDH NEGATIVE (NEGATIVE)
[2019-08-17 05:08] LABS: PHOSPHORUS 3.7 mg/dL (2.5-4.5)
[2019-08-17] MEDS: HEPARIN SOD (PORCINE) 5,000 UNIT/ML 1 ML VIAL SUBCUT SCH ×3 (05:46→22:06)
[2019-08-17] MEDS: SULFAMETHOXAZOLE/TRIMETHOPRIM 800-160 MG/20 ML UDCUP PO SCH ×3 (05:52→22:19)
[2019-08-17] MEDS: METOPROLOL TARTRATE 50 MG TABLET PO SCH ×3 (05:52→22:19)
[2019-08-17] MEDS: METHIMAZOLE 5 MG TABLET PO SCH ×3 (05:53→22:19)
[2019-08-17] MEDS: SUCRALFATE 1 GM TABLET PO SCH ×4 (08:14→22:19)
[2019-08-17] MEDS: METOCLOPRAMIDE HCL ORAL SOLN 10 MG/10 ML UDCUP PO SCH ×4 (08:15→22:18)
[2019-08-17] MEDS: DOCUSATE SODIUM 100 MG/10 ML UDC PO SCH ×2 (11:50→17:08)
[2019-08-17] MEDS: NICOTINE 7 MG/24 HR PATCH.TD24 TD SCH (11:50)
[2019-08-17] MEDS: NYSTATIN/DEXAMETH/DIPHEN SUSP 120 ML PO SCH ×4 (11:53→22:20)
[2019-08-17] MEDS: PANTOPRAZOLE SODIUM 40 MG VIAL IV SCH ×2 (11:54→22:19)
--- NOTE | 2019-08-17 17:48 | PDOC PROGRESS REPORT ---
Subjective Progress Note for:: 08/17/19 Subjective:: No adverse events overnight. No new complaints. Heart rates coming down and her blood pressure has improved today as well. She is tolerating the increased and her tube feeding rates. Her throat feels better she was able to swallow a little bit of regular food today. She wants to know if so she can go outside in a chair under supervision. Reason For Visit: UNCONTROLLED HYPERTHYROIDISM,HIV AIDS,HIV Physical Exam Vital Signs: Temp Pulse Resp BP Pulse Ox 98.6 F 92 16 133/92 H 100 08/17/19 04:47 08/17/19 07:00 08/17/19 04:47 08/17/19 04:47 08/17/19 04:47 Intake & Output 08/16/19 08/17/19 08/18/19 06:59 06:59 06:59 Intake Total 755 587 3799 Output Total 550 2000 150 Balance 68 -1660 1518 Weight 30.2 kg 31.3 kg General appearance: PRESENT: no acute distress, cooperative, disheveled, thin Throat exam: PRESENT: tonsillar exudate Respiratory exam: PRESENT: clear to auscultation ty, symmetrical, unlabored, other - A very weak dry cough. ABSENT: accessory muscle use, chest wall tenderness, crackles, prolonged expiratory phas, retraction, tachypnea, wheezes Cardiovascular exam: PRESENT: tachycardia Pulses: PRESENT: normal carotid pulses Vascular exam: PRESENT: normal capillary refill GI/Abdominal exam: PRESENT: hypoactive bowel sounds, soft, other - New PEG tube in place, site is unremarkable. ABSENT: distended, guarding, rebound, tenderne ss Extremities exam: ABSENT: clubbing, pedal edema Musculoskeletal exam: PRESENT: other - Diffuse muscle wasting. 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 Mercado was consulted, appreciate her input and recommendations. CD4 count is 22. She is on Diflucan for her nasty esophageal candidiasis. We will need to make sure that she is got close follow-up with infectious disease, be it her pre vious provider or with someone new. Her sister brought in her antiretrovirals, but they were over a year old, so rather than start medications that may not be effective, we decided to hold off until she can follow-up outpatient with infectious disease. Also, because of her fever and her cough and some coarse breath sounds a few days ago, I decided to treat her empirically for PCP pneumonia with a 21-day course of Bactrim, and afterwards she will revert to a prophylaxis dose. (2) Dehydration Is this a current diagnosis for this admission?: Yes Plan: Resolved with IV fluids (3) HIV wasting syndrome Is this a current diagnosis for this admission?: Yes Plan: PEG tube was placed because it hurts too much to swallow food. She can swallow some liquids and some pills but was consulted dietary for tube feeding. Recommendations are noted and tube feeding has been restarted. She is at risk for refeeding syndrome, and we are checking labs on her to avoid that scenario. (4) Thyrotoxicosis Qualifiers: Thyrotoxicosis type: unspecified thyrotoxicosis type Thyrotoxic crisis or storm presence: with thyrotoxic crisis or storm Qualified Code(s): E05.91 - Thyrotoxicosis, unspecified with thyrotoxic crisis or storm Is this a current diagnosis for this admission?: Yes Plan: Free T3 seems to be coming down now on Tapazole. Blood pressure and heart rate have improved some. We also continue her beta-mirian. (5) Esophageal candidiasis Is this a current diagnosis for this admission?: Yes Plan: We will continue with Diflucan, which seems to be helping because she says she can swallow a little better today. (6) Moderate protein-calorie malnutrition Is this a current diagnosis for this admission?: Yes - Time Time Spent with patient: 15-24 minutes
[2019-08-17] MEDS: FLUCONAZOLE 100 MG TABLET PO SCH (22:19)
[2019-08-18] MEDS: HEPARIN SOD (PORCINE) 5,000 UNIT/ML 1 ML VIAL SUBCUT SCH ×3 (05:36→22:06)
[2019-08-18] MEDS: METOPROLOL TARTRATE 50 MG TABLET PO SCH ×3 (05:47→22:05)
[2019-08-18] MEDS: SULFAMETHOXAZOLE/TRIMETHOPRIM 800-160 MG/20 ML UDCUP PO SCH ×3 (05:47→22:05)
[2019-08-18] MEDS: METHIMAZOLE 5 MG TABLET PO SCH ×3 (05:47→22:05)
[2019-08-18 06:28] LABS: PHOSPHORUS 3.3 mg/dL (2.5-4.5); POTASSIUM 4.1 mmol/L (3.6-5.0)
[2019-08-18] MEDS: SUCRALFATE 1 GM TABLET PO SCH ×4 (08:41→22:06)
[2019-08-18] MEDS: METOCLOPRAMIDE HCL ORAL SOLN 10 MG/10 ML UDCUP PO SCH ×4 (08:41→22:05)
[2019-08-18] MEDS: DOCUSATE SODIUM 100 MG/10 ML UDC PO SCH ×2 (11:08→17:58)
[2019-08-18] MEDS: PANTOPRAZOLE SODIUM 40 MG VIAL IV SCH ×2 (11:11→22:05)
[2019-08-18] MEDS: NYSTATIN/DEXAMETH/DIPHEN SUSP 120 ML PO SCH ×4 (11:11→22:06)
[2019-08-18] MEDS: NICOTINE 7 MG/24 HR PATCH.TD24 TD SCH (11:11)
--- NOTE | 2019-08-18 17:12 | PDOC PROGRESS REPORT ---
Subjective Progress Note for:: 08/18/19 Subjective:: No adverse events overnight. She is feeling better with more energy. Her blood pressure has improved. She is tolerating her tube feeds well. She is been eating a little bit of regular food. Reason For Visit: UNCONTROLLED HYPERTHYROIDISM,HIV AIDS,HIV Physical Exam Vital Signs: Temp Pulse Resp BP Pulse Ox 98.2 F 101 H 18 120/87 H 99 08/18/19 15:27 08/18/19 15:27 08/18/19 15:27 08/18/19 15:27 08/18/19 15:27 Intake & Output 08/17/19 08/18/19 08/19/19 06:59 06:59 06:59 Intake Total 340 1718 853 Output Total 2000 650 Balance -1660 1068 853 Weight 31.3 kg 97.6 kg General appearance: PRESENT: no acute distress, cooperative, thin Respiratory exam: PRESENT: clear to auscultation ty, symmetrical, unlabored, other -breath sounds remain a little coarse. ABSENT: accessory muscle use, chest wall tenderness, crackles, prolonged expiratory phas, retraction, tachypnea, wheezes Cardiovascular exam: PRESENT: tachycardia Pulses: PRESENT: normal carotid pulses Vascular exam: PRESENT: normal capillary refill GI/Abdominal exam: PRESENT: hypoactive bowel sounds, soft, other - New PEG tube in place, site is unremarkable. ABSENT: distended, guarding, rebound, tenderness Extremities exam: ABSENT: clubbing, pedal edema Musculoskeletal exam: PRESENT: other - Diffuse muscle wasting. 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 Mercado was consulted, appreciate her input and recommendations. CD4 count is 22. She is on Diflucan for a nasty esophageal candidiasis. We will need to make sure that she is got close follow-up with infectious disease, be it her previous provider or with someone new. Her sister brought in her antiretrovirals, but they were over a year old, so rather than start medications that may not be effective, we decided to hold off until she can follow-up outpatient with infectious disease. Also, because of her fever and her cough and some coarse breath sounds a few days ago, I decided to treat her empirically for PCP pneumonia with a 21-day course of Bactrim, and afterwards she will revert to a prophylaxis dose. (2) Dehydration Is this a current diagnosis for this admission?: Yes Plan: Resolved with IV fluids (3) HIV wasting syndrome Is this a current diagnosis for this admission?: Yes Plan: PEG tube was placed because it hurts too much to swallow food. She can swallow some liquids and some pills but was consulted dietary for tube feeding. Recommendations are noted and tube feeding has been restarted. She is at risk for refeeding syndrome, and we are checking labs on her to avoid that scenario. (4) Thyrotoxicosis Qualifiers: Thyrotoxicosis type: unspecified thyrotoxicosis type Thyrotoxic crisis or storm presence: with thyrotoxic crisis or storm Qualified Code(s): E05.91 - Thyrotoxicosis, unspecified with thyrotoxic crisis or storm Is this a current diagnosis for this admission?: Yes Plan: Free T3 has trended down now on Tapazole. Blood pressure and heart rate have improved. We also continue her beta-mirian. (5) Esophageal candidiasis Is this a current diagnosis for this admission?: Yes Plan: We will continue with Diflucan, which seems to be helping because she says she can swallow a little better and is eating a little bit of real food. (6) Moderate protein-calorie malnutrition Is this a current diagnosis for this admission?: Yes - Time Time Spent with patient: 15-24 minutes
[2019-08-18] MEDS: FLUCONAZOLE 100 MG TABLET PO SCH (22:05)
[2019-08-19 04:29] LABS: PHOSPHORUS 4.2 mg/dL (2.5-4.5); POTASSIUM 4.5 mmol/L (3.6-5.0)
[2019-08-19] MEDS: METHIMAZOLE 5 MG TABLET PO SCH ×2 (06:01→13:53)
[2019-08-19] MEDS: SULFAMETHOXAZOLE/TRIMETHOPRIM 800-160 MG/20 ML UDCUP PO SCH ×2 (06:01→13:53)
[2019-08-19] MEDS: METOPROLOL TARTRATE 50 MG TABLET PO SCH ×2 (06:01→13:52)
[2019-08-19] MEDS: HEPARIN SOD (PORCINE) 5,000 UNIT/ML 1 ML VIAL SUBCUT SCH ×2 (06:02→13:52)
[2019-08-19] MEDS: NYSTATIN/DEXAMETH/DIPHEN SUSP 120 ML PO SCH ×2 (09:20→13:53)
[2019-08-19] MEDS: DOCUSATE SODIUM 100 MG/10 ML UDC PO SCH (09:20)
[2019-08-19] MEDS: SUCRALFATE 1 GM TABLET PO SCH ×3 (09:21→15:55)
[2019-08-19] MEDS: PANTOPRAZOLE SODIUM 40 MG VIAL IV SCH (09:22)
[2019-08-19] MEDS: NICOTINE 7 MG/24 HR PATCH.TD24 TD SCH (09:23)
[2019-08-19] MEDS: METOCLOPRAMIDE HCL ORAL SOLN 10 MG/10 ML UDCUP PO SCH ×3 (09:33→15:55)
[2019-08-19 12:10] VITALS: BP 121/82
[2019-08-19] MEDS ORDERED: PROMETHAZINE HCL INJ 25 MG/1 ML VIAL IV PRN (15:00)
--- NOTE | 2019-08-19 18:25 | PDOC DISCHARGE SUMMARY ---
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 Is this a current diagnosis for this admission?: Yes (2) Dehydration Is this a current diagnosis for this admission?: Yes (3) HIV wasting syndrome Is this a current diagnosis for this admission?: Yes (4) Thyrotoxicosis Is this a current diagnosis for this admission?: Yes (5) Esophageal candidiasis Is this a current diagnosis for this admission?: Yes (6) Moderate protein-calorie malnutrition Is this a current diagnosis for this admission?: Yes - Additional Information Resuscitation Status: Full Code Discharge Diet: Tube Feeding (Comments) - Jevity 1.5 at 30 ml/hr continuous with 15 ml/hr water flushes Discharge Activity: Slowly Increase Activity Prescriptions: Fluconazole [Diflucan 100 mg Tablet] 200 mg PO QHS #7 tablet Metoprolol Tartrate [Lopressor 50 mg Tablet] 25 mg PO Q8 #90 tablet Sulfamethoxazole/Trimethoprim [Septra Susp 800-160 mg/20 ml] 20 ml PO Q8 #950 ml Sulfamethoxazole/Trimethoprim [Septra Susp 800-160 mg/20 ml] 20 ml PO DAILY #600 udc Methimazole [Tapazole 5 mg Tablet] 5 mg PO Q8 #90 tablet Home Medications: Omeprazole 40 mg PO DAILY 08/13/19 Promethazine HCl [Phenergan 25 mg Tablet] 25 mg PO Q6HP PRN 08/13/19 Sucralfate [Carafate 1 gm Tablet] 1 gm PO ACHS 08/13/19 Fluconazole [Diflucan 100 mg Tablet] 200 mg PO QHS #7 tablet 08/19/19 Methimazole [Tapazole 5 mg Tablet] 5 mg PO Q8 #90 tablet 08/19/19 Metoprolol Tartrate [Lopressor 50 mg Tablet] 25 mg PO Q8 #90 tablet 08/19/19 Sulfamethoxazole/Trimethoprim [Septra Susp 800-160 mg/20 ml] 20 ml PO DAILY #600 udc 08/19/19 Sulfamethoxazole/Trimethoprim [Septra Susp 800-160 mg/20 ml] 20 ml PO Q8 #950 ml 08/19/19 History of Present Illiness History of Present Illness: ADRIANA NICHOLE is a 29 year old female who presented to the emergency room with a 5-week history of progressively worsening abdominal pain. She indicates that she has not been able to take any of her usual medications for HIV/AIDS or Graves' hyperthyroidism due to pain with swallowing. She admits gradually worsening epigastric pain with associated heartburn and anorexia. The epigastric pain and heartburn are now severe. Her heartburn is continuous, dramatically increased with swallowing anything and is centered in her anterior chest without radiation. The epigastric pain constant, of a gripping and burning in nature, does not radiate and is worsened with ingestion. She has been to the emergency room several times for treatment of these problems with a non-confirmed diagnosis of Sarai esophagitis which was treated with Carafate, omeprazole and Diflucan without improvement. She reports additional associated symptoms of generalized weakness, weight loss, fatigue and dyspnea with exertion. She denies prior similar symptoms and has not identified any additional aggravating or ameliorating factors for her abdominal pain. In the emergency room she was found to have tachycardia and hypertension. Laboratory studies revealed a thyrotoxicosis and the patient was subsequently treated with methimazole and beta-blockers. Recommendation to the emergency room that the patient would be better served by transfer to a facility with infectious disease, endocrinology and gastroenterology subspecialties was made, however no beds were available at the facilities contacted by the emergency room physician. She was subsequently admitted to the hospital for further evaluation and treatment. Hospital Course Hospital Course: She had a pretty nasty esophageal candidiasis that fortunately responded pretty well to Diflucan. We found out that she had not been on her antiviral medica tions and quite some time, the length of time is uncertain because her history is inconsistent but is evident she is been off of it for quite some time because July 18 her CD4 count was 227 and we checked it here it was down to 22. She had not been able to swallow and had a lot of wasting and it hurt too much to swallow and so we got a PEG tube to start some tube feeding and hydration until such time as she was able to reliably eat and swallow enough food for her nutritional requirements. She had a fever, cough, and some shortness of breath, and very coarse breath sounds, so given her low CD4 count I empirically put her on some Bactrim for pneumocystis pneumonia. She will complete a 21-day course and then transition to a prophylactic dose daily. We consider restarting her antivirals here, but the pills that we had were over a year old and we were not sure there are efficacy, and so rather than start her back on some pills that might be less than efficacious we decided to wait until she follows up with infectious disease and has possible further testing and then start on the medication regimen recommended by her new doctor. She was on Prezista and Genvoya previously. She did respond fairly well to the Diflucan because she is now able to eat some solid food without much pain. She also had improvement in her respiratory status and her energy levels after a few days on Bactrim. We made arrangements for her to get tube feeds at home. We also set up follow-up for her with infectious disease in [place]. She was also treated for hyperthyroidism. She was supposed to been on Tapazole had not been taken that in some time. We have her on a beta-mirian and Tapazole now, and her blood pressures and her heart rate have improved. Her T3 was still elevated but was coming down. Overall she was dramatically improved from her initial presentation. She still has a lot of muscle wasting and is weak but her energy level has improved. Her labs and examination were reassuring and she was discharged in good condition. Physical Exam Vital Signs: Temp Pulse Resp BP Pulse Ox 98.5 F 94 16 106/78 98 08/19/19 12:04 08/19/19 12:04 08/19/19 12:04 08/19/19 12:04 08/19/19 12:04 Intake & Output 08/18/19 08/19/19 08/20/19 06:59 06:59 06:59 Intake Total 1718 1662 240 Output Total 650 Balance 1068 1662 240 Weight 31.2 kg General appearance: PRESENT: no acute distress, cooperative, thin Respiratory exam: PRESENT: clear to auscultation ty, symmetrical, unlabored, other -breath sounds remain a little coarse. ABSENT: accessory muscle use, chest wall tenderness, crackles, prolonged expiratory phas, retraction, tachypnea, wheezes Cardiovascular exam: PRESENT: tachycardia Pulses: PRESENT: normal carotid pulses Vascular exam: PRESENT: normal capillary refill GI/Abdominal exam: PRESENT: hypoactive bowel sounds, soft, other - New PEG tube in place, site is unremarkable. ABSENT: distended, guarding, rebound, t enderness Extremities exam: ABSENT: clubbing, pedal edema Musculoskeletal exam: PRESENT: other - Diffuse muscle wasting. ABSENT: deformity Neurological exam: PRESENT: awake, oriented to person, oriented to place, oriented to situation Skin exam: PRESENT: dry, warm Results Laboratory Results: WBC 3.9 10^3/uL (4.0-10.5) L 08/15/19 04:29 RBC 3.41 10^6/uL (3.72-5.28) L 08/15/19 04:29 Hgb 8.3 g/dL (12.0-15.5) L 08/15/19 04:29 Hct 24.2 % (36.0-47.0) L 08/15/19 04:29 MCV 71 fl (80-97) L 08/15/19 04:29 MCH 24.3 pg (27.0-33.4) L 08/15/19 04:29 MCHC 34.2 g/dL (32.0-36.0) 08/15/19 04:29 RDW 13.7 % (11.5-14.0) 08/15/19 04:29 Plt Count 68 10^3/uL (150-450) L 08/15/19 04:29 Lymph % (Auto) 21.3 % (13-45) 08/12/19 19:00 [place] % (Auto) 13.0 % (3-13) 08/12/19 19:00 Eos % (Auto) 0.9 % (0-6) 08/12/19 19:00 Baso % (Auto) 0.2 % (0-2) 08/12/19 19:00 Absolute Neuts (auto) 2.7 10^3/uL (1.7-8.2) 08/12/19 19:00 Absolute Lymphs (auto) 0.9 10^3/uL (0.5-4.7) 08/12/19 19:00 Absolute Monos (auto) 0.5 10^3/uL (0.1-1.4) 08/12/19 19:00 Absolute Eos (auto) 0.0 10^3/uL (0.0-0.6) 08/12/19 19:00 Absolute Basos (auto) 0.0 10^3/uL (0.0-0.2) 08/12/19 19:00 Seg Neutrophils % 64.6 % (42-78) 08/12/19 19:00 Immature Granulocytes 0 % (Not Estab.) 08/14/19 19:08 Immature Gran # 0.0 x10E3/uL (0.0-0.1) 08/14/19 19:08 Nucleated RBCs TNP 08/14/19 19:08 Immature Blood Cells TNP 08/14/19 19:08 Carbonic Acid 1.23 mmol/L (1.05-1.35) 08/13/19 20:04 HCO3/H2CO3 Ratio 21:1 08/13/19 20:04 ABG pH 7.43 (7.35-7.45) 08/13/19 20:04 ABG pCO2 40.9 mmHg (35-45) 08/13/19 20:04 ABG pO2 100.3 mmHg (80-100) H 08/13/19 20:04 ABG HCO3 26.4 mmol/L (20-24) H 08/13/19 20:04 ABG Total CO2 27.7 mmol/L (21-25) H 08/13/19 20:04 ABG O2 Saturation 97.7 % (94-98) 08/13/19 20:04 ABG Base Excess 1.9 mmol/L 08/13/19 20:04 FiO2 21% 08/13/19 20:04 Sodium 138.4 mmol/L (137-145) 08/15/19 04:29 Potassium 4.5 mmol/L (3.6-5.0) 08/19/19 03:51 Chloride 110 mmol/L (98-107) H 08/15/19 04:29 Carbon Dioxide 23 mmol/L (22-30) 08/15/19 04:29 Anion Gap 5 (5-19) 08/15/19 04:29 BUN 11 mg/dL (7-20) 08/15/19 04:29 Creatinine 0.43 mg/dL (0.52-1.25) L 08/15/19 04:29 Est GFR ( Amer) > 60 (>60) 08/15/19 04:29 Est GFR (MDRD) Non-Af > 60 (>60) 08/15/19 04:29 Glucose 91 mg/dL (75-110) 08/15/19 04:29 Calcium 8.1 mg/dL (8.4-10.2) L 08/15/19 04:29 Phosphorus 4.2 mg/dL (2.5-4.5) 08/19/19 03:51 Magnesium 1.7 mg/dL (1.6-2.3) 08/19/19 03:51 Total Bilirubin 0.9 mg/dL (0.2-1.3) 08/12/19 19:00 Direct Bilirubin 0.5 mg/dL (0.0-0.4) H 08/12/19 19:00 Neonat Total Bilirubin Not Reportable 08/12/19 19:00 Neonat Direct Bilirubin Not Reportable 08/12/19 19:00 Neonat Indirect Bili Not Reportable 08/12/19 19:00 AST 59 U/L (14-36) H 08/12/19 19:00 ALT 32 U/L (<35) 08/12/19 19:00 Alkaline Phosphatase 163 U/L (38-126) H 08/12/19 19:00 Lactate Dehydrogenase 166 U/L (120-246) 08/13/19 19:35 Troponin I < 0.012 ng/mL 08/12/19 19:00 Total Protein 8.4 g/dL (6.3-8.2) H 08/12/19 19:00 Albumin 4.2 g/dL (3.5-5.0) 08/12/19 19:00 TSH < 0.01 uIU/mL (0.47-4.68) L 08/15/19 04:29 Free T4 4.77 ng/dL (0.78-2.19) H 08/15/19 04:29 Free T3 pg/mL 10.20 pg/mL (2.77-5.27) H 08/15/19 04:29 Urine Color ADRIANNE 08/12/19 21:50 Urine Appearance CLOUDY 08/12/19 21:50 Urine pH 5.0 (5.0-9.0) 08/12/19 21:50 Ur Specific Castell 1.019 08/12/19 21:50 Urine Protein 100 mg/dL (NEGATIVE) H 08/12/19 21:50 Urine Glucose (UA) NEGATIVE mg/dL (NEGATIVE) 08/12/19 21:50 Urine Ketones TRACE mg/dL (NEGATIVE) H 08/12/19 21:50 Urine Blood MODERATE (NEGATIVE) H 08/12/19 21:50 Urine Nitrite NEGATIVE (NEGATIVE) 08/12/19 21:50 Urine Bilirubin NEGATIVE (NEGATIVE) 08/12/19 21:50 Urine Urobilinogen 4.0 mg/dL (<2.0) H 08/12/19 21:50 Ur Leukocyte Esterase NEGATIVE (NEGATIVE) 08/12/19 21:50 Urine WBC (Auto) 10 /HPF 08/12/19 21:50 Urine RBC (Auto) 5 /HPF 08/12/19 21:50 U Hyaline Cast (Auto) 78 /LPF 08/12/19 21:50 Urine Bacteria (Auto) TRACE /HPF 08/12/19 21:50 Squamous Epi Cells Auto 14 /HPF 08/12/19 21:50 Urine Mucus (Auto) MANY /LPF 08/12/19 21:50 Urine Ascorbic Acid NEGATIVE (NEGATIVE) 08/12/19 21:50 Urine HCG, Qual NEGATIVE (NEGATIVE) 08/12/19 21:50 Stl C. Difficile GDH Ag NEGATIVE (NEGATIVE) 08/16/19 20:10 Stl C.difficile Tox A&B NEGATIVE (NEGATIVE) 08/16/19 20:10 RBC 3.39 x10E6/uL (3.77-5.28) L 08/14/19 19:08 Hgb 8.1 g/dL (11.1-15.9) L 08/14/19 19:08 Hct 24.6 % (34.0-46.6) L 08/14/19 19:08 MCV 73 fL (79-97) L 08/14/19 19:08 MCH 23.9 pg (26.6-33.0) L 08/14/19 19:08 MCHC 32.9 g/dL (31.5-35.7) 08/14/19 19:08 RDW 13.7 % (12.3-15.4) 08/14/19 19:08 Platelet Count 95 x10E3/uL (150-450) L 08/14/19 19:08 Total WBC 3.8 x10E3/uL (3.4-10.8) 08/14/19 19:08 Neutrophils 70 % (Not Estab.) 08/14/19 19:08 Lymphocytes 21 % (Not Estab.) 08/14/19 19:08 Monocytes 7 % (Not Estab.) 08/14/19 19:08 Eosinophils 2 % (Not Estab.) 08/14/19 19:08 Basophils 0 % (Not Estab.) 08/14/19 19:08 Absolute Neutrophils 2.7 x10E3/uL (1.4-7.0) 08/14/19 19:08 Absolute Lymphocytes 0.8 x10E3/uL (0.7-3.1) 08/14/19 19:08 Absolute Monocytes 0.3 x10E3/uL (0.1-0.9) 08/14/19 19:08 Absolute Eosinophils 0.1 x10E3/uL (0.0-0.4) 08/14/19 19:08 Absolute Basophils 0.0 x10E3/uL (0.0-0.2) 08/14/19 19:08 Hematology Comment Note: (.) 08/14/19 19:08 % CD4 Cells 2.7 % (30.8-58.5) L 08/14/19 19:08 Absolute CD4 Count 22 /uL (359-1519) L 08/14/19 19:08 T-Lymph CD4/CD8 Ratio 0.04 (0.92-3.72) L 08/14/19 19:08 % CD8 Cells 62.1 % (12.0-35.5) H 08/14/19 19:08 Absolute CD8 Count 497 /uL (109-897) 08/14/19 19:08 08/12/19 19:00 Troponin I < 0.012 Plan Time Spent: Greater than 30 Minutes Stroke Is this a Stroke Patient?: No Acute Heart Failure - Is this a Heart Failure Patient?: No
[2019-08-19] MEDS ORDERED: METOPROLOL TARTRATE 25 MG TABLET PO SCH (22:00)
[2019-08-20 15:03] LABS: % CD 4 POS LYMPH 24.4 % (30.8-58.5); % CD 8 POS LYMPH 71.7 % (12.0-35.5); ABSOLUTE CD 4 HELPER 195 /uL (359-1519); ABSOLUTE CD 8 SUPPRESSOR 574 /uL (109-897); CD BASOPHILS 0 % (Not Estab.); CD EOSINOPHILS 2 % (Not Estab.); CD MONOCYTES 7 % (Not Estab.); CD NEUTROPHILS 70 % (Not Estab.); CD4/CD8 RATIO 0.34 (0.92-3.72); EOSINOPHILS (ABSOLUTE) 0.1 x10E3/uL (0.0-0.4); HEMOGLOBIN 8.1 g/dL (11.1-15.9); LYMPHS(ABSOLUTE) 0.8 x10E3/uL (0.7-3.1); MCHC 32.9 g/dL (31.5-35.7); MCV 73 fL (79-97); PLATELETS 95 x10E3/uL (150-450); RBC 3.39 x10E6/uL (3.77-5.28); RDW 13.7 % (12.3-15.4); WBC 3.8 x10E3/uL (3.4-10.8)
[2019-08-20 15:04] LABS: IMMATURE GRANULOCYTES 0 % (Not Estab.)
== END 2019-08-19 17:10 | disposition home health service (06) | DRG 974 ==
LOC: ER 18:03 → EH 08-13 00:11 → 4S 08-13 04:43
PROVIDERS: ADMIT Emergency Medicine; ATTEND Emergency Medicine
PROC: 0DB38ZX Excision of Lower Esophagus, Via Natural or Artificial Opening Endoscopic, Diagnostic (ICD-10-PCS; principal; 2019-08-13 09:00)
PROC: 0DH63UZ Insertion of Feeding Device into Stomach, Percutaneous Approach (ICD-10-PCS; 2019-08-13 09:00)
DX: B20 Human immunodeficiency virus [HIV] disease (principal); B59 Pneumocystosis; E05.91 Thyrotoxicosis, unspecified with thyrotoxic crisis or storm; E44.0 Moderate protein-calorie malnutrition; B37.81 Candidal esophagitis; Z68.1 Body mass index [BMI] 19.9 or less, adult; R13.19 Other dysphagia; F32.9 Major depressive disorder, single episode, unspecified; F41.1 Generalized anxiety disorder; F17.210 Nicotine dependence, cigarettes, uncomplicated; E86.0 Dehydration; I10 Essential (primary) hypertension; K29.70 Gastritis, unspecified, without bleeding; K29.80 Duodenitis without bleeding; R00.0 Tachycardia, unspecified; Z91.14 Patient's other noncompliance with medication regimen; Z83.0 Family history of human immunodeficiency virus [HIV] disease; Z59.9 Problem related to housing and economic circumstances, unspecified
CPT/HCPCS: 36415; 36600; 43239; 43246; 80048; 80053; 81001; 81025; 82803; 83615; 83735; 84100; 84132; 84439; 84443; 84481; 84484; 85025; 85027; 86360; 87324; 87449; 88305; 93005; 93010; 96361; 96374; 99291; J0171; J0360; J1200; J1450; J1610; J2250; J2270; J2310; J2405; J2550; J3010; J3475; J3480; J3490; J7030; J7121; S0164

== ENCOUNTER 2019-11-18 18:48 | Inpatient (IN) | payer MEDICARE, MEDICAID ==
[2019-11-18] MEDS ORDERED: ACETAMINOPHEN 325 MG TABLET PO ONE (21:03)
[2019-11-18] MEDS ORDERED: NORMAL SALINE IV ONE (21:03)
--- NOTE | 2019-11-18 21:08 | ER Document Report ---
ED Medical Screen (RME) - General Chief Complaint: Abdominal Pain Stated Complaint: POSSIBLE HIV/AIDS,STOMACH PAIN Time Seen by Provider: 11/18/19 20:55 Notes: Patient is a 29-year-old female with a history of HIV who presents to the emergency department with a chief complaint of weakness. Patient reports she has not felt well for over 2 weeks. Patient reports she has had some chest pain with shortness of breath and mid abdominal pain. Patient does have a feeding tube and has been using this intermittently. Patient reports nausea and 2 episodes of vomiting this morning. Patient denies sick contacts. Patient reports she has had a dry cough. Patient reports has been off her HIV medication for months. Patient reports she also has Graves' disease and has been off of those medications for the same amount of time. TRAVEL OUTSIDE OF THE [place] IN LAST 30 DAYS: No - Related Data Allergies/Adverse Reactions: No Known Allergies Allergy (Verified 07/18/19 18:25) Home Medications: pt states she is currently out of her HIV medications Past Medical History - Social History Chew tobacco use (# tins/day): No Frequency of alcohol use: None Drug Abuse: None - Past Medical History Cardiac Medical History: Reports: Hx Hypertension - preeclampsia during . Denies: Hx Congestive Heart Failure, Hx DVT, Hx Heart Attack, Hx Hypercholesterolemia, Hx Pulmonary Embolism Pulmonary Medical History: Denies: Hx Asthma, Hx COPD Neurological Medical History: Denies: Hx Seizures Endocrine Medical History: Reports: Hx Hyperthyroidism. Denies: Hx Diabetes Mellitus Type 1, Hx Diabetes Mellitus Type 2, Hx Hypothyroidism Renal/ Medical History: Denies: Hx Peritoneal Dialysis GI Medical History: Denies: Hx Cirrhosis, Hx Gastroesophageal Reflux Disease, Hx Hepatitis Musculoskeltal Medical History: Denies Hx Arthritis, Denies Hx Gout Skin Medical History: Denies Hx Eczema, Denies Hx Psoriasis Psychiatric Medical History: Reports: Hx Depression Infectious Medical History: Reports: Hx HIV. Denies: Hx Hepatitis Past Surgical History: Denies: Hx Hysterectomy - Immunizations Immunizations up to date: Yes Hx Diphtheria, Pertussis, Tetanus Vaccination: Yes Physical Exam - Vital signs Vitals: Temp Pulse BP Pulse Ox 101.3 F H 170 H 119/86 H 98 11/18/19 19:36 11/18/19 19:36 11/18/19 19:36 11/18/19 19:36 Course - Re-evaluation Re-evalutation: 11/18/19 21:07 Patient tachycardic and febrile in triage. Will initiate a septic work-up. I have greeted and performed a rapid initial assessment of this patient. A comprehensive ED assessment and evaluation of the patient, analysis of test results and completion of the medical decision making process will be conducted by additional ED providers. - Vital Signs Vital signs: Temp Pulse Resp BP Pulse Ox 101.3 F H 170 H 119/86 H 98 11/18/19 19:36 11/18/19 19:36 11/18/19 19:36 11/18/19 19:36
[2019-11-18 22:03] LABS: ABSOLUTE LYMPHOCYTES (AUTO) 0.7 10^3/uL (0.5-4.7); ABSOLUTE MONOCYTES (AUTO) 0.5 10^3/uL (0.1-1.4); BASOPHILS % (AUTO) 0.1 % (0-2); EOSINOPHILS % (AUTO) 0.1 % (0-6); HEMATOCRIT 36.4 % (36.0-47.0); HEMOGLOBIN 12.1 g/dL (12.0-15.5); LYMPHOCYTES % (AUTO) 12.9 % (13-45); MEAN CORPUSCULAR HGB CONC 33.1 g/dL (32.0-36.0); MEAN CORPUSCULAR VOLUME 73 fl (80-97); MONOCYTES % (AUTO) 9.3 % (3-13); PLATELET COUNT 152 10^3/uL (150-450); RED BLOOD COUNT 5.02 10^6/uL (3.72-5.28); RED CELL DISTRIBUTION WIDTH 14.1 % (11.5-14.0); SEGMENTED NEUTROPHILS % (AUTO) 77.6 % (42-78); TOTAL CELLS COUNTED % (AUTO) 100 %; WHITE BLOOD COUNT 5.2 10^3/uL (4.0-10.5)
[2019-11-18 22:08] LABS: INTERNATIONAL RATION (INR) 0.92; PROTHROMBIN TIME 12.4 SEC (11.4-15.4)
[2019-11-18] MEDS ORDERED: RINGERS SOLUTION,LACTATED 1,000 ML IV ONE ×2 (22:09)
[2019-11-18 22:13] LABS: VENOUS BLOOD BASE EXCESS 2.4 mmol/L; VENOUS BLOOD HCO3 26.7 mmol/L (20-32); VENOUS BLOOD PCO2 40.5 mmHg (35-63); VENOUS BLOOD PH 7.44 (7.30-7.42)
--- NOTE | 2019-11-18 22:13 | ER Document Report ---
ED General - General Chief Complaint: Abdominal Pain Stated Complaint: POSSIBLE HIV/AIDS,STOMACH PAIN Time Seen by Provider: 11/18/19 20:55 TRAVEL OUTSIDE OF THE [place] IN LAST 30 DAYS: No - Related Data Allergies/Adverse Reactions: No Known Allergies Allergy (Verified 07/18/19 18:25) Home Medications: pt states she is currently out of her HIV medications Past Medical History - Social History Smoking Status: Current Every Day Smoker Chew tobacco use (# tins/day): No Frequency of alcohol use: None Drug Abuse: None Family History: None, Other - HIV AIDS Patient has suicidal ideation: No Patient has homicidal ideation: No - Past Medical History Cardiac Medical History: Reports: Hx Hypertension - preeclampsia during . Denies: Hx Congestive Heart Failure, Hx DVT, Hx Heart Attack, Hx Hypercholesterolemia, Hx Pulmonary Embolism Pulmonary Medical History: Denies: Hx Asthma, Hx COPD Neurological Medical History: Denies: Hx Seizures Endocrine Medical History: Reports: Hx Hyperthyroidism. Denies: Hx Diabetes Mellitus Type 1, Hx Diabetes Mellitus Type 2, Hx Hypothyroidism Renal/ Medical History: Denies: Hx Peritoneal Dialysis GI Medical History: Denies: Hx Cirrhosis, Hx Gastroesophageal Reflux Disease, Hx Hepatitis Musculoskeletal Medical History: Denies Hx Arthritis, Denies Hx Gout Skin Medical History: Denies Hx Eczema, Denies Hx Psoriasis Psychiatric Medical History: Reports: Hx Depression Infectious Medical History: Reports: Hx HIV. Denies: Hx Hepatitis Past Surgical History: Denies: Hx Hysterectomy - Immunizations Immunizations up to date: Yes Hx Diphtheria, Pertussis, Tetanus Vaccination: Yes Physical Exam - Vital signs Vitals: Temp Pulse BP Pulse Ox 101.3 F H 170 H 119/86 H 98 11/18/19 19:36 11/18/19 19:36 11/18/19 19:36 11/18/19 19:36 - Notes Notes: Patient presents emergency department complaining of feeling well for the past 2 weeks. She states she is felt warm but she taken a fever. She has had some nausea no vomiting with decreased p.o. intake as well as chest pain and abdominal pain. The chest pain is substernal and nonradiating. Is been fairly constant for the past 2 weeks. Is with breathing and cough. Has been associate with some mild shortness of breath. Also reports abdominal pain epigastric and left upper quadrant for 2 weeks also. Is been tolerating her tube feedings however. She has had no diarrhea or dysuria. Denies any headaches or abnormal vision throat runny nose diarrhea or dysuria. Past medical history includes HIV last CD4 count when she was in the hospital was 22 in October. She also has a history of Graves' disease. She has been in July for similar presentation is found to be hyperthyroid he was treated with Social history she has smoked but does not drink. LMP is unknown she has irregular menses. Medications she has been off her for medicine for Graves' disease for about 2 months has been off her medicines for several months Review of systems pertinent positives and negatives in HPI otherwise all the systems were reviewed and acutely negative PHYSICIAN EXAM -vital signs are noted triage note and note from triage reviewed GENERAL: Well-appearing, well-nourished and in ___no acute distress___ HEAD: Atraumatic, normocephalic. EYES: Pupils equal round and reactive to light, extraocular movements intact, sclera anicteric, conjunctiva are normal. ENT: nares patent, oropharynx clear without exudates. Slightly dry mucous membranes. NECK: supple without lymphadenopathy no meningeal signs LUNGS: Breath sounds clear to auscultation bilaterally and equal. No wheezes rales or rhonchi. HEART: Rapid rate and regular rhythm without murmurs ABDOMEN: Soft, mild epigastric and left upper quadrant tenderness. Was placed left upper quadrant the site is clean and dry EXTREMITIES: No deformity, no edema. NEUROLOGICAL: No focal neurological deficits. Moves all extremities spontaneously and on command. She is not hyperreflexic PSYCH: Normal mood, normal affect. SKIN: Warm, Dry, normal turgor, no rashes or lesions noted. BACK-nontender in the midline Differential diagnosis dehydration abnormal electrolytes Graves' disease hypothyroidism abscess pneumonia Course - Re-evaluation Re-evalutation: 11/19/19 01:47 ED patient is remained stable she was given 2 L of Ringer's lactate and has been able to urinate. 100 has not improved slightly. 1 dose of Inderal. We did o rder methimazole not available. Has been resting comfortably heart rate down to 116 count is unremarkable and she has no meds of UTI or pneumonia on x-ray. I suspect the fever may be related to her hypothyroidism Medical decision making patient presents with fever myalgias with evidence of dehydration and hypothyroidism. Patient will need admission to the hospital I have consulted the hospitalist I discussed results of laboratory findings and diagnostic test with patient/family. The treatment plan was explained and I reviewed the discharge instructions with them. Questions were answered. The patient/family verbalizes understanding 11/19/19 01:48 - Vital Signs Vital signs: Temp Pulse Resp BP Pulse Ox 98.4 F 170 H 25 H 140/104 H 100 11/18/19 22:58 11/18/19 19:36 11/19/19 01:00 11/18/19 23:01 11/19/19 01:00 - Laboratory Result Diagrams: 11/18/19 21:30 11/18/19 21:30 Laboratory results interpreted by me: 11/18/19 11/18/19 11/18/19 21:04 21:30 21:30 MCV 73 L MCH 24.0 L RDW 14.1 H Lymph % (Auto) 12.9 L VBG pH BUN 24 H Creatinine 0.35 L Glucose 114 H AST 41 H Alkaline Phosphatase 147 H TSH Free T4 4.86 H Free T3 pg/mL 13.80 H Urine Protein Urine Urobilinogen Urine Ascorbic Acid 11/18/19 11/18/19 11/18/19 21:30 21:30 23:59 MCV MCH RDW Lymph % (Auto) VBG pH 7.44 H BUN Creatinine Glucose AST Alkaline Phosphatase TSH < 0.01 L Free T4 Free T3 pg/mL Urine Protein 100 H Urine Urobilinogen 4.0 H Urine Ascorbic Acid 40 H - EKG Interpretation by Me Additional EKG results interpreted by me: 11/18/19 22:13 EKG read by me shows sinus tachycardia with a rate of 135. T waves are prominent similar to previous Critical Care Note - Critical Care Note Total time excluding time spent on procedures (mins): 35 Discharge - Discharge Clinical Impression: Hyperthyroidism Dysphagia Qualifiers: Dysphagia type: oral phase Qualified Code(s): R13.11 - Dysphagia, oral phase HIV (human immunodeficiency virus infection) Qualifiers: HIV symptom status: unspecified Qualified Code(s): B20 - Human immunodeficiency virus [HIV] disease Disposition: ADMITTED OBSERVATION Admitting Provider: Erasmo (Hospitalist)
[2019-11-18 22:17] LABS: ALBUMIN 3.8 g/dL (3.5-5.0); ALKALINE PHOSPHATASE 147 U/L (38-126); ANION GAP 13 (5-19); ASPARTATE AMINO TRANSFERASE 41 U/L (14-36); BILIRUBIN,DIRECT 0.3 mg/dL (0.0-0.4); BILIRUBIN,TOTAL 0.5 mg/dL (0.2-1.3); BLOOD UREA NITROGEN 24 mg/dL (7-20); CALCIUM 9.8 mg/dL (8.4-10.2); CARBON DIOXIDE 27 mmol/L (22-30); CHLORIDE 98 mmol/L (98-107); GLUCOSE 114 mg/dL (75-110); POTASSIUM 4.1 mmol/L (3.6-5.0); TOTAL PROTEIN 7.8 g/dL (6.3-8.2)
--- NOTE | 2019-11-18 22:19 | RADIOLOGY REPORT (SQ) ---
EXAM DESCRIPTION: [facility]: XR CHEST 2 VIEWS Views: 2 CLINICAL HISTORY: 29 years Female, PRODUCTIVE COUGH COMPARISON: 02/09/2018 FINDINGS: The lungs are clear. No pneumothorax or significant pleural effusion. Cardiomediastinal silhouette is within normal limits. Bony structures are unremarkable for age. IMPRESSION: 1. No acute cardiothoracic abnormality.
[2019-11-18] MEDS: RINGERS SOLUTION,LACTATED 1,000 ML IV PRN ×2 (22:26→23:10)
[2019-11-18 22:48] LABS: FREE T3 13.8 pg/mL (2.77-5.27); FREE T4 (FREE THYROXINE) 4.86 ng/dL (0.78-2.19)
[2019-11-19] MEDS ORDERED: PROPRANOLOL HCL INJ/PF 1 MG/1 ML SDV IV ONE (00:05)
[2019-11-19] MEDS ORDERED: METHIMAZOLE 5 MG TABLET PO ONE (00:10)
[2019-11-19 00:20] LABS: APPEARANCE,URINE CLEAR; BILIRUBIN,URINE NEGATIVE (NEGATIVE); COLOR,URINE YELLOW; GLUCOSE, URINE NEGATIVE (NEGATIVE); KETONES,URINE NEGATIVE (NEGATIVE); PROTEIN,URINE 100 mg/dL (NEGATIVE); URINE SPECIFIC GRAVITY 1.026
--- NOTE | 2019-11-19 00:31 | RADIOLOGY REPORT (SQ) ---
EXAM DESCRIPTION: CT ABDOMEN PELVIS WITH IV CONTRAST COMPLETED DATE/TME: 11/18/2019 22:47 CLINICAL HISTORY: 29 years, Female, LUQ EPIGASTRIC Abdominal pain. HCG NEG COMPARISON: None. TECHNIQUE: Contrast enhanced CT of the abdomen/pelvis was performed. Images were obtained after the uneventful administration of 100 mL of Omnipaque 350 intravenous contrast. Images stored on PACS. All CT scanners at this facility use dose modulation, iterative reconstruction, and/or weight based dosing when appropriate to reduce radiation dose to as low as reasonably achievable (ALARA). [facility]: Dose Right [facility]: CareDose [facility]: Dose Right [facility]: Teradose 4D [facility]: FundRazr LIMITATIONS: None. FINDINGS: Limited evaluation of the lower chest reveals clear lung bases. Liver enhances normally though there is moderate periportal edema. Spleen demonstrates a somewhat heterogenous pattern of enhancement on portal venous imaging. However, this appears to homogenize during the more delayed phase. It does not appear significantly enlarged. Pancreas and both adrenal glands show no suspicious finding. The gallbladder is collapsed though demonstrates wall thickening. A fluid density lesion is noted about the interpolar region of the left kidney. Additional lesions located about both kidneys are too small to accurately characterize, including the 7 mm intermediate density lesion located within the interpolar region of the left kidney on image 41 of series 3. Both kidneys otherwise enhance symmetrically. There is no hydronephrosis or hydroureter. The urinary bladder is well distended and shows no suspicious finding. Uterus shows no suspicious abnormality. Neither ovary is well visualized. The small and large bowel appear normal in caliber. No areas of focal wall thickening. No evidence of bowel obstruction. A percutaneous gastrostomy tube is in position with the balloon located within the gastric antrum. Mild calcifications are noted about the abdominal aorta. No suspicious lymphadenopathy or drainable fluid collections are appreciated. However, there are several small/nonenlarged mesenteric lymph nodes which are nonspecific. A few additional small retroperitoneal lymph nodes are also evident, also nonspecific. Bone windows show no destructive osseous lesions. However, there is a suspected soft tissue thinning overlying the coccyx. IMPRESSION: Moderate periportal edema with gallbladder wall thickening, both of which are nonspecific. Correlate for aggressive rehydration. No other acute findings within the abdomen or pelvis. Simple cyst located within the interpolar region of the left kidney. Additional subcentimeter low-density lesions located about both kidneys are too small to accurately characterize, including the smaller intermediate density lesion located within the interpolar region of the left kidney. Suspected soft tissue thickening overlying the coccyx. Correlate with physical examination as this could indicate a decubitus ulcer. TECHNICAL DOCUMENTATION: Quality ID # [id number]: Final reports with documentation of one or more dose reduction techniques (e.g., Automated exposure control, adjustment of the mA and/or kV according to patient size, use of iterative reconstruction technique) copyright 2011 [employer]- All Rights Reserved
[2019-11-19] MEDS ORDERED: ONDANSETRON HCL INJ/PF 4 MG/2 ML SDV IV PRN (02:19)
[2019-11-19] MEDS ORDERED: MAG HYDROX/AL HYDROX/SIMETH SUSP 30 ML UDCUP PO PRN (02:19)
[2019-11-19] MEDS ORDERED: MAGNESIUM HYDROXIDE SUSP 30 ML UDCUP PO PRN (02:19)
[2019-11-19] MEDS: PROPRANOLOL HCL 20 MG TABLET PO SCH ×4 (02:44→21:36)
[2019-11-19] MEDS ORDERED: MORPHINE SULFATE 10 MG/ML INJ IV PRN ×2 (02:56)
[2019-11-19] MEDS: HEPARIN SOD (PORCINE) 5,000 UNIT/ML 1 ML VIAL SUBCUT SCH ×3 (06:22→21:33)
[2019-11-19] MEDS: PANTOPRAZOLE SODIUM 40 MG PACKET.DR GT SCH ×2 (06:22→17:34)
--- NOTE | 2019-11-19 06:26 | PDOC H&P ---
History of Present Illness Admission Date/PCP: 11/19/2019 01:45 No local PCP Patient complains of: Generalized weakness History of Present Illness: ADRIANA NICHOLE is a 29 year old female who presents the emergency room with a two-week history of generalized weakness. Patient admits that for the last 3 months she has not been taking her HIV medication or her hyperthyroid medications. Patient further admits that over the last 2 weeks she has been experiencing continuous moderate generalized weakness with associated decreased oral intake. Her weakness has been accompanied by occasional chest pains, occasional dyspnea on exertion, occasional nonproductive cough, intermittent mid abdominal pain, occasional episodes of vomiting and decreased oral intake. She has been using a feeding tube intermittently to provide nutrition and fluids for herself. She denies other associated or accompanying signs or symptoms. She admits prior similar episodes due to her noncompliance with medications. She has not identified any additional aggravating or ameliorating factors for her generalized weakness. In the emergency room she was found to be severely hyperthyroid, hypertensive and tachycardic in the 140's. The remainder of her evaluation was essentially unremarkable. She was subsequently admitted to observation status for further evaluation and treatment. Past Medical History Cardiac Medical History: Reports: Hypertension - preeclampsia during . Denies: Congestive Heart Failure, DVT, Myocardial Infarction, Hyperlipidema, Pulmonary Embolism Pulmonary Medical History: Denies: Asthma, Chronic Obstructive Pulmonary Disease (COPD) EENT Medical History: Reports: Throat - Chronic dysphagia Denies: Cataracts, Ears - Hearing aids Neurological Medical History: Denies: Hemorrhagic CVA, Ischemic CVA, Seizures Endocrine Medical History: Reports: Hyperthyroidism Denies: Diabetes Mellitus Type 1, Diabetes Mellitus Type 2, Hypothyroidism, Obesity Renal/ Medical History: Denies: Chronic Kidney Disease, Nephrolithiasis Malignancy Medical History: Reports: None GI Medical History: 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 Denies: Cirrhosis, Gastroesophageal Reflux Disease, Hepatitis, Peptic Ulcer Disease Musculoskeltal Medical History: Denies: Arthritis, Gout Skin Medical History: Denies: Eczema, Psoriasis Psychiatric Medical History: Reports: Depression, General Anxiety Disorder, Tobacco Dependency Denies: Alcohol Dependency, Substance Abuse Traumatic Medical History: Reports: None Hematology: Denies: Anemia, Bleeding Tendencies Infectious Medical History: Reports: HIV Past Surgical History Past Surgical History: Reports: Other - Upper endoscopy and PEG tube placement Social History Information Source: Patient Lives with: Friend Smoking Status: Current Every Day Smoker Electronic Cigarette use?: No Frequency of Alcohol Use: Social Hx Recreational Drug Use: No Drugs: None Hx Prescription Drug Abuse: No - Advance Directive Resuscitation Status: Full Code Surrogate healthcare decision maker:: Angie Swain Family History Family History: None, Other - HIV AIDS Parental Family History Reviewed: No - Patient was adopted but knows that her mother of AIDS Children Family History Reviewed: No Sibling(s) Family History Reviewed.: No Medication/Allergy Home Medications: Omeprazole 40 mg PO DAILY 08/13/19 Promethazine HCl [Phenergan 25 mg Tablet] 25 mg PO Q6HP PRN 08/13/19 Sucralfate [Carafate 1 gm Tablet] 1 gm PO ACHS 08/13/19 Fluconazole [Diflucan 100 mg Tablet] 200 mg PO QHS #7 tablet 08/19/19 Methimazole [Tapazole 5 mg Tablet] 5 mg PO Q8 #90 tablet 08/19/19 Metoprolol Tartrate [Lopressor 50 mg Tablet] 25 mg PO Q8 #90 tablet 08/19/19 Sulfamethoxazole/Trimethoprim [Septra Susp 800-160 mg/20 ml] 20 ml PO DAILY #600 udc 08/19/19 Sulfamethoxazole/Trimethoprim [Septra Susp 800-160 mg/20 ml] 20 ml PO Q8 #950 ml 08/19/19 Allergies/Adverse Reactions: No Known Allergies Allergy (Verified 07/18/19 18:25) Review of Systems Constitutional: PRESENT: as per HPI, anorexia, fever(s) - Subjective, weakness - Generalized Eyes: ABSENT: visual disturbances, other - Eye pain Ears: ABSENT: hearing changes, other - Ear pain Nose, Mouth, and Throat: ABSENT: headache(s), mouth pain, sore throat Cardiovascular: PRESENT: as per HPI, chest pain. ABSENT: palpitations Respiratory: PRESENT: as per HPI, cough, dyspnea Gastrointestinal: PRESENT: as per HPI, abdominal pain, nausea, vomiting. ABSENT: constipation, diarrhea Genitourinary: ABSENT: dysuria, hematuria Musculoskeletal: PRESENT: as per HPI, muscle weakness - Generalized. ABSENT: back pain, joint swelling Integumentary: ABSENT: pruritus, rash Neurological: ABSENT: confusion, convulsions, focal weakness, memory loss, syncope Psychiatric: PRESENT: depression. ABSENT: anxiety Endocrine: PRESENT: heat intolerance. ABSENT: cold intolerance Hematologic/Lymphatic: ABSENT: easy bleeding, easy bruising Allergic/Immunologic: ABSENT: seasonal rhinorrhea Physical Exam Vital Signs: Temp Pulse Resp BP Pulse Ox 98.4 F 170 H 25 H 140/104 H 100 11/18/19 22:58 11/18/19 19:36 11/19/19 01:00 11/18/19 23:01 11/19/19 01:00 Intake & Output 11/17/19 11/18/19 11/19/19 23:59 23:59 23:59 Intake Total 1999 1000 Balance 1999 1000 Weight 28.7 kg General appearance: PRESENT: no acute distress, cooperative, thin Head exam: PRESENT: atraumatic, normocephalic Eye exam: PRESENT: conjunctiva pink. ABSENT: conjunctival injection, scleral icterus Ear exam: PRESENT: normal external ear exam. ABSENT: bleeding, drainage Mouth exam: PRESENT: dry mucosa, neck supple Neck exam: ABSENT: thyromegaly, tracheal deviation Respiratory exam: PRESENT: clear to auscultation ty, symmetrical, unlabored Cardiovascular exam: PRESENT: RRR, tachycardia. ABSENT: clicks, gallop, rubs Pulses: PRESENT: normal radial pulses, normal dorsalis pedis pul Vascular exam: PRESENT: normal capillary refill. ABSENT: pallor GI/Abdominal exam: PRESENT: normal bowel sounds, soft, other - PEG tube noted Rectal exam: PRESENT: deferred Extremities exam: ABSENT: joint swelling, pedal edema Musculoskeletal exam: ABSENT: deformity, dislocation Neurological exam: PRESENT: alert, oriented to person, oriented to place, oriented to time, oriented to situation, CN II-XII grossly intact. ABSENT: motor sensory deficit Psychiatric exam: PRESENT: depressed, normal mood Skin exam: PRESENT: dry, intact, warm. ABSENT: jaundice, rash, urticaria Results Laboratory Results: 11/18/19 21:30 11/18/19 21:30 11/18/19 11/18/19 11/18/19 21:04 21:30 21:30 WBC 5.2 RBC 5.02 Hgb 12.1 Hct 36.4 MCV 73 L MCH 24.0 L MCHC 33.1 RDW 14.1 H Plt Count 152 Seg Neutrophils % 77.6 VBG pH VBG pCO2 VBG HCO3 VBG Base Excess Sodium 138.4 Potassium 4.1 Chloride 98 Carbon Dioxide 27 Anion Gap 13 BUN 24 H Creatinine 0.35 L Est GFR ( Amer) > 60 Glucose 114 H Lactic Acid Calcium 9.8 Total Bilirubin 0.5 AST 41 H Alkaline Phosphatase 147 H Total Protein 7.8 Albumin 3.8 TSH Free T4 4.86 H Free T3 pg/mL 13.80 H Serum HCG, Qual Urine Color Urine Appearance Urine pH Ur Specific Tad Urine Protein Urine Glucose (UA) Urine Ketones Urine Blood Urine RBC (Auto) 11/18/19 11/18/19 11/18/19 21:30 21:30 21:30 WBC RBC Hgb Hct MCV MCH MCHC RDW Plt Count Seg Neutrophils % VBG pH 7.44 H VBG pCO2 40.5 VBG HCO3 26.7 VBG Base Excess 2.4 Sodium Potassium Chloride Carbon Dioxide Anion Gap BUN Creatinine Est GFR ( Amer) Glucose Lactic Acid 0.9 Calcium Total Bilirubin AST Alkaline Phosphatase Total Protein Albumin TSH < 0.01 L Free T4 Free T3 pg/mL Serum HCG, Qual Urine Color Urine Appearance Urine pH Ur Specific Tad Urine Protein Urine Glucose (UA) Urine Ketones Urine Blood Urine RBC (Auto) 11/18/19 11/18/19 21:30 23:59 WBC RBC Hgb Hct MCV MCH MCHC RDW Plt Count Seg Neutrophils % VBG pH VBG pCO2 VBG HCO3 VBG Base Excess Sodium Potassium Chloride Carbon Dioxide Anion Gap BUN Creatinine Est GFR ( Amer) Glucose Lactic Acid Calcium Total Bilirubin AST Alkaline Phosphatase Total Protein Albumin TSH Free T4 Free T3 pg/mL Serum HCG, Qual NEGATIVE Urine Color YELLOW Urine Appearance CLEAR Urine pH 7.0 Ur Specific Tad 1.026 Urine Protein 100 H Urine Glucose (UA) NEGATIVE Urine Ketones NEGATIVE Urine Blood NEGATIVE Urine RBC (Auto) 3 11/18/19 21:04 Troponin I < 0.012 Impressions: Chest X-Ray 11/18/19 21:04 IMPRESSION: 1. No acute cardiothoracic abnormality. Abdomen/Pelvis CT 11/18/19 22:47 IMPRESSION: Moderate periportal edema with gallbladder wall thickening, both of which are nonspecific. Correlate for aggressive rehydration. No other acute findings within the abdomen or pelvis. Simple cyst located within the interpolar region of the left kidney. Additional subcentimeter low-density lesions located about both kidneys are too small to accurately characterize, including the smaller intermediate density lesion located within the interpolar region of the left kidney. Suspected soft tissue thickening overlying the coccyx. Correlate with physical examination as this could indicate a decubitus ulcer. TECHNICAL DOCUMENTATION: Quality ID # 436: Final reports with documentation of one or more dose reduction techniques (e.g., Automated exposure control, adjustment of the mA and/or kV according to patient size, use of iterative reconstruction technique) copyright 2011 [employer]- All Rights Reserved Assessment and Plan - Diagnosis (1) Thyrotoxicosis Qualifiers: Thyrotoxicosis type: unspecified thyrotoxicosis type Thyrotoxic crisis or storm presence: with thyrotoxic crisis or storm Qualified Code(s): E05.91 - Thyrotoxicosis, unspecified with thyrotoxic crisis or storm Is this a current diagnosis for this admission?: Yes (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 She received routine supportive and symptomatic cares. She will be treated with IV and oral Inderal for the tachycardia and hypertension associated with thyrotoxicosis and she will be started on Tapazole 5 mg p.o. every 8 hours as soon as the medication is available from the hospital pharmacy. She will also be restarted on her HIVAIDS regimen as soon as she is released and can tack picker a prescription at the pharmacy. Emphasis at the time of discharge on the absolute necessity of complying with her medical regimen and efforts that can be taken to simplify it such as combining the Tapazole dose into a single dose over the course of the next 4 weeks (2 weeks of 5 mg every 8 hours, then 2 weeks of 7.5 mg every 12 hours, then 15 mg p.o. daily thereafter), she should also be on a single daily dose HIV-AIDS medication. services engineer/discharge planning should see the patient immediately in the morning to help assist in getting her established for follow-up and aid in getting her medications and tube feeding supplies. Patient may have morphine 2 to 4 mg IV every 2 hours on an as-needed basis for control of pain during her observation. - Time Time Spent with patient: 15-24 minutes Smoking Cessation Education: 3 to 10 minutes Medications reviewed and adjusted accordingly: Yes - Inpatient Certification Based on my medical assessment, after consideration of the patient's comorbidities, presenting symptoms, or acuity I expect that the services needed warrant INPATIENT care.: No I certify that my determination is in accordance with my understanding of Medicare's requirements for reasonable and necessary INPATIENT services [42 CFR 412.3e].: No
[2019-11-19] MEDS: METHIMAZOLE 5 MG TABLET PO SCH ×3 (06:56→21:36)
[2019-11-19 07:09] LABS: CREATINE KINASE MB 0.37 ng/mL (<4.55)
[2019-11-19 07:16] LABS: TROPONIN I < 0.012 ng/mL
--- NOTE | 2019-11-19 07:37 | EKG REPORT ---
SEVERITY:- ABNORMAL ECG - SINUS TACHYCARDIA LVH RA ENLARGEMENT : Confirmed by: Brendan Aranda MD 19-Nov-2019 07:37:23
[2019-11-19] MEDS ORDERED: FAMOTIDINE 20 MG TABLET PO SCH (10:00)
[2019-11-19] MEDS: DOCUSATE SODIUM 100 MG CAPSULE PO SCH ×2 (11:07→17:38)
[2019-11-19] MEDS: MORPHINE SULFATE 10 MG/ML INJ IV PRN ×3 (11:20→22:57)
[2019-11-19 11:24] LABS: CREATINE KINASE MB 0.32 ng/mL (<4.55)
[2019-11-19 11:27] LABS: TROPONIN I < 0.012 ng/mL
[2019-11-19 16:28] LABS: CREATINE KINASE MB 1.04 ng/mL (<4.55)
[2019-11-19 16:32] LABS: TROPONIN I < 0.012 ng/mL
[2019-11-19] MEDS: PROMETHAZINE HCL 6.25 MG/5 ML SYRUP 60 ML GT PRN (22:52)
[2019-11-20] MEDS: HEPARIN SOD (PORCINE) 5,000 UNIT/ML 1 ML VIAL SUBCUT SCH ×3 (05:44→22:26)
[2019-11-20] MEDS: METHIMAZOLE 5 MG TABLET PO SCH ×3 (05:50→22:25)
[2019-11-20] MEDS: PROPRANOLOL HCL 20 MG TABLET PO SCH ×3 (05:50→22:26)
[2019-11-20] MEDS: PANTOPRAZOLE SODIUM 40 MG PACKET.DR GT SCH ×2 (05:50→17:34)
[2019-11-20] MEDS: DOCUSATE SODIUM 100 MG CAPSULE PO SCH ×2 (10:08→17:33)
[2019-11-20] MEDS ORDERED: NORMAL SALINE 500 ML IV PRN (11:15)
[2019-11-20 11:37] LABS: % CD 4 POS LYMPH 22.4 % (30.8-58.5); % CD 8 POS LYMPH 66.4 % (12.0-35.5); ABSOLUTE CD 4 HELPER 179 /uL (359-1519); ABSOLUTE CD 8 SUPPRESSOR 531 /uL (109-897); CD BASOPHILS 0 % (Not Estab.); CD EOSINOPHILS 0 % (Not Estab.); CD MONOCYTES 13 % (Not Estab.); CD NEUTROPHILS 63 % (Not Estab.); CD4/CD8 RATIO 0.34 (0.92-3.72); HEMOGLOBIN 8.6 g/dL (11.1-15.9); IMMATURE GRANULOCYTES 0 % (Not Estab.); LYMPHS(ABSOLUTE) 0.8 x10E3/uL (0.7-3.1); MCHC 33.6 g/dL (31.5-35.7); MCV 72 fL (79-97); PLATELETS 120 x10E3/uL (150-450); RBC 3.54 x10E6/uL (3.77-5.28); WBC 3.2 x10E3/uL (3.4-10.8)
--- NOTE | 2019-11-20 13:26 | PDOC PROGRESS REPORT ---
Subjective Progress Note for:: 11/20/19 Subjective:: This is a 29-year-old female with HIV who has been off her HIV medications due to insurance issues who initially presented with weakness, exertional shortness of breath and chest pain. She was found to have thyrotoxicosis. She was started on Tapazole and Inderal. Patient relays that she was previously diagnosed with Graves' disease but has also been off her all other medications due to losing her insurance last year. No acute event overnight. Her heart rate has slightly improved from the 120s- 140s down to the high 90s to 110s overnight. This morning, he did have a few episodes of heart rate going up to 120s. Her blood pressures have improved overnight. She says her shortness of breath has improved. Denies chest pain at the moment. Reason For Visit: THYROTOXICOSIS,HIV AIDS,MEDICAL NONCOMPLIANCE Physical Exam Vital Signs: Temp Pulse Resp BP Pulse Ox 98.5 F 111 H 20 124/80 100 11/20/19 11:42 11/20/19 11:42 11/20/19 11:42 11/20/19 11:42 11/20/19 11:42 Intake & Output 11/19/19 11/20/19 11/21/19 06:59 06:59 06:59 Intake Total 3000 655 915 Balance 3000 655 915 Weight 63 lb 4.363 oz 72 lb 8.513 oz General appearance: PRESENT: no acute distress, well-developed, well-nourished Head exam: PRESENT: atraumatic, normocephalic Eye exam: PRESENT: conjunctiva pink, EOMI, PERRLA. ABSENT: scleral icterus Ear exam: PRESENT: normal external ear exam Mouth exam: PRESENT: moist, tongue midline Neck exam: ABSENT: carotid bruit, JVD, lymphadenopathy, thyromegaly Respiratory exam: PRESENT: clear to auscultation ty. ABSENT: rales, rhonchi, wheezes Cardiovascular exam: PRESENT: RRR, tachycardia. ABSENT: diastolic murmur, rubs, systolic murmur Pulses: PRESENT: normal dorsalis pedis pul GI/Abdominal exam: PRESENT: normal bowel sounds, soft. ABSENT: distended, guarding, mass, organolmegaly, rebound, tenderness Rectal exam: PRESENT: deferred Extremities exam: PRESENT: full ROM. ABSENT: calf tenderness, clubbing, pedal edema Neurological exam: PRESENT: alert, awake, oriented to person, oriented to place, oriented to time, oriented to situation, CN II-XII grossly intact. ABSENT: motor sensory deficit Results Laboratory Results: 11/18/19 21:30 11/18/19 21:30 11/18/19 11/19/19 11/19/19 21:04 06:23 06:23 Creatine Kinase < 20 L CK-MB (CK-2) 0.37 Troponin I < 0.012 < 0.012 11/19/19 11/19/19 11/19/19 10:16 10:16 15:44 Creatine Kinase < 20 L < 20 L CK-MB (CK-2) 0.32 Troponin I < 0.012 11/19/19 15:44 Creatine Kinase CK-MB (CK-2) 1.04 Troponin I < 0.012 Impressions: Chest X-Ray 11/18/19 21:04 IMPRESSION: 1. No acute cardiothoracic abnormality. Abdomen/Pelvis CT 11/18/19 22:47 IMPRESSION: Moderate periportal edema with gallbladder wall thickening, both of which are nonspecific. Correlate for aggressive rehydration. No other acute findings within the abdomen or pelvis. Simple cyst located within the interpolar region of the left kidney. Additional subcentimeter low-density lesions located about both kidneys are too small to accurately characterize, including the smaller intermediate density lesion located within the interpolar region of the left kidney. Suspected soft tissue thickening overlying the coccyx. Correlate with physical examination as this could indicate a decubitus ulcer. TECHNICAL DOCUMENTATION: Quality ID # 436: Final reports with documentation of one or more dose reduction techniques (e.g., Automated exposure control, adjustment of the mA and/or kV according to patient size, use of iterative reconstruction technique) copyright 2011 [employer]- All Rights Reserved Assessment and Plan - Diagnosis (1) Thyrotoxicosis Is this a current diagnosis for this admission?: Yes Plan: Will increase Tapazole to 10 mg q8. Continue Inderal. She will need outpatient endocrinology appointment. (2) HIV (human immunodeficiency virus infection) Qualifiers: HIV symptom status: unspecified Qualified Code(s): B20 - Human immunodeficiency virus [HIV] disease Is this a current diagnosis for this admission?: Yes Plan: Awaiting records from her infectious disease provider at [facility]. She says that she was seen last by ID for almost over a year now. Will also consult infectious disease for further recommendations. CD4 count pending. (3) Dehydration Is this a current diagnosis for this admission?: Yes Plan: Continue IV fluids. - Plan Summary Summary: Patient will be admitted to observation status in a telemetry bed. She received routine supportive and symptomatic cares. She will be treated with IV and oral Inderal for the tachycardia and hypertension associated with thyrotoxicosis and she will be started on Tapazole 5 mg p.o. every 8 hours as soon as the medication is available from the hospital pharmacy. She will also be restarted on her HIVAIDS regimen as soon as she is released and can pick remover a pres cription at the pharmacy. Emphasis at the time of discharge on the absolute necessity of complying with her medical regimen and efforts that can be taken to simplify it such as combining the Tapazole dose into a single dose over the course of the next 4 weeks (2 weeks of 5 mg every 8 hours, then 2 weeks of 7.5 mg every 12 hours, then 15 mg p.o. daily thereafter), she should also be on a single daily dose HIV-AIDS medication. information services tech/discharge planning should see the patient immediately in the morning to help assist in getting her established for follow-up and aid in getting her medications and tube feeding supplies. Patient may have morphine 2 to 4 mg IV every 2 hours on an as-needed basis for control of pain during her observation. - Time Time Spent with patient: 25-34 minutes
[2019-11-20] MEDS: MORPHINE SULFATE 10 MG/ML INJ IV PRN (19:37)
[2019-11-21] MEDS: PROPRANOLOL HCL 20 MG TABLET PO SCH ×3 (05:26→22:10)
[2019-11-21] MEDS: METHIMAZOLE 5 MG TABLET PO SCH ×3 (05:26→22:10)
[2019-11-21] MEDS: PANTOPRAZOLE SODIUM 40 MG PACKET.DR GT SCH ×2 (05:27→17:36)
[2019-11-21] MEDS: HEPARIN SOD (PORCINE) 5,000 UNIT/ML 1 ML VIAL SUBCUT SCH ×3 (05:27→22:00)
[2019-11-21 07:17] LABS: RDW 14.3 % (12.3-15.4)
[2019-11-21 08:27] LABS: ABSOLUTE LYMPHOCYTES (AUTO) 0.5 10^3/uL (0.5-4.7); ABSOLUTE MONOCYTES (AUTO) 0.3 10^3/uL (0.1-1.4); ABSOLUTE NEUT (AUTO) 1.6 10^3/uL (1.7-8.2); BASOPHILS % (AUTO) 0.3 % (0-2); EOSINOPHILS % (AUTO) 0.7 % (0-6); HEMATOCRIT 28.8 % (36.0-47.0); MEAN CORPUSCULAR HEMOGLOBIN 23.8 pg (27.0-33.4); MEAN CORPUSCULAR HGB CONC 33.3 g/dL (32.0-36.0); MEAN CORPUSCULAR VOLUME 71 fl (80-97); MONOCYTES % (AUTO) 11.3 % (3-13); PLATELET COUNT 103 10^3/uL (150-450); RED BLOOD COUNT 4.03 10^6/uL (3.72-5.28); RED CELL DISTRIBUTION WIDTH 14.3 % (11.5-14.0); SEGMENTED NEUTROPHILS % (AUTO) 65.7 % (42-78); TOTAL CELLS COUNTED % (AUTO) 100 %
[2019-11-21 08:48] LABS: HEMOGLOBIN 9.6 g/dL (12.0-15.5); WHITE BLOOD COUNT 2.5 10^3/uL (4.0-10.5)
[2019-11-21 08:52] LABS: ANION GAP 8 (5-19); BLOOD UREA NITROGEN 12 mg/dL (7-20); CALCIUM 8.7 mg/dL (8.4-10.2); CARBON DIOXIDE 25 mmol/L (22-30); CHLORIDE 105 mmol/L (98-107); GLUCOSE 82 mg/dL (75-110); POTASSIUM 3.7 mmol/L (3.6-5.0)
[2019-11-21 09:07] LABS: FREE T3 4.91 pg/mL (2.77-5.27); FREE T4 (FREE THYROXINE) 2.99 ng/dL (0.78-2.19)
[2019-11-21 09:39] LABS: THYROID STIMULATING HORMONE < 0.01 uIU/mL (0.47-4.68)
[2019-11-21] MEDS: DOCUSATE SODIUM 100 MG CAPSULE PO SCH ×2 (10:31→17:33)
[2019-11-21] MEDS: MORPHINE SULFATE 10 MG/ML INJ IV PRN ×2 (10:50→20:01)
--- NOTE | 2019-11-21 14:05 | PDOC PROGRESS REPORT ---
Subjective Progress Note for:: 11/21/19 Subjective:: This is a 29-year-old female with HIV who has been off her HIV medications due to insurance issues who initially presented with weakness, exertional shortness of breath and chest pain. She was found to have thyrotoxicosis. She was started on Tapazole and Inderal. Patient relays that she was previously diagnosed with Graves' disease but has also been off her all other medications due to losing her insurance last year. 11/20: Her heart rate has slightly improved from the 120s-140s down to the high 90s to 110s overnight. This morning, he did have a few episodes of heart rate going up to 120s. Her blood pressures have improved overnight. She says her shortness of breath has improved. Denies chest pain at the moment. 11/21: No acute event overnight. Heart rate and blood pressure continue to gradually improve. She says she feels better today. Denies chest pain or shortness of breath. Reviewed records from [facility]. Patient was on Genvoya and Prezista before. Her previous CD4 count was checked in January 2018 and was 342. Reason For Visit: THYROTOXICOSIS,HIV AIDS,MEDICAL NONCOMPLIANCE Physical Exam Vital Signs: Temp Pulse Resp BP Pulse Ox 98.5 F 106 H 18 130/89 H 100 11/21/19 12:09 11/21/19 12:09 11/21/19 12:09 11/21/19 12:09 11/21/19 12:09 Intake & Output 11/20/19 11/21/19 11/22/19 06:59 06:59 06:59 Intake Total 655 1075 120 Balance 655 1075 120 Weight 72 lb 8.513 oz 70 lb 8.767 oz General appearance: PRESENT: no acute distress, thin Head exam: PRESENT: atraumatic, normocephalic Eye exam: PRESENT: conjunctiva pink, EOMI, PERRLA. ABSENT: scleral icterus Ear exam: PRESENT: normal external ear exam Mouth exam: PRESENT: moist, tongue midline Neck exam: ABSENT: carotid bruit, JVD, lymphadenopathy, thyromegaly Respiratory exam: PRESENT: clear to auscultation ty. ABSENT: rales, rhonchi, wheezes Cardiovascular exam: PRESENT: tachycardia. ABSENT: diastolic murmur, rubs, systolic murmur Pulses: PRESENT: normal dorsalis pedis pul GI/Abdominal exam: PRESENT: normal bowel sounds, soft. ABSENT: distended, guarding, mass, organolmegaly, rebound, tenderness Rectal exam: PRESENT: deferred Extremities exam: PRESENT: full ROM. ABSENT: calf tenderness, clubbing, pedal edema Neurological exam: PRESENT: alert, awake, oriented to person, oriented to place, oriented to time, oriented to situation, CN II-XII grossly intact. ABSENT: motor sensory deficit Results Laboratory Results: 11/21/19 07:41 11/21/19 07:41 11/21/19 11/21/19 11/21/19 07:41 07:41 07:41 WBC 2.5 L D RBC 4.03 Hgb 9.6 L D Hct 28.8 L MCV 71 L MCH 23.8 L MCHC 33.3 RDW 14.3 H Plt Count 103 L Seg Neutrophils % 65.7 Sodium 137.9 Potassium 3.7 Chloride 105 Carbon Dioxide 25 Anion Gap 8 BUN 12 Creatinine 0.22 L Est GFR ( Amer) > 60 Glucose 82 Calcium 8.7 TSH < 0.01 L Free T4 2.99 H Free T3 pg/mL 4.91 11/18/19 11/19/19 11/19/19 21:04 06:23 06:23 Creatine Kinase < 20 L CK-MB (CK-2) 0.37 Troponin I < 0.012 < 0.012 11/19/19 11/19/19 11/19/19 10:16 10:16 15:44 Creatine Kinase < 20 L < 20 L CK-MB (CK-2) 0.32 Troponin I < 0.012 11/19/19 15:44 Creatine Kinase CK-MB (CK-2) 1.04 Troponin I < 0.012 Impressions: Chest X-Ray 11/18/19 21:04 IMPRESSION: 1. No acute cardiothoracic abnormality. Abdomen/Pelvis CT 11/18/19 22:47 IMPRESSION: Moderate periportal edema with gallbladder wall thickening, both of which are nonspecific. Correlate for aggressive rehydration. No other acute findings within the abdomen or pelvis. Simple cyst located within the interpolar region of the left kidney. Additional subcentimeter low-density lesions located about both kidneys are too small to accurately characterize, including the smaller intermediate density lesion located within the interpolar region of the left kidney. Suspected soft tissue thickening overlying the coccyx. Correlate with physical examination as this could indicate a decubitus ulcer. TECHNICAL DOCUMENTATION: Quality ID # 436: Final reports with documentation of one or more dose reduction techniques (e.g., Automated exposure control, adjustment of the mA and/or kV according to patient size, use of iterative reconstruction technique) copyright 2011 [employer]- All Rights Reserved Assessment and Plan - Diagnosis (1) Thyrotoxicosis Is this a current diagnosis for this admission?: Yes Plan: 11/20: Secondary to untreated Grave's disease. Will increase Tapazole to 10 mg q8. Continue Inderal. She will need outpatient endocrinology appointment. 11/21: Improving. Continue Tapazole and Inderal. (2) HIV (human immunodeficiency virus infection) Qualifiers: HIV symptom status: unspecified Qualified Code(s): B20 - Human im munodeficiency virus [HIV] disease Is this a current diagnosis for this admission?: Yes Plan: 11/20: Awaiting records from her infectious disease provider at [facility]. She says that she was seen last by ID for almost over a year now. Will also consult infectious disease for further recommendations. CD4 count pending. 11/21: CD4 on this admission is 179 meeting AIDS definition. Reviewed records from [facility]. Patient was on Genvoya and Prezista before. Her previous CD4 count was checked in January 2018 and was 342. Await further recommendations from ID. (3) Dehydration Is this a current diagnosis for this admission?: Yes Plan: Continue IV fluids. - Plan Summary Summary: Patient will be admitted to observation status in a telemetry bed. She received routine supportive and symptomatic cares. She will be treated with IV and oral Inderal for the tachycardia and hypertension associated with thyrotoxicosis and she will be started on Tapazole 5 mg p.o. every 8 hours as soon as the medication is available from the hospital pharmacy. She will also be restarted on her HIVAIDS regimen as soon as she is released and can grape picker a prescription at the pharmacy. Emphasis at the time of discharge on the absolute necessity of complying with her medical regimen and efforts that can be taken to simplify it such as combining the Tapazole dose into a single dose over the course of the next 4 weeks (2 weeks of 5 mg every 8 hours, then 2 weeks of 7.5 mg every 12 hours, then 15 mg p.o. daily thereafter), she should also be on a single daily dose HIV-AIDS medication. services executive/discharge planning should see the patient immediately in the morning to help assist in getting her established for follow-up and aid in getting her medications and tube feeding supplies. Patient may have morphine 2 to 4 mg IV every 2 hours on an as-needed basis for control of pain during her observation. - Time Time Spent with patient: 25-34 minutes
--- NOTE | 2019-11-21 15:05 | PSYCHOLOGICAL NOTE ---
Psych Note - Psych Note Date seen by psych provider: 11/21/19 Time seen by psych provider: 13:30 Psych Note: Reason for Consult: depression Medication recommendations per [facility]'s contracted psychiatrist Dr. Peter MARKS are as follows Zyprexa Zydis 2.5mg twice daily Impression/Plan: Patient is cleared from acute psychiatric services. Patient appropriately engaged with clinician, discussing her medical health, her history of non compliance and her emotions connected to these events. Patient confirms having "dark" thought (ie passive suicidal ideation); however, clearly states she has never engaged in self harm of cutting or burning and denies wanting to . She confirms she would like medication to help her with her overwhelming emotions; medication recommendations have been provided. Dr. Kelsey was consulted on the are and management of this patient; attending physician is in agreement with recommendations and disposition. Thank you for this consult; please re-consult if new concerns arise.
[2019-11-22] MEDS: HEPARIN SOD (PORCINE) 5,000 UNIT/ML 1 ML VIAL SUBCUT SCH ×3 (05:39→21:59)
[2019-11-22] MEDS: METHIMAZOLE 5 MG TABLET PO SCH ×3 (05:45→21:58)
[2019-11-22] MEDS: PANTOPRAZOLE SODIUM 40 MG PACKET.DR GT SCH ×2 (05:45→16:18)
[2019-11-22] MEDS: PROPRANOLOL HCL 20 MG TABLET PO SCH ×3 (05:45→21:59)
[2019-11-22] MEDS: DOCUSATE SODIUM 100 MG CAPSULE PO SCH ×2 (09:17→20:23)
[2019-11-22] MEDS ORDERED: ACETAMINOPHEN 325 MG TABLET PO PRN (09:32)
[2019-11-22] MEDS: MORPHINE SULFATE 10 MG/ML INJ IV PRN ×2 (12:36→22:27)
--- NOTE | 2019-11-22 14:37 | Progress Note ---
Provider Note Provider Note: [facility] Telephone Advice - Brief note Chart reviewed and discussed with the Dr. Guthrie. Patient has HIV/AIDS, admitted due to thyrotoxicosis. She was previously on Genvoya and Prezista for her HIV infection, well controlled in the past until she lost medical insurance. She has been off antiretroviral therapy for months. Her last CD4 count 179. Unknown viral load. Unknown previous Genotype to look for resistance. She had an HIV provider in [facility]. Per Dr. Guthrie, patient already has insurance and she has an appointment to re engage in care with her previous HIV provider. There is no evidence of an opportunistic infection at this time and she will need a new genotype (by her HIV provider) to determine which antiretoviral therapy is better for her now that she is willing to re engage in care. Cassie frey MD [facility] [phone]
--- NOTE | 2019-11-22 16:44 | PDOC PROGRESS REPORT ---
Subjective Progress Note for:: 11/22/19 Subjective:: This is a 29-year-old female with HIV who has been off her HIV medications due to insurance issues who initially presented with weakness, exertional shortness of breath and chest pain. She was found to have thyrotoxicosis. She was started on Tapazole and Inderal. Patient relays that she was previously diagnosed with Graves' disease but has also been off her all other medications due to losing her insurance last year. 11/20: Her heart rate has slightly improved from the 120s-140s down to the high 90s to 110s overnight. This morning, he did have a few episodes of heart rate going up to 120s. Her blood pressures have improved overnight. She says her shortness of breath has improved. Denies chest pain at the moment. 11/21: Heart rate and blood pressure continue to gradually improve. She says she feels better today. Denies chest pain or shortness of breath. Reviewed records from [facility]. Patient was on Genvoya and Prezista before. Her previous CD4 count was checked in January 2018 and was 342. 11/22: No acute event overnight. She says she feels much better today. Blood pressures have been well controlled now. Heart rate continues to improve down to the 90s. Denies chest pain or shortness of breath. Anticipate discharge in the next 24 hours. Reason For Visit: THYROTOXICOSIS,HIV AIDS,MEDICAL NONCOMPLIANCE Physical Exam Vital Signs: Temp Pulse Resp BP Pulse Ox 98.2 F 79 16 106/70 96 11/22/19 15:17 11/22/19 15:17 11/22/19 15:17 11/22/19 15:17 11/22/19 15:17 Intake & Output 11/21/19 11/22/19 11/23/19 06:59 06:59 06:59 Intake Total 1075 852 50 Balance 1075 852 50 Weight 70 lb 8.767 oz 70 lb 5.239 oz 70 lb 5.239 oz General appearance: PRESENT: no acute distress, thin Head exam: PRESENT: atraumatic, normocephalic Eye exam: PRESENT: conjunctiva pink, EOMI, PERRLA. ABSENT: scleral icterus Ear exam: PRESENT: normal external ear exam Mouth exam: PRESENT: moist, tongue midline Neck exam: ABSENT: carotid bruit, JVD, lymphadenopathy, thyromegaly Respiratory exam: PRESENT: clear to auscultation ty. ABSENT: rales, rhonchi, wheezes Cardiovascular exam: PRESENT: RRR. ABSENT: diastolic murmur, rubs, systolic murmur Pulses: PRESENT: normal dorsalis pedis pul GI/Abdominal exam: PRESENT: normal bowel sounds, soft. ABSENT: distended, guarding, mass, organolmegaly, rebound, tenderness Rectal exam: PRESENT: deferred Extremities exam: PRESENT: full ROM. ABSENT: calf tenderness, clubbing, pedal edema Neurological exam: PRESENT: alert, awake, oriented to person, oriented to place, oriented to time, oriented to situation, CN II-XII grossly intact. ABSENT: motor sensory deficit Results Laboratory Results: 11/21/19 07:41 11/21/19 07:41 11/18/19 11/19/19 11/19/19 21:04 06:23 06:23 Creatine Kinase < 20 L CK-MB (CK-2) 0.37 Troponin I < 0.012 < 0.012 11/19/19 11/19/19 11/19/19 10:16 10:16 15:44 Creatine Kinase < 20 L < 20 L CK-MB (CK-2) 0.32 Troponin I < 0.012 11/19/19 15:44 Creatine Kinase CK-MB (CK-2) 1.04 Troponin I < 0.012 Impressions: Chest X-Ray 11/18/19 21:04 IMPRESSION: 1. No acute cardiothoracic abnormality. Abdomen/Pelvis CT 11/18/19 22:47 IMPRESSION: Moderate periportal edema with gallbladder wall thickening, both of which are nonspecific. Correlate for aggressive rehydration. No other acute findings within the abdomen or pelvis. Simple cyst located within the interpolar region of the left kidney. Additional subcentimeter low-density lesions located about both kidneys are too small to accurately characterize, including the smaller intermediate density lesion located within the interpolar region of the left kidney. Suspected soft tissue thickening overlying the coccyx. Correlate with physical examination as this could indicate a decubitus ulcer. TECHNICAL DOCUMENTATION: Quality ID # 436: Final reports with documentation of one or more dose reduction techniques (e.g., Automated exposure control, adjustment of the mA and/or kV according to patient size, use of iterative reconstruction technique) copyright 2011 [employer]- All Rights Reserved Assessment and Plan - Diagnosis (1) Thyrotoxicosis Is this a current diagnosis for this admission?: Yes Plan: 11/20: Secondary to untreated Grave's disease. Will increase Tapazole to 10 mg q8. Continue Inderal. She will need outpatient endocrinology appointment. 11/21: Improving. 11/22: Much improved. Continue Tapazole and Inderal. (2) HIV (human immunodeficiency virus infection) Qualifiers: HIV symptom status: unspecified Qualified Code(s): B20 - Human immunodeficiency virus [HIV] disease Is this a current diagnosis for this admission?: Yes Plan: 11/20: Awaiting records from her infectious disease provider at [facility]. She says that she was seen last by ID for almost over a year now. Will also consult infectious disease for further recommendations. CD4 count pending. 11/21: CD4 on this admission is 179 meeting AIDS definition. Reviewed records from [facility]. Patient was on Genvoya and Prezista before. Her previous CD4 count was checked in January 2018 and was 342. 11/22: She has a confirmed appointment with [facility]'s satellite clinic in [facility] where she will need to do a genotype testing prior to restarting her HIV meds. (3) Dehydration Is this a current diagnosis for this admission?: Yes Plan: Improved. - Time Time Spent with patient: 25-34 minutes
[2019-11-22] MEDS: PROMETHAZINE HCL 6.25 MG/5 ML SYRUP 60 ML GT PRN (22:10)
[2019-11-23] MEDS: PANTOPRAZOLE SODIUM 40 MG PACKET.DR GT SCH (06:25)
[2019-11-23] MEDS: PROPRANOLOL HCL 20 MG TABLET PO SCH ×2 (06:25→14:00)
[2019-11-23] MEDS: HEPARIN SOD (PORCINE) 5,000 UNIT/ML 1 ML VIAL SUBCUT SCH ×2 (06:25→14:00)
[2019-11-23 08:10] LABS: ABSOLUTE LYMPHOCYTES (AUTO) 0.5 10^3/uL (0.5-4.7); ABSOLUTE MONOCYTES (AUTO) 0.4 10^3/uL (0.1-1.4); ABSOLUTE NEUT (AUTO) 1.8 10^3/uL (1.7-8.2); BASOPHILS % (AUTO) 0.2 % (0-2); EOSINOPHILS % (AUTO) 0.3 % (0-6); HEMATOCRIT 28.5 % (36.0-47.0); HEMOGLOBIN 9.8 g/dL (12.0-15.5); LYMPHOCYTES % (AUTO) 19.7 % (13-45); MEAN CORPUSCULAR HEMOGLOBIN 24.4 pg (27.0-33.4); MEAN CORPUSCULAR HGB CONC 34.6 g/dL (32.0-36.0); MEAN CORPUSCULAR VOLUME 71 fl (80-97); MONOCYTES % (AUTO) 15.1 % (3-13); PLATELET COUNT 110 10^3/uL (150-450); RED BLOOD COUNT 4.04 10^6/uL (3.72-5.28); RED CELL DISTRIBUTION WIDTH 14.3 % (11.5-14.0); SEGMENTED NEUTROPHILS % (AUTO) 64.7 % (42-78); TOTAL CELLS COUNTED % (AUTO) 100 %; WHITE BLOOD COUNT 2.8 10^3/uL (4.0-10.5)
[2019-11-23 08:23] LABS: ANION GAP 9 (5-19); BLOOD UREA NITROGEN 12 mg/dL (7-20); CALCIUM 8.9 mg/dL (8.4-10.2); CARBON DIOXIDE 26 mmol/L (22-30); CHLORIDE 101 mmol/L (98-107); GLUCOSE 85 mg/dL (75-110); POTASSIUM 3.6 mmol/L (3.6-5.0)
[2019-11-23 08:40] LABS: FREE T3 3.49 pg/mL (2.77-5.27); FREE T4 (FREE THYROXINE) 2.38 ng/dL (0.78-2.19)
[2019-11-23 08:57] LABS: THYROID STIMULATING HORMONE < 0.01 uIU/mL (0.47-4.68)
[2019-11-23] MEDS: DOCUSATE SODIUM 100 MG CAPSULE PO SCH (09:55)
[2019-11-23] MEDS: METHIMAZOLE 5 MG TABLET PO SCH (09:55)
[2019-11-23 14:03] VITALS: BP 139/94
--- NOTE | 2019-11-23 19:04 | PDOC DISCHARGE SUMMARY ---
Impression - Admit/DC Date/PCP Admission Date/Primary Care Provider: 11/20/19 11:35 Discharge Date: 11/23/19 - Discharge Diagnosis (1) Thyrotoxicosis Is this a current diagnosis for this admission?: Yes (2) HIV (human immunodeficiency virus infection) Is this a current diagnosis for this admission?: Yes (3) Dehydration Is this a current diagnosis for this admission?: Yes - Additional Information Resuscitation Status: Full Code Discharge Diet: Other (Comments) Discharge Activity: Activity As Tolerated Prescriptions: Sulfamethoxazole/Trimethoprim [Bactrim Ds Tablet] 1 each PO Q3DAYS #30 tablet Propranolol HCl [Inderal 20 mg Tablet] 20 mg PO Q8 #90 tablet Methimazole [Tapazole] 10 mg PO Q12 #60 tablet Home Medications: Methimazole [Tapazole] 10 mg PO Q12 #60 tablet 11/23/19 Propranolol HCl [Inderal 20 mg Tablet] 20 mg PO Q8 #90 tablet 11/23/19 Sulfamethoxazole/Trimethoprim [Bactrim Ds Tablet] 1 each PO Q3DAYS #30 tablet 11/23/19 History of Present Illiness History of Present Illness: Admitting hospitalist's H&P: ADRIANA NICHOLE is a 29 year old female who presents the emergency room with a two-week history of generalized weakness. Patient admits that for the last 3 months she has not been taking her HIV medication or her hyperthyroid medications. Patient further admits that over the last 2 weeks she has been experiencing continuous moderate generalized weakness with associated decreased oral intake. Her weakness has been accompanied by occasional chest pains, occasional dyspnea on exertion, occasional nonproductive cough, intermittent mid abdominal pain, occasional episodes of vomiting and decreased oral intake. She has been using a feeding tube intermittently to provide nutrition and fluids for herself. She denies other associated or accompanying signs or symptoms. She admits prior similar episodes due to her noncompliance with medications. She has not identified any additional aggravating or ameliorating factors for her generalized weakness. In the emergency room she was found to be severely hyperthyroid, hypertensive and tachycardic in the 140's. The remainder of her evaluation was essentially unremarkable. She was subsequently admitted to observation status for further evaluation and treatment. Hospital Course Hospital Course: This is a 29-year-old female with HIV who has been off her HIV medications due to insurance issues who initially presented with weakness, exertional shortness of breath and chest pain. She was found to have thyrotoxicosis. She was started on Tapazole and Inderal. Records from [facility] where requested. Patient was previously diagnosed with Graves' disease. She was supposed to be on methimazole but due to insurance issues, she was lost to follow-up with her medical providers and has been off all her medications including her HIV meds and anti-hyperthyroid medications for several months now. She was previously diagnosed with AIDS as she had a CD4 count of 32 in October 2016. She was supposed to be on Prezista and Genvoya. She was previously on long-term Bactrim, azithromycin and Valtrex for prophylaxis due to her low CD4 count. Her CD4 342 in January 2018. touch up worker was also consulted. ID was also recommended. Her Medicaid was recently approved and she has now confirmed coverage for her appointments and medications. She has a confirmed appointment with the [facility] in [place] which she was following for her HIV on December 13. As she has been off her HIV meds for 7 to 8 months now, she will need genotype testing prior to being restarted on HAART. Her CD4 count was checked underscores and came back at 174. At this time, she will only need PCP prophyla xis and she will be discharged on Bactrim. She significantly improved with Tapazole and Inderal. Heart rate and blood pressure is well controlled. She was also given a new appointment with PCP. Terence avlarez will need a repeat BMP and thyroid panel in 1 to 2 weeks. She also need a repeat CBC to monitor her WBC count being on methimazole. She was also evaluated by psychiatry as she had depressed mood. Psych recommendations noted. Patient denies active suicidal ideations. She prefers not to be on any psychotropic medication at this time. Will also avoid typical antipsychotics or antidepressants at this time due to high risk of agranulocytosis given that she will need to be on methimazole. Also discussed that she will need endocrinology referral for further definitive treatment options for her Graves' disease. She has poor oral intake. She was encouraged to increase her intake and to continue her tube feedings at home. Home health will also be set up for her. Physical Exam Vital Signs: Temp Pulse Resp BP Pulse Ox 98.1 F 98 12 123/89 H 98 11/23/19 13:47 11/23/19 13:47 11/23/19 13:47 11/23/19 13:47 11/23/19 13:47 Intake & Output 11/22/19 11/23/19 11/24/19 06:59 06:59 06:59 Intake Total 852 440 Balance 852 440 Weight 70 lb 5.239 oz 68 lb 9.02 oz General appearance: PRESENT: no acute distress, thin Eye exam: PRESENT: conjunctiva pink, EOMI, PERRLA. ABSENT: scleral icterus Ear exam: PRESENT: normal external ear exam Mouth exam: PRESENT: moist, tongue midline Neck exam: ABSENT: carotid bruit, JVD, lymphadenopathy, thyromegaly Respiratory exam: PRESENT: clear to auscultation ty. ABSENT: rales, rhonchi, wheezes Cardiovascular exam: PRESENT: RRR. ABSENT: diastolic murmur, rubs, systolic murmur Pulses: PRESENT: normal dorsalis pedis pul GI/Abdominal exam: PRESENT: normal bowel sounds, soft. ABSENT: distended, guarding, mass, organolmegaly, rebound, tenderness Rectal exam: PRESENT: deferred Neurological exam: PRESENT: alert, awake, oriented to person, oriented to place, oriented to time, oriented to situation, CN II-XII grossly intact. ABSENT: motor sensory deficit Results Laboratory Results: WBC 2.8 10^3/uL (4.0-10.5) L 11/23/19 07:53 RBC 4.04 10^6/uL (3.72-5.28) 11/23/19 07:53 Hgb 9.8 g/dL (12.0-15.5) L 11/23/19 07:53 Hct 28.5 % (36.0-47.0) L 11/23/19 07:53 MCV 71 fl (80-97) L 11/23/19 07:53 MCH 24.4 pg (27.0-33.4) L 11/23/19 07:53 MCHC 34.6 g/dL (32.0-36.0) 11/23/19 07:53 RDW 14.3 % (11.5-14.0) H 11/23/19 07:53 Plt Count 110 10^3/uL (150-450) L 11/23/19 07:53 Lymph % (Auto) 19.7 % (13-45) 11/23/19 07:53 Sutton % (Auto) 15.1 % (3-13) H 11/23/19 07:53 Eos % (Auto) 0.3 % (0-6) 11/23/19 07:53 Baso % (Auto) 0.2 % (0-2) 11/23/19 07:53 Absolute Neuts (auto) 1.8 10^3/uL (1.7-8.2) 11/23/19 07:53 Absolute Lymphs (auto) 0.5 10^3/uL (0.5-4.7) 11/23/19 07:53 Absolute Monos (auto) 0.4 10^3/uL (0.1-1.4) 11/23/19 07:53 Absolute Eos (auto) 0.0 10^3/uL (0.0-0.6) 11/23/19 07:53 Absolute Basos (auto) 0.0 10^3/uL (0.0-0.2) 11/23/19 07:53 Seg Neutrophils % 64.7 % (42-78) 11/23/19 07:53 Immature Granulocytes 0 % (Not Estab.) 11/19/19 02:36 Immature Gran # 0.0 x10E3/uL (0.0-0.1) 11/19/19 02:36 Nucleated RBCs TNP 11/19/19 02:36 Immature Blood Cells TNP 11/19/19 02:36 PT 12.4 SEC (11.4-15.4) 11/18/19 21:30 INR 0.92 11/18/19 21:30 VBG pH 7.44 (7.30-7.42) H 11/18/19 21:30 VBG pCO2 40.5 mmHg (35-63) 11/18/19 21:30 VBG HCO3 26.7 mmol/L (20-32) 11/18/19 21:30 VBG Base Excess 2.4 mmol/L 11/18/19 21:30 Sodium 135.9 mmol/L (137-145) L 11/23/19 07:53 Potassium 3.6 mmol/L (3.6-5.0) 11/23/19 07:53 Chloride 101 mmol/L (98-107) 11/23/19 07:53 Carbon Dioxide 26 mmol/L (22-30) 11/23/19 07:53 Anion Gap 9 (5-19) 11/23/19 07:53 BUN 12 mg/dL (7-20) 11/23/19 07:53 Creatinine 0.26 mg/dL (0.52-1.25) L 11/23/19 07:53 Est GFR ( Amer) > 60 (>60) 11/23/19 07:53 Est GFR (MDRD) Non-Af > 60 (>60) 11/23/19 07:53 Glucose 85 mg/dL (75-110) 11/23/19 07:53 Lactic Acid 0.7 mmol/L (0.7-2.1) 11/19/19 06:23 Calcium 8.9 mg/dL (8.4-10.2) 11/23/19 07:53 Total Bilirubin 0.5 mg/dL (0.2-1.3) 11/18/19 21:30 Direct Bilirubin 0.3 mg/dL (0.0-0.4) 11/18/19 21:30 Neonat Total Bilirubin Not Reportable 11/18/19 21:30 Neonat Direct Bilirubin Not Reportable 11/18/19 21:30 Neonat Indirect Bili Not Reportable 11/18/19 21:30 AST 41 U/L (14-36) H 11/18/19 21:30 ALT 47 U/L (<35) 11/18/19 21:30 Alkaline Phosphatase 147 U/L (38-126) H 11/18/19 21:30 Creatine Kinase < 20 U/L (30-135) L 11/19/19 15:44 CK-MB (CK-2) 1.04 ng/mL (<4.55) 11/19/19 15:44 Troponin I < 0.012 ng/mL 11/19/19 15:44 Total Protein 7.8 g/dL (6.3-8.2) 11/18/19 21:30 Albumin 3.8 g/dL (3.5-5.0) 11/18/19 21:30 TSH < 0.01 uIU/mL (0.47-4.68) L 11/23/19 07:53 Free T4 2.38 ng/dL (0.78-2.19) H 11/23/19 07:53 Free T3 pg/mL 3.49 pg/mL (2.77-5.27) 11/23/19 07:53 Serum HCG, Qual NEGATIVE (NEGATIVE) 11/18/19 21:30 Urine Color YELLOW 11/18/19 23:59 Urine Appearance CLEAR 11/18/19 23:59 Urine pH 7.0 (5.0-9.0) 11/18/19 23:59 Ur Specific Moon 1.026 11/18/19 23:59 Urine Protein 100 mg/dL (NEGATIVE) H 11/18/19 23:59 Urine Glucose (UA) NEGATIVE mg/dL (NEGATIVE) 11/18/19 23:59 Urine Ketones NEGATIVE mg/dL (NEGATIVE) 11/18/19 23:59 Urine Blood NEGATIVE (NEGATIVE) 11/18/19 23:59 Urine Nitrite (Reflex) NEGATIVE (NEGATIVE) 11/18/19 23:59 Urine Bilirubin NEGATIVE (NEGATIVE) 11/18/19 23:59 Urine Urobilinogen 4.0 mg/dL (<2.0) H 11/18/19 23:59 Leukocyte Esterase Rfl NEGATIVE (NEGATIVE) 11/18/19 23:59 Urine RBC (Auto) 3 /HPF 11/18/19 23:59 Urine WBC (Reflex) 2 /HPF 11/18/19 23:59 Squamous Epi Cells Auto 2 /HPF 11/18/19 23:59 Urine Mucus (Auto) FEW /LPF 11/18/19 23:59 Urine Ascorbic Acid 40 (NEGATIVE) H 11/18/19 23:59 RBC 3.54 x10E6/uL (3.77-5.28) L 11/19/19 02:36 Hgb 8.6 g/dL (11.1-15.9) L 11/19/19 02:36 Hct 25.6 % (34.0-46.6) L 11/19/19 02:36 MCV 72 fL (79-97) L 11/19/19 02:36 MCH 24.3 pg (26.6-33.0) L 11/19/19 02:36 MCHC 33.6 g/dL (31.5-35.7) 11/19/19 02:36 RDW 14.3 % (12.3-15.4) 11/19/19 02:36 Platelet Count 120 x10E3/uL (150-450) L 11/19/19 02:36 Total WBC 3.2 x10E3/uL (3.4-10.8) L 11/19/19 02:36 Neutrophils 63 % (Not Estab.) 11/19/19 02:36 Lymphocytes 24 % (Not Estab.) 11/19/19 02:36 Monocytes 13 % (Not Estab.) 11/19/19 02:36 Eosinophils 0 % (Not Estab.) 11/19/19 02:36 Basophils 0 % (Not Estab.) 11/19/19 02:36 Absolute Neutrophils 2.0 x10E3/uL (1.4-7.0) 11/19/19 02:36 Absolute Lymphocytes 0.8 x10E3/uL (0.7-3.1) 11/19/19 02:36 Absolute Monocytes 0.4 x10E3/uL (0.1-0.9) 11/19/19 02:36 Absolute Eosinophils 0.0 x10E3/uL (0.0-0.4) 11/19/19 02:36 Absolute Basophils 0.0 x10E3/uL (0.0-0.2) 11/19/19 02:36 Hematology Comment TNP 11/19/19 02:36 % CD4 Cells 22.4 % (30.8-58.5) L 11/19/19 02:36 Absolute CD4 Count 179 /uL (359-1519) L 11/19/19 02:36 T-Lymph CD4/CD8 Ratio 0.34 (0.92-3.72) L 11/19/19 02:36 % CD8 Cells 66.4 % (12.0-35.5) H 11/19/19 02:36 Absolute CD8 Count 531 /uL (109-897) 11/19/19 02:36 11/18/19 11/19/19 11/19/19 21:04 06:23 10:16 CK-MB (CK-2) 0.37 0.32 Troponin I < 0.012 < 0.012 < 0.012 11/19/19 15:44 CK-MB (CK-2) 1.04 Troponin I < 0.012 Impressions: Chest X-Ray 11/18/19 21:04 IMPRESSION: 1. No acute cardiothoracic abnormality. Abdomen/Pelvis CT 11/18/19 22:47 IMPRESSION: Moderate periportal edema with gallbladder wall thickening, both of which are nonspecific. Correlate for aggressive rehydration. No other acute findings within the abdomen or pelvis. Simple cyst located within the interpolar region of the left kidney. Additional subcentimeter low-density lesions located about both kidneys are too small to accurately characterize, including the smaller intermediate density lesion located within the interpolar region of the left kidney. Suspected soft tissue thickening overlying the coccyx. Correlate with physical examination as this could indicate a decubitus ulcer. TECHNICAL DOCUMENTATION: Quality ID # [id number]: Final reports with documentation of one or more dose reduction techniques (e.g., Automated exposure control, adjustment of the mA and/or kV according to patient size, use of iterative reconstruction technique) copyright 2011 [employer]- All Rights Reserved Stroke Is this a Stroke Patient?: No Acute Heart Failure - Is this a Heart Failure Patient?: No
== END 2019-11-23 14:45 | disposition home or self-care (01) | DRG 644 ==
LOC: ER 18:48 → EH 11-19 02:57 → 3W 11-19 18:38 → OBSVTOIN 11-20 11:35 → 4N 11-20 19:45
PROVIDERS: ADMIT Emergency Medicine; ATTEND Emergency Medicine
DX: E05.00 Thyrotoxicosis with diffuse goiter without thyrotoxic crisis or storm (principal); B20 Human immunodeficiency virus [HIV] disease; E44.0 Moderate protein-calorie malnutrition; R64 Cachexia; R13.11 Dysphagia, oral phase; E86.0 Dehydration; F17.200 Nicotine dependence, unspecified, uncomplicated; R00.0 Tachycardia, unspecified; Z91.14 Patient's other noncompliance with medication regimen; Z59.9 Problem related to housing and economic circumstances, unspecified; Z79.899 Other long term (current) drug therapy
CPT/HCPCS: 36415; 71046; 74177; 80048; 80053; 81001; 82550; 82553; 82803; 83605; 84439; 84443; 84481; 84484; 84703; 85025; 85610; 86360; 87040; 93005; 93010; 96361; 96374; 99285; G0378; J1644; J1800; J2270; J3490; J7040; J7120

== ENCOUNTER 2019-12-20 07:26 | Day surgery (SDC) | payer MEDICARE, MEDICAID ==
[2019-12-20 08:26] LABS: HEMATOCRIT 37.4 % (36.0-47.0); HEMOGLOBIN 12.4 g/dL (12.0-15.5); MEAN CORPUSCULAR HEMOGLOBIN 23.5 pg (27.0-33.4); MEAN CORPUSCULAR HGB CONC 33.1 g/dL (32.0-36.0); MEAN CORPUSCULAR VOLUME 71 fl (80-97); PLATELET COUNT 118 10^3/uL (150-450); RED BLOOD COUNT 5.26 10^6/uL (3.72-5.28); RED CELL DISTRIBUTION WIDTH 15.6 % (11.5-14.0); WHITE BLOOD COUNT 4.7 10^3/uL (4.0-10.5)
[2019-12-20 08:33] LABS: INTERNATIONAL RATION (INR) 1.01; PROTHROMBIN TIME 13.3 SEC (11.4-15.4)
[2019-12-20 08:34] LABS: PARTIAL THROMBOPLASTIN TIME 33.4 SEC (23.5-35.8)
[2019-12-20 08:44] LABS: BLOOD UREA NITROGEN 25 mg/dL (7-20)
[2019-12-20] MEDS ORDERED: FENTANYL CITRATE INJ/PF 100 MCG/2 ML AMPUL ONE (08:54)
[2019-12-20] MEDS ORDERED: MIDAZOLAM 2 MG/2 ML INJ ONE (08:54)
[2019-12-20] MEDS ORDERED: LIDOCAINE 1% INJ-PF (10 MG/ML) 30 ML SDV ONE (08:55)
[2019-12-20 11:23] VITALS: BP 138/99
--- NOTE | 2019-12-20 16:41 | RADIOLOGY REPORT (SQ) ---
EXAM DESCRIPTION: REPLACE/EXCHANGE G TUBE COMPLETED DATE/TIME: 12/20/2019 9:56 am REASON FOR STUDY: Z93.1, G-TUBE EXCHANGE COMPARISON: None. TECHNIQUE: PROCEDURALIST: Keny Miranda MD PROCEDURE: Exchange of gastrostomy tube. FLUORO TIME: 0.60 minutes. The procedure, risks, benefits, and alternatives were discussed with the patient in the preprocedural area, and all questions were answered. Informed consent was obtained verbally and in writing. The patient was then brought to the procedural suite, positioned supine on the fluoroscopy table, and a time-out was performed. At 1st the left upper quadrant and the external portion of the existing gastrostomy tube were prepped and draped with 2% chlorhexidine utilizing standard sterile technique. After that, the tissues arou nd the gastrostomy tube were anesthestized with 1% lidocaine. The external portion of the gastrostom y tube was then cut and the tube was removed over an Amplatz wire. A new 20 Mexican gastrostomy tube was then advanced over the Amplatz wire into the gastric lumen. After that, the Amplatz wire was rem gabby and the retention balloon of the gastrostomy tube was insufflated and apposed to the anterior wa ll of the stomach. The external retention flange of the tube was in turn apposed to the abdominal wal l. The gastrostomy tube was then injected with contrast and a fluoroscopic image was obtained to documen t proper position ; after that, the gastrostomy tube was flushed with sterile saline and a sterile dr essing was applied over it. At the end of the procedure the patient's condition was unchanged from the preprocedural baseline. The patient tolerated the procedure well without immediate complication. IV conscious sedation was administered at the direction of the performing physician by a homa welch. 1 milligrams of Versed and 75 micrograms of fentanyl were administered. Physiologic monitoring was provided before, during, and after sedation. The total sedation time was 2 5 minutes. Documentation of [id number] time performing proceduralist spent monitoring the patient: 15 minutes. LIMITATIONS: None. FINDINGS: Integrated into the Technique. IMPRESSION: Successful exchange of a 20 Mexican gastrostomy tube utilizing fluoroscopic guidance. COMMENT: PQRS 6045F: Fluoroscopy time of the procedure is documented in the report. TECHNICAL DOCUMENTATION: JOB ID: [id number] Reading location - IP/workstation name: [email or web address]
== END 2019-12-20 10:50 | disposition home or self-care (01) ==
LOC: CCL 07:26
PROVIDERS: ATTEND Radiology Diagnostic Radiology
DX: Z79.01 Long term (current) use of anticoagulants (principal); E05.00 Thyrotoxicosis with diffuse goiter without thyrotoxic crisis or storm; Z21 Asymptomatic human immunodeficiency virus [HIV] infection status; Z43.1 Encounter for attention to gastrostomy; F17.210 Nicotine dependence, cigarettes, uncomplicated
CPT/HCPCS: 36415; 84520; 82565; 84703; 85027; 85610; 85730; 77001; 49450; Q9967; J2250; J3010; J3490